=== PATIENT | female | born 1940 | race American Indian/Alaskan Native ===

== ENCOUNTER 2016-10-10 09:09 | Emergency (ER) | payer MEDICARE ==
--- NOTE | 2016-10-10 13:54 | Emergency Department Report ---
- General Chief Complaint: Upper Respiratory Infection Stated Complaint: FACIAL PAIN Time Seen by Provider: 10/10/16 13:33 Source: patient Mode of arrival: Ambulatory Limitations: Physical Limitation - History of Present Illness Initial Comments: Patient complains of facial pain and pressure, headache, runny and stuffy nose, sinus drainage, cough productive of phlegm, and bilateral ear ache 6-7 days. States called PCP and instructed to come to ED. Denies fever, chills, N/V/D, abdomen or flank pain, chest pain or discomfort, weakness, dizziness. Denies self treatment piror to ED presentation. Denies other acute complaints today. - Related Data Home Medications Medication Instructions Recorded Confirmed Last Taken Esomeprazole Magnesium [NexIUM] 40 mg PO QDAY 09/18/13 07/24/14 07/24/14 Insulin Aspart [NovoLOG 100 10 units SUBCONJ UNK 09/18/13 07/24/14 07/24/14 UNITS/ML VIAL] Rosuvastatin (Nf) [Crestor] 10 mg PO QDAY 09/18/13 07/24/14 07/24/14 metFORMIN [Glucophage] 1,000 mg PO BID 09/18/13 07/24/14 07/24/14 Previous Rx's Medication Instructions Recorded Last Taken Type Ipratropium/Albuterol Sulfate 1 ampul IH TID #90 ampul.neb 09/23/13 07/24/14 Rx [Duoneb 0.5 mg-3 mg/3 ml Soln] Fluticasone Propionate [Flonase] 200 mcg NS QDAY #1 spray 02/14/14 07/24/14 Rx Fluticasone/Salmeterol [Advair 1 puff IH BID #1 disk.w.dev 02/14/14 07/24/14 Rx Diskus 500-50 mcg] Lactobacillus Acidophil [Lactinex] 1 each PO TID #30 tablet 02/14/14 07/24/14 Rx Montelukast [Singulair] 10 mg PO QHS #30 tablet 02/14/14 07/24/14 Rx Pregabalin [Lyrica] 150 mg PO BID 30 Days 02/14/14 07/24/14 Rx Sodium Chloride 0.65% Nasal [Deep 2 spray NS TID #1 bottle 02/14/14 07/24/14 Rx Sea NASAL SPRAY] buPROPion SR [Wellbutrin SR] 150 mg PO QDAY #30 tablet 02/14/14 07/24/14 Rx Cefuroxime Axetil [Ceftin] 500 mg PO Q12H #10 tablet 07/27/14 Unknown Rx Insulin Glargine,Hum.rec.anlog 24 units SUBCONJ QHS #1000 ml 07/27/14 07/24/14 Rx [Lantus Solostar] Prednisone [predniSONE 10 mg 10 mg PO .TAPER #1 tab.ds.pk 07/27/14 Unknown Rx (6-Day Pack, 21 Tabs)] guaiFENesin ER [Mucinex ER] 600 mg PO Q12H PRN #30 tablet.er 07/27/14 Unknown Rx Amoxicillin/K Clav Tab [Augmentin 1 tab PO Q12HR #20 tab 10/10/16 Unknown Rx 875 mg] Fluticasone [Flonase] 1 spray NS QDAY #1 bottle 10/10/16 Unknown Rx Loratadine/Pseudoephedrine 1 tab PO DAILY #30 tablet 10/10/16 Unknown Rx [Claritin-D 24Hr] Allergies Allergy/AdvReac Type Severity Reaction Status Date / Time No Known Allergies Allergy Verified 10/10/16 09:46 ED Review of Systems ROS: Stated complaint: FACIAL PAIN Other details as noted in HPI Comment: All other systems reviewed and negative ED Past Medical Hx - Past Medical History Hx Hypertension: Yes () Hx Heart Attack/AMI: No Hx Congestive Heart Failure: No Hx Diabetes: Yes Hx Deep Vein Thrombosis: No Hx Pulmonary Embolism: No Hx GERD: Yes Hx Liver Disease: No Hx Sickle Cell Disease: No Hx Arthritis: Yes (HANDS AND LEFT SHOULDER) Hx Asthma: Yes Hx COPD: Yes Hx Tuberculosis: No Hx HIV: No - Surgical History Hx Coronary Stent: No Hx Open Heart Surgery: No Hx Pacemaker: No Hx Internal Defibrillator: No Hx Cholecystectomy: No Hx Appendectomy: No Hx Breast Surgery: No - Social History Smoking Status: Never Smoker Substance Use Type: None - Medications Home Medications: Home Medications Medication Instructions Recorded Confirmed Last Taken Type Esomeprazole Magnesium [NexIUM] 40 mg PO QDAY 09/18/13 07/24/14 07/24/14 History Insulin Aspart [NovoLOG 100 10 units SUBCONJ UNK 09/18/13 07/24/14 07/24/14 History UNITS/ML VIAL] Rosuvastatin (Nf) [Crestor] 10 mg PO QDAY 09/18/13 07/24/14 07/24/14 History metFORMIN [Glucophage] 1,000 mg PO BID 09/18/13 07/24/14 07/24/14 History Ipratropium/Albuterol Sulfate 1 ampul IH TID #90 ampul.neb 09/23/13 07/24/1412/02 Rx [Duoneb 0.5 mg-3 mg/3 ml Soln] Fluticasone Propionate [Flonase] 200 mcg NS QDAY #1 spray 02/14/14 07/24/1412/02 Rx Fluticasone/Salmeterol [Advair 1 puff IH BID #1 disk.w.dev 02/14/14 07/24/1412/02 Rx Diskus 500-50 mcg] Lactobacillus Acidophil [Lactinex] 1 each PO TID #30 tablet 02/14/14 07/24/14 Rx Montelukast [Singulair] 10 mg PO QHS #30 tablet 02/14/14 07/24/14 07/24/14 Rx Pregabalin [Lyrica] 150 mg PO BID 30 Days 02/14/14 07/24/14 07/24/14 Rx Sodium Chloride 0.65% Nasal [Deep 2 spray NS TID #1 bottle 02/14/14 07/24/1412/02 Rx Sea NASAL SPRAY] buPROPion SR [Wellbutrin SR] 150 mg PO QDAY #30 tablet 02/14/14 07/24/14 Rx Cefuroxime Axetil [Ceftin] 500 mg PO Q12H #10 tablet 07/27/14 Unknown Rx Insulin Glargine,Hum.rec.anlog 24 units SUBCONJ QHS #1000 ml 07/27/14 07/24/14 07/24/14 Rx [Lantus Solostar] Prednisone [predniSONE 10 mg 10 mg PO .TAPER #1 tab.ds.pk 07/27/14 Unknown Rx (6-Day Pack, 21 Tabs)] guaiFENesin ER [Mucinex ER] 600 mg PO Q12H PRN #30 tablet.er 07/27/14 Unknown Rx Amoxicillin/K Clav Tab [Augmentin 1 tab PO Q12HR #20 tab 10/10/16 Unknown Rx 875 mg] Fluticasone [Flonase] 1 spray NS QDAY #1 bottle 10/10/16 Unknown Rx Loratadine/Pseudoephedrine 1 tab PO DAILY #30 tablet 10/10/16 Unknown Rx [Claritin-D 24Hr] ED Physical Exam - General Limitations: Physical Limitation General appearance: alert, in no apparent distress - Head Head exam: Present: atraumatic, normocephalic - Eye Eye exam: Present: normal appearance, PERRL, EOMI. Absent: scleral icterus, conjunctival injection, periorbital swelling, periorbital tenderness - ENT ENT exam: Present: mucous membranes moist, TM's normal bilaterally, normal external ear exam. Absent: normal orophraynx (PND) - Neck Neck exam: Present: normal inspection, full ROM. Absent: tenderness, meningismus, lymphadenopathy - Respiratory Respiratory exam: Present: normal lung sounds bilaterally. Absent: respiratory distress, wheezes, rales, rhonchi, stridor, chest wall tenderness, accessory muscle use, decreased breath sounds, prolonged expiratory - Cardiovascular Cardiovascular Exam: Present: regular rate, normal rhythm - GI/Abdominal GI/Abdominal exam: Present: soft, normal bowel sounds. Absent: tenderness - Extremities Exam Extremities exam: Present: normal inspection, full ROM, normal capillary refill. Absent: pedal edema - Neurological Exam Neurological exam: Present: alert, oriented X3, abnormal gait (uses cane to ambulate.), reflexes normal. Absent: motor sensory deficit - Psychiatric Psychiatric exam: Present: normal affect, normal mood - Skin Skin exam: Present: warm, dry, intact, normal color. Absent: rash, cyanosis, diaphoretic, pallor ED Course Vital Signs 10/10/16 09:42 Temperature 98.5 F Pulse Rate 96 H Respiratory 20 Rate Blood Pressure 127/69 O2 Sat by Pulse 100 Oximetry Critical care attestation.: If time is entered above; I have spent that time in minutes in the direct care of this critically ill patient, excluding procedure time. ED Disposition Clinical Impression: Sinusitis Qualifiers: Sinusitis location: frontal Chronicity: acute Recurrence: not specified as recurrent Qualified Code(s): J01.10 - Acute frontal sinusitis, unspecified Disposition: DISCHARGED TO HOME OR SELFCARE Is pt being admited?: No Does the pt Need Aspirin: No Condition: Stable Instructions: Sinusitis (ED) Prescriptions: Amoxicillin/K Clav Tab [Augmentin 875 mg] 1 tab PO Q12HR #20 tab Loratadine/Pseudoephedrine [Claritin-D 24Hr] 1 tab PO DAILY #30 tablet Fluticasone [Flonase] 1 spray NS QDAY #1 bottle Referrals: HO TIRADO MD [Primary Care Provider] - 2-3 Days
[2016-10-10 14:27] VITALS: BP 153/72
== END 2016-10-10 14:15 | disposition home or self-care (01) ==
LOC: ED 09:09
DX: J01.10 Acute frontal sinusitis, unspecified (principal); I10 Essential (primary) hypertension; E11.9 Type 2 diabetes mellitus without complications; K21.9 Gastro-esophageal reflux disease without esophagitis; M19.90 Unspecified osteoarthritis, unspecified site; J45.909 Unspecified asthma, uncomplicated; Z79.4 Long term (current) use of insulin
CPT/HCPCS: 99282

== ENCOUNTER 2016-12-24 15:59 | Emergency (ER) | payer MEDICARE ==
[2016-12-24 17:16] LABS: Calcium 8.4 mg/dL (8.4-10.2); Hematocrit 36.3 % (30.3-42.9); Mean Corpuscular HGB Conc 33 % (30-34); Mean Corpuscular Hemoglobin 28 pg (28-32); Mean Corpuscular Volume 85 fl (79-97); Platelet Count 258 K/mm3 (140-440); Potassium 4.8 mmol/L (3.6-5.0); Red Blood Count 4.26 M/mm3 (3.65-5.03); Red Cell Distribution Width 14.8 % (13.2-15.2); White Blood Count 5.2 K/mm3 (4.5-11.0)
[2016-12-24 17:55] LABS: Blastocytes % (Manual) 0 %
[2016-12-24 17:56] LABS: Diff Status Complete; Platelet Estimate Consistent w Auto; RBC Morphology Normal
--- NOTE | 2016-12-24 21:13 | Emergency Department Report ---
HPI - General Chief Complaint: Extremity Problem,Nontraumatic Time Seen by Provider: 12/24/16 20:27 - HPI HPI: This is a 76-year-old Afro[place] female who presents to the emergency department from her home with her daughter at bedside, whom she lives with. The patient has been here for 2 main reasons. First, the patient has been having insomnia for the past few nights. For the past few weeks if not months, the patient has been having some type of hallucination which she feels that there is something in her bed that is moving around in the mattress as well as in a recliner that she uses. This hallucination or sensation keeps her from sleeping. He got to the point where the patient even can't open her previous mattress to try and find out what is inside. She now has a new mattress but still has the same hallucinations. She understands that there was nothing found in the previous mattress but still cannot convince herself that there is nothing in her current mattress. The patient's other complaint is that she has been having a few days of bilateral lower extremity swelling and some pain in the knees. There is been no trauma. She denies any skin color change. The patient does have a history of depression for which she takes Wellbutrin but denies any suicidal or homicidal ideations, auditory hallucinations. The patient also has a history of arthritis, asthma, COPD not on home O2, insulin- dependent diabetes, GERD, hypertension. Her primary care doctor is Dr. Keshawn Melgar. No recent travel or sick contacts at home. ED Past Medical Hx - Past Medical History Previous Medical History?: Yes Hx Hypertension: Yes (1980s) Hx Heart Attack/AMI: No Hx Congestive Heart Failure: No Hx Diabetes: Yes Hx Deep Vein Thrombosis: No Hx Pulmonary Embolism: No Hx GERD: Yes Hx Liver Disease: No Hx Sickle Cell Disease: No Hx Arthritis: Yes (HANDS AND LEFT SHOULDER) Hx Asthma: Yes Hx COPD: Yes Hx Tuberculosis: No Hx HIV: No - Surgical History Hx Coronary Stent: No Hx Open Heart Surgery: No Hx Pacemaker: No Hx Internal Defibrillator: No Hx Cholecystectomy: No Hx Appendectomy: No Hx Breast Surgery: No - Social History Smoking Status: Never Smoker Substance Use Type: None - Medications Home Medications: Home Medications Medication Instructions Recorded Confirmed Last Taken Type Esomeprazole Magnesium [NexIUM] 40 mg PO QDAY 09/18/13 07/24/14 07/24/14 History Insulin Aspart [NovoLOG 100 10 units SUBCONJ UNK 09/18/13 07/24/14 07/24/14 History UNITS/ML VIAL] Rosuvastatin (Nf) [Crestor] 10 mg PO QDAY 09/18/13 07/24/14 07/24/14 History metFORMIN [Glucophage] 1,000 mg PO BID 09/18/13 07/24/14 07/24/14 History Ipratropium/Albuterol Sulfate 1 ampul IH TID #90 ampul.neb 09/23/13 07/24/1412/02 Rx [Duoneb 0.5 mg-3 mg/3 ml Soln] Fluticasone Propionate [Flonase] 200 mcg NS QDAY #1 spray 02/14/14 07/24/1412/02 Rx Fluticasone/Salmeterol [Advair 1 puff IH BID #1 disk.w.dev 02/14/14 07/24/1412/02 Rx Diskus 500-50 mcg] Lactobacillus Acidophil [Lactinex] 1 each PO TID #30 tablet 02/14/14 07/24/14 Rx Montelukast [Singulair] 10 mg PO QHS #30 tablet 02/14/14 07/24/14 07/24/14 Rx Pregabalin [Lyrica] 150 mg PO BID 30 Days 02/14/14 07/24/14 07/24/14 Rx Sodium Chloride 0.65% Nasal [Deep 2 spray NS TID #1 bottle 02/14/14 07/24/1412/02 Rx Sea NASAL SPRAY] buPROPion SR [Wellbutrin SR] 150 mg PO QDAY #30 tablet 02/14/14 07/24/14 Rx Cefuroxime Axetil [Ceftin] 500 mg PO Q12H #10 tablet 07/27/14 Unknown Rx Insulin Glargine,Hum.rec.anlog 24 units SUBCONJ QHS #1000 ml 07/27/14 07/24/14 07/24/14 Rx [Lantus Solostar] Prednisone [predniSONE 10 mg 10 mg PO .TAPER #1 tab.ds.pk 07/27/14 Unknown Rx (6-Day Pack, 21 Tabs)] guaiFENesin ER [Mucinex ER] 600 mg PO Q12H PRN #30 tablet.er 07/27/14 Unknown Rx Amoxicillin/K Clav Tab [Augmentin 1 tab PO Q12HR #20 tab 10/10/16 Unknown Rx 875 mg] Fluticasone [Flonase] 1 spray NS QDAY #1 bottle 10/10/16 Unknown Rx Loratadine/Pseudoephedrine 1 tab PO DAILY #30 tablet 10/10/16 Unknown Rx [Claritin-D 24Hr] ALPRAZolam [Xanax TAB] 0.25 mg PO QHS PRN #8 tablet 12/24/16 Unknown Rx ED Review of Systems ROS: Stated complaint: SWOLLEN LEGS/PAIN /ANXIETY/HALLUCINATIONS Other details as noted in HPI Comment: All other systems reviewed and negative Constitutional: denies: chills, fever Eyes: denies: eye pain, eye discharge, vision change ENT: denies: ear pain, throat pain Respiratory: denies: cough, shortness of breath, wheezing Cardiovascular: edema. denies: chest pain Gastrointestinal: denies: abdominal pain, nausea, diarrhea Genitourinary: denies: urgency, dysuria, discharge Musculoskeletal: denies: back pain, joint swelling, arthralgia Skin: denies: rash, lesions Neurological: denies: headache, weakness, paresthesias Psychiatric: anxiety, other (generalized hallucinations, insomnia). denies: auditory hallucinations, visual hallucinations, homicidal thoughts, suicidal thoughts Physical Exam - Physical Exam Vital Signs: Vital Signs 12/24/16 12/24/16 16:05 20:58 Temperature 97.5 F L Pulse Rate 82 Respiratory 18 18 Rate Blood Pressure 122/71 O2 Sat by Pulse 100 100 Oximetry Physical Exam: GENERAL: The patient is well-developed well-nourished. HEENT: Normocephalic. Atraumatic. Extraocular motions are intact. Patient has moist mucous membranes. Pupils equal reactive to light bilaterally. NECK: Supple. Trachea is midline. CHEST/LUNGS: Clear to auscultation. There is no respiratory distress noted. HEART/CARDIOVASCULAR: Regular. There is no tachycardia. There is no gallop rub or murmur. ABDOMEN: Abdomen is soft, nontender. Patient has normal bowel sounds. There is no abdominal distention. SKIN: One plus pitting edema of the bilateral lower extremity. No erythema, warmth, rash. No weeping. Skin is warm and dry. NEURO: The patient is awake, alert, and oriented. The patient is cooperative. The patient has no focal neurologic deficits. The patient has normal speech. Cranial nerves II through XII grossly intact. MUSCULOSKELETAL: There is some mild tenderness to palpation to the bilateral knees. Negative anterior posterior drawer test. Pedal pulses are intact. There is no evidence of acute injury. ED Course Vital Signs 12/24/16 12/24/16 16:05 20:58 Temperature 97.5 F L Pulse Rate 82 Respiratory 18 18 Rate Blood Pressure 122/71 O2 Sat by Pulse 100 100 Oximetry ED Medical Decision Making - Lab Data Result diagrams: 12/24/16 16:46 12/24/16 16:46 - Medical Decision Making 76 year old female presents with a few days of some knee pain and some lower extremity swelling. She also complains of a few days of insomnia and some more chronic but specific hallucination. Regarding the patient's knee pain and lower extremity swelling, there is no obvious deformities. There are no skin color changes. There has been no trauma. For this reason I did not feel that imaging of the knees by x-ray was necessary. However with the lower extremity swelling, a BNP was obtained came back at 40 and therefore is very low suspicion for CHF. It is still low suspicion for a DVT as well as it is bilateral and the patient is not completely immobile and has not had any recent surgery. However this will be ruled out with a venous Doppler tomorrow. Patient was given a order to go to outpatient radiology to have venous Doppler done. Positive for DVTs, she will be referred back to the emergency department. If negative, she will continue to follow-up with her primary care doctor. The other issue for this patient is some recent insomnia and a hallucination that there is something within her mattress and/or recliner. While patient understands that her previous mattress did not have anything in it, because she had opened it up, she is unable to convince herself at night while sleeping that there is nothing in the mattress. However it seems to keep her from sleeping and appears to be a chronic issue. However the patient does not have any auditory hallucinations, specific visual hallucinations, or any suicidal or homicidal ideations. She does not appear to be a candidate to be made a 1013 for inpatient psychiatric treatment. Since patient has good follow-up with primary care, lives and is monitored by her daughter, I have given the patient a small prescription of low-dose Xanax to help her get some rest and hopefully will help with her hallucinations as well. However they understand to return if there is any change in her mental status or psychiatric status, otherwise they will follow up with primary care doctor. They are aware of the side effects and risks of the Xanax including respiratory depression. - Differential Diagnosis schizophrenia, CHF, venous stasis, DVT, dementia Critical Care Time: No Critical care attestation.: If time is entered above; I have spent that time in minutes in the direct care of this critically ill patient, excluding procedure time. ED Disposition Clinical Impression: Hallucinations, Renal insufficiency Insomnia Qualifiers: Insomnia type: unspecified Qualified Code(s): G47.00 - Insomnia, unspecified Lower extremity edema Qualifiers: Laterality: bilateral Qualified Code(s): R60.0 - Localized edema Disposition: DISCHARGED TO HOME OR SELFCARE Is pt being admited?: No Condition: Stable Instructions: Leg Edema (ED), Insomnia (ED), Anxiety (ED) Additional Instructions: Please follow-up tomorrow in the outpatient imaging department for lower extremity ultrasounds to rule out a DVT. Call the number provided to schedule an appointment. If the ultrasound is positive, he will be redirected back to the emergency department. If negative, follow up outpatient. Please follow-up with your primary care doctor in the next few days regarding your insomnia, nighttime hallucinations, lower extremity swelling and impaired kidney function. Return to the emergency department with any worsening of your symptoms or any acute distress. Prescriptions: ALPRAZolam [Xanax TAB] 0.25 mg PO QHS PRN #8 tablet PRN Reason: Insomnia Referrals: PRIMARY CAREMD [Primary Care Provider] - 3-5 Days Time of Disposition: 23:06
[2016-12-24 21:28] LABS: Bilirubin,Urine NEG (Negative)
[2016-12-24 21:29] LABS: Blood,Urine NEG (Negative); Ketones,Urine NEG (Negative); Leukocyte Esterase,Urine NEG (Negative); Mucus,Urine FEW /HPF; Nitrite,Urine NEG (Negative); Protein,Urine <15 mg/dL mg/dL (Negative); Urobilinogen,Urine < 2.0 mg/dL (<2.0)
[2016-12-24 22:42] VITALS: BP 138/70
[2016-12-24] MEDS ORDERED: XANAX PO ONE (23:04)
== END 2016-12-24 23:21 | disposition home or self-care (01) ==
LOC: ED 15:59
DX: N28.9 Disorder of kidney and ureter, unspecified (principal); R44.3 Hallucinations, unspecified; G47.00 Insomnia, unspecified; R60.0 Localized edema; I10 Essential (primary) hypertension; E11.9 Type 2 diabetes mellitus without complications; K21.9 Gastro-esophageal reflux disease without esophagitis; M19.90 Unspecified osteoarthritis, unspecified site; J45.909 Unspecified asthma, uncomplicated; F32.9 Major depressive disorder, single episode, unspecified; J44.9 Chronic obstructive pulmonary disease, unspecified; Z79.4 Long term (current) use of insulin
CPT/HCPCS: 36415; 80048; 81001; 83880; 84443; 85007; 85025; 99283

== ENCOUNTER 2017-03-28 09:16 | Emergency (ER) | payer MEDICARE ==
[2017-03-28 10:10] LABS: Hematocrit 39.9 % (30.3-42.9); Mean Corpuscular HGB Conc 33 % (30-34); Mean Corpuscular Hemoglobin 28 pg (28-32); Mean Corpuscular Volume 86 fl (79-97); Platelet Count 303 K/mm3 (140-440); Red Blood Count 4.66 M/mm3 (3.65-5.03); Red Cell Distribution Width 14.4 % (13.2-15.2); White Blood Count 4.4 K/mm3 (4.5-11.0)
[2017-03-28 10:23] LABS: BUN/Creatinine Ratio 14.16; Calcium 9.2 mg/dL (8.4-10.2); Chloride 91.2 mmol/L (98-107); Potassium 4.6 mmol/L (3.6-5.0)
[2017-03-28 10:45] LABS: Bacteria,Urine 1+ /HPF (Negative); Bilirubin,Urine NEG (Negative); Blood,Urine NEG (Negative); Ketones,Urine NEG (Negative); Leukocyte Esterase,Urine NEG (Negative); Mucus,Urine FEW /HPF; Nitrite,Urine NEG (Negative); Protein,Urine <15 mg/dL mg/dL (Negative); Urobilinogen,Urine < 2.0 mg/dL (<2.0)
[2017-03-28 11:01] LABS: Basophils % (Manual) 0 % (0.0-1.8); Blastocytes % (Manual) 0 %
[2017-03-28 11:02] LABS: Diff Status Complete; RBC Morphology Normal
[2017-03-28] MEDS ORDERED: NACL 0.9% 500 ML 500 ML IV ONE ×2 (13:23→14:10)
[2017-03-28] MEDS ORDERED: NACL ONE (13:35)
--- NOTE | 2017-03-28 14:03 | Cat Scan Report ---
CT FACIAL BONES WITH CONTRAST: 03/28/17 09:16:00 CLINICAL: Facial swelling. TECHNIQUE: Volumetric acquisition and 1.25 mm scan reconstructions after the uneventful intravenous injection of 100 cc Omnipaque-300. Consent was obtained prior to the administration of contrast. Sagittal and coronal reformats were performed. FINDINGS: Pansinusitis with complete opacification of bilateral frontal, ethmoid and sphenoid sinuses. Near-complete opacification of bilateral maxillary sinuses. The facial bones are intact with no fracture and no bone lesion. Only a few teeth are identified. However, the mandible and maxilla are intact. No signs of abscess or osteomyelitis. The mucosal structures of the nasopharynx, oropharynx and hypopharynx are normal. Imaged portions of the larynx are normal. The imaged portions of the thyroid are normal. A 1 cm cyst of the left submandibular gland. The salivary glands are otherwise normal. No mass or lymphadenopathy. There are shotty lymph nodes throughout the neck. The superficial and deep veins of the neck are relatively large. No evidence of venous or arterial thrombosis. A soft tissue mass of the right supraorbital region measures approximately 3.5 x 1.5 cm. There is heterogeneous enhancement and areas of hypodensity centrally within the mass. No air is identified. The soft tissues are otherwise normal. No other inflammatory changes. IMPRESSION: 1. Pansinusitis. 2. A 3.5 x 1.5 cm right super orbital soft tissue mass with heterogeneous enhancement. Inflammatory mass and tumor are considerations. No air is identified to definitively diagnose abscess. 3. Venous congestion of the head and neck without an identified etiology. 4. A benign 1 cm left submandibular gland cyst.
--- NOTE | 2017-03-28 14:54 | Emergency Department Report ---
HPI - General Chief Complaint: Skin/Abscess/Foreign Body Time Seen by Provider: 03/28/17 13:11 - HPI HPI: This is a 76-year-old Afro-[place] female presents emergency department from home with complaint of some redness and swelling just above the right eyebrow that has been there and getting progressively worse since the end of February. It is tender to palpation. There has been no bleeding, weeping or drainage from it. She has not taken anything for her symptoms prior to presentation. The area is also very itchy since last weekend. She has a past medical history of arthritis, asthma, COPD, diabetes and hypertension. She is insulin-dependent diabetic and says she is compliant with her medications. No recent travel or sick contacts at home. ED Past Medical Hx - Past Medical History Hx Hypertension: Yes (1980s) Hx Heart Attack/AMI: No Hx Congestive Heart Failure: No Hx Diabetes: Yes Hx Deep Vein Thrombosis: No Hx Pulmonary Embolism: No Hx GERD: Yes Hx Liver Disease: No Hx Sickle Cell Disease: No Hx Arthritis: Yes (HANDS AND LEFT SHOULDER) Hx Asthma: Yes Hx COPD: Yes Hx Tuberculosis: No Hx HIV: No Additional medical history: HIGH CHOLESTEROL - Surgical History Hx Coronary Stent: No Hx Open Heart Surgery: No Hx Pacemaker: No Hx Internal Defibrillator: No Hx Cholecystectomy: No Hx Appendectomy: No Hx Breast Surgery: No Additional Surgical History: SINUS SURGERY - Social History Smoking Status: Never Smoker Substance Use Type: None - Medications Home Medications: Home Medications Medication Instructions Recorded Confirmed Last Taken Type Esomeprazole Magnesium [NexIUM] 40 mg PO QDAY 09/18/13 07/24/14 07/24/14 History Insulin Aspart [NovoLOG 100 10 units SUBCONJ UNK 09/18/13 07/24/14 07/24/14 History UNITS/ML VIAL] Rosuvastatin (Nf) [Crestor] 10 mg PO QDAY 09/18/13 07/24/14 07/24/14 History metFORMIN [Glucophage] 1,000 mg PO BID 09/18/13 07/24/14 07/24/14 History Ipratropium/Albuterol Sulfate 1 ampul IH TID #90 ampul.neb 09/23/13 07/24/1412/02 Rx [Duoneb 0.5 mg-3 mg/3 ml Soln] Fluticasone Propionate [Flonase] 200 mcg NS QDAY #1 spray 02/14/14 07/24/1412/02 Rx Fluticasone/Salmeterol [Advair 1 puff IH BID #1 disk.w.dev 02/14/14 07/24/1412/02 Rx Diskus 500-50 mcg] Lactobacillus Acidophil [Lactinex] 1 each PO TID #30 tablet 02/14/14 07/24/14 Rx Montelukast [Singulair] 10 mg PO QHS #30 tablet 02/14/14 07/24/14 07/24/14 Rx Pregabalin [Lyrica] 150 mg PO BID 30 Days 02/14/14 07/24/14 07/24/14 Rx Sodium Chloride 0.65% Nasal [Deep 2 spray NS TID #1 bottle 02/14/14 07/24/1412/02 Rx Sea NASAL SPRAY] buPROPion SR [Wellbutrin SR] 150 mg PO QDAY #30 tablet 02/14/14 07/24/14 Rx Cefuroxime Axetil [Ceftin] 500 mg PO Q12H #10 tablet 07/27/14 Unknown Rx Insulin Glargine,Hum.rec.anlog 24 units SUBCONJ QHS #1000 ml 07/27/14 07/24/14 07/24/14 Rx [Lantus Solostar] Prednisone [predniSONE 10 mg 10 mg PO .TAPER #1 tab.ds.pk 07/27/14 Unknown Rx (6-Day Pack, 21 Tabs)] guaiFENesin ER [Mucinex ER] 600 mg PO Q12H PRN #30 tablet.er 07/27/14 Unknown Rx Amoxicillin/K Clav Tab [Augmentin 1 tab PO Q12HR #20 tab 10/10/16 Unknown Rx 875 mg] Fluticasone [Flonase] 1 spray NS QDAY #1 bottle 10/10/16 Unknown Rx Loratadine/Pseudoephedrine 1 tab PO DAILY #30 tablet 10/10/16 Unknown Rx [Claritin-D 24Hr] ALPRAZolam [Xanax TAB] 0.25 mg PO QHS PRN #8 tablet 12/24/16 Unknown Rx Sulfamethoxazole/Trimethoprim 1 each PO BID #14 tablet 03/28/17 Unknown Rx [Bactrim DS TAB] ED Review of Systems ROS: Stated complaint: EYE SWOLLEN Other details as noted in HPI Comment: All other systems reviewed and negative Constitutional: denies: chills, fever Eyes: denies: eye discharge, vision change ENT: denies: ear pain, throat pain Respiratory: denies: cough, shortness of breath, wheezing Cardiovascular: denies: chest pain, palpitations Gastrointestinal: denies: abdominal pain, nausea, diarrhea Genitourinary: denies: urgency, dysuria, discharge Musculoskeletal: denies: back pain, joint swelling, arthralgia Skin: lesions, pruritus Neurological: denies: headache, weakness, paresthesias Physical Exam - Physical Exam Vital Signs: Vital Signs 03/28/17 03/28/17 03/28/17 09:40 13:06 13:07 Temperature 98.2 F Pulse Rate 99 H Respiratory 17 Rate Blood Pressure 163/86 136/85 136/85 O2 Sat by Pulse 100 100 Oximetry 03/28/17 03/28/17 03/28/17 13:09 13:11 13:13 Temperature Pulse Rate Respiratory Rate Blood Pressure 136/85 136/85 136/85 O2 Sat by Pulse 100 99 100 Oximetry 03/28/17 03/28/17 03/28/17 13:15 13:17 13:19 Temperature Pulse Rate Respiratory Rate Blood Pressure 136/85 136/85 136/85 O2 Sat by Pulse 99 99 100 Oximetry 03/28/17 03/28/17 03/28/17 13:21 13:23 13:25 Temperature Pulse Rate Respiratory Rate Blood Pressure 136/85 136/85 136/85 O2 Sat by Pulse 100 99 100 Oximetry 03/28/17 03/28/17 03/28/17 13:27 13:29 13:30 Temperature Pulse Rate Respiratory Rate Blood Pressure 136/85 136/85 151/75 O2 Sat by Pulse 100 100 100 Oximetry 03/28/17 03/28/17 03/28/17 13:31 13:38 14:01 Temperature Pulse Rate Respiratory 17 Rate Blood Pressure 151/75 136/85 O2 Sat by Pulse 99 100 100 Oximetry 03/28/17 03/28/17 03/28/17 14:03 14:05 14:07 Temperature Pulse Rate Respiratory Rate Blood Pressure 136/85 136/85 136/85 O2 Sat by Pulse 100 100 99 Oximetry 03/28/17 03/28/17 03/28/17 14:09 14:11 14:13 Temperature Pulse Rate Respiratory Rate Blood Pressure 136/85 136/85 136/85 O2 Sat by Pulse 100 100 100 Oximetry 03/28/17 03/28/17 03/28/17 14:15 14:17 14:19 Temperature Pulse Rate Respiratory Rate Blood Pressure 136/85 136/85 136/85 O2 Sat by Pulse 100 100 100 Oximetry 03/28/17 03/28/17 03/28/17 14:21 14:23 14:25 Temperature Pulse Rate Respiratory Rate Blood Pressure 136/85 136/85 136/85 O2 Sat by Pulse 100 100 100 Oximetry 03/28/17 03/28/17 14:27 14:29 Temperature Pulse Rate Respiratory Rate Blood Pressure 136/85 136/85 O2 Sat by Pulse 100 100 Oximetry Physical Exam: GENERAL: The patient is well-developed well-nourished. HEENT: Pupils equal reactive to light bilaterally. Extraocular motions are intact. Patient has moist mucous membranes. NECK: Supple. No meningitic signs are noted. There is no adenopathy noted. CHEST/LUNGS: Clear to auscultation. There is no respiratory distress noted. HEART/CARDIOVASCULAR: Regular. There is no tachycardia. There is no gallop rub or murmur. ABDOMEN: Abdomen is soft, nontender. Patient has normal bowel sounds. There is no abdominal distention. SKIN: There is a area of swelling just above the right eyebrow that is about 4 cm in length and 2 cm in width that is raised up from the skin. This area is erythematous, tender to palpation, indurated but there is no warmth or fluctuance. There is no bleeding, weeping or drainage. NEURO: The patient is awake, alert, and oriented. The patient is cooperative. The patient has no focal neurologic deficits. The patient has normal speech. MUSCULOSKELETAL: There is no tenderness or deformity. There is no limitation range of motion. There is no evidence of acute injury. ED Course Vital Signs 03/28/17 03/28/17 03/28/17 09:40 13:06 13:07 Temperature 98.2 F Pulse Rate 99 H Respiratory 17 Rate Blood Pressure 163/86 136/85 136/85 O2 Sat by Pulse 100 100 Oximetry 03/28/17 03/28/17 03/28/17 13:09 13:11 13:13 Temperature Pulse Rate Respiratory Rate Blood Pressure 136/85 136/85 136/85 O2 Sat by Pulse 100 99 100 Oximetry 03/28/17 03/28/17 03/28/17 13:15 13:17 13:19 Temperature Pulse Rate Respiratory Rate Blood Pressure 136/85 136/85 136/85 O2 Sat by Pulse 99 99 100 Oximetry 03/28/17 03/28/17 03/28/17 13:21 13:23 13:25 Temperature Pulse Rate Respiratory Rate Blood Pressure 136/85 136/85 136/85 O2 Sat by Pulse 100 99 100 Oximetry 03/28/17 03/28/17 03/28/17 13:27 13:29 13:30 Temperature Pulse Rate Respiratory Rate Blood Pressure 136/85 136/85 151/75 O2 Sat by Pulse 100 100 100 Oximetry 03/28/17 03/28/17 03/28/17 13:31 13:38 14:01 Temperature Pulse Rate Respiratory 17 Rate Blood Pressure 151/75 136/85 O2 Sat by Pulse 99 100 100 Oximetry 03/28/17 03/28/17 03/28/17 14:03 14:05 14:07 Temperature Pulse Rate Respiratory Rate Blood Pressure 136/85 136/85 136/85 O2 Sat by Pulse 100 100 99 Oximetry 03/28/17 03/28/17 03/28/17 14:09 14:11 14:13 Temperature Pulse Rate Respiratory Rate Blood Pressure 136/85 136/85 136/85 O2 Sat by Pulse 100 100 100 Oximetry 03/28/17 03/28/17 03/28/17 14:15 14:17 14:19 Temperature Pulse Rate Respiratory Rate Blood Pressure 136/85 136/85 136/85 O2 Sat by Pulse 100 100 100 Oximetry 03/28/17 03/28/17 03/28/17 14:21 14:23 14:25 Temperature Pulse Rate Respiratory Rate Blood Pressure 136/85 136/85 136/85 O2 Sat by Pulse 100 100 100 Oximetry 03/28/17 03/28/17 14:27 14:29 Temperature Pulse Rate Respiratory Rate Blood Pressure 136/85 136/85 O2 Sat by Pulse 100 100 Oximetry ED Medical Decision Making - Lab Data Result diagrams: 03/28/17 09:48 03/28/17 09:48 - Radiology Data Radiology results: report reviewed CT FACIAL BONES WITH CONTRAST: 03/28/17 09:16:00 CLINICAL: Facial swelling. TECHNIQUE: Volumetric acquisition and 1.25 mm scan reconstructions after the uneventful intravenous injection of 100 cc Omnipaque-300. Consent was obtained prior to the administration of contrast. Sagittal and coronal reformats were performed. FINDINGS: Pansinusitis with complete opacification of bilateral frontal, ethmoid and sphenoid sinuses. Near-complete opacification of bilateral maxillary sinuses. The facial bones are intact with no fracture and no bone lesion. Only a few teeth are identified. However, the mandible and maxilla are intact. No signs of abscess or osteomyelitis. The mucosal structures of the nasopharynx, oropharynx and hypopharynx are normal. Imaged portions of the larynx are normal. The imaged portions of the thyroid are normal. A 1 cm cyst of the left submandibular gland. The salivary glands are otherwise normal. No mass or lymphadenopathy. There are shotty lymph nodes throughout the neck. The superficial and deep veins of the neck are relatively large. No evidence of venous or arterial thrombosis. A soft tissue mass of the right supraorbital region measures approximately 3.5 x 1.5 cm. There is heterogeneous enhancement and areas of hypodensity centrally within the mass. No air is identified. The soft tissues are otherwise normal. No other inflammatory changes. IMPRESSION: 1. Pansinusitis. 2. A 3.5 x 1.5 cm right super orbital soft tissue mass with heterogeneous enhancement. Inflammatory mass and tumor are considerations. No air is identified to definitively diagnose abscess. 3. Venous congestion of the head and neck without an identified etiology. 4. A benign 1 cm left submandibular gland cyst. - Medical Decision Making 76-year-old female presents emergency Department with a 2 week history of swelling right above the right eyebrow. On physical examination it does not appear consistent with an abscess and is more of some type of induration or inflammatory mass. I took the ultrasound and there was no fluid collection seen. Patient was still sent for a CT of the face without contrast that confirms inflammatory mass versus tumor. Therefore no I&D to be done. Patient' s labs show hyperglycemia with a blood sugar close to 500. There is no significant elevation in the anion gap. She has low suspicion for diabetic ketoacidosis or HHNK. She was given 1 L of IV fluid and 8 units of insulin and her blood sugar came down to about 215. Vital signs stable throughout ED course. Otherwise patient appears stable and safe for discharge home at this time. She will follow-up with Dr. Melgar for further evaluation of this swelling for inflammation versus tumor. She was placed on antibiotics empirically. - Differential Diagnosis abscess, inflammatory mass, malignancy, cyst Critical Care Time: No Critical care attestation.: If time is entered above; I have spent that time in minutes in the direct care of this critically ill patient, excluding procedure time. ED Disposition Clinical Impression: Facial sweating, Hyperglycemia Uncontrolled diabetes mellitus Qualifiers: Diabetes mellitus type: type 1 Diabetes mellitus complication status: with hyperglycemia Qualified Code(s): E10.65 - Type 1 diabetes mellitus with hyperglycemia HTN (hypertension) Qualifiers: Hypertension type: essential hypertension Qualified Code(s): I10 - Essential ( primary) hypertension Disposition: TO HOME OR SELFCARE Is pt being admited?: No Condition: Stable Instructions: Diabetes Mellitus Type 2 in Adults (ED), Hypertension (ED) Additional Instructions: Please follow-up with your primary care doctor in the next few days. Return to the emergency department with any worsening of your symptoms or any acute distress. Try to stay away from foods that are high in sugar, carbohydrates and starches to help with your diabetes. Prescriptions: Sulfamethoxazole/Trimethoprim [Bactrim DS TAB] 1 each PO BID #14 tablet Referrals: PRIMARY CAREMD [Primary Care Provider] - [facility] Time of Disposition: 14:58
[2017-03-28 15:42] VITALS: BP 145/75
== END 2017-03-28 15:42 | disposition home or self-care (01) ==
LOC: ED 09:16
DX: E10.65 Type 1 diabetes mellitus with hyperglycemia (principal); I10 Essential (primary) hypertension; R61 Generalized hyperhidrosis; K21.9 Gastro-esophageal reflux disease without esophagitis; J45.909 Unspecified asthma, uncomplicated; J44.9 Chronic obstructive pulmonary disease, unspecified; E78.00 Pure hypercholesterolemia, unspecified
CPT/HCPCS: 36415; 70487; 80048; 81001; 82805; 82962; 85007; 85025; 96361; 96374; 99284; J7040; Q9967; J1815

== ENCOUNTER 2017-09-09 17:02 | Emergency (ER) | payer MEDICARE ==
[2017-09-09 17:11] VITALS: BP 180/79
[2017-09-09 17:53] LABS: Basophils % (Auto) 0.3 % (0.0-1.8); Eosinophils % (Auto) 0.8 % (0.0-4.3); Hematocrit 39.8 % (30.3-42.9); Mean Corpuscular HGB Conc 33 % (30-34); Mean Corpuscular Hemoglobin 30 pg (28-32); Mean Corpuscular Volume 91 fl (79-97); Platelet Count 294 K/mm3 (140-440); Red Blood Count 4.38 M/mm3 (3.65-5.03); White Blood Count 6.9 K/mm3 (4.5-11.0)
[2017-09-09 18:07] LABS: BUN/Creatinine Ratio 24; Blood Urea Nitrogen 19 mg/dL (7-17); Calcium 8.8 mg/dL (8.4-10.2); Carbon Dioxide 22 mmol/L (22-30); Chloride 95.9 mmol/L (98-107); Glucose 203 mg/dL (65-100); Sodium 131 mmol/L (137-145)
[2017-09-09 18:40] LABS: Anion Gap 18 mmol/L
== END 2017-09-09 18:50 | disposition left against medical advice (07) ==
LOC: ED 17:02
DX: E16.2 Hypoglycemia, unspecified (principal); Z53.21 Procedure and treatment not carried out due to patient leaving prior to being seen by health care provider
CPT/HCPCS: 36415; 80048; 82962; 85025

== ENCOUNTER 2018-05-10 12:08 | Emergency (ER) | payer MEDICARE ==
--- NOTE | 2018-05-10 12:50 | Emergency Department Report ---
HPI - General Chief Complaint: Hypoglycemia Time Seen by Provider: 05/10/18 12:44 - HPI HPI: The patient is a 77-year-old female with a history of diabetes, presents for evaluation of altered mental status and hypoglycemia. Per the patient's family , the patient was found with change in baseline mentation and low blood sugar. Per EMS the patient was found to have severely low blood sugar on scene. The patient was administered an amp of D50 and started on a dextrose drip for treatment of her hyperglycemia. The patient denies fever, headache, neck pain, paresthesias, focal motor weakness, blurry vision, ear pain, chest pain, hemoptysis, dyspnea, abdominal pain, nausea, vomiting, diarrhea, or dysuria. ED Past Medical Hx - Past Medical History Previous Medical History?: Yes Hx Hypertension: Yes (1980s) Hx Heart Attack/AMI: No Hx Congestive Heart Failure: No Hx Diabetes: Yes Hx Deep Vein Thrombosis: No Hx Pulmonary Embolism: No Hx GERD: Yes Hx Liver Disease: No Hx Sickle Cell Disease: No Hx Arthritis: Yes (HANDS AND LEFT SHOULDER) Hx Asthma: Yes Hx COPD: Yes Hx Tuberculosis: No Hx HIV: No Additional medical history: HIGH CHOLESTEROL - Surgical History Past Surgical History?: Yes Hx Coronary Stent: No Hx Open Heart Surgery: No Hx Pacemaker: No Hx Internal Defibrillator: No Hx Cholecystectomy: No Hx Appendectomy: No Hx Breast Surgery: No Additional Surgical History: SINUS SURGERY - Social History Smoking Status: Unknown if ever smoked Substance Use Type: None - Medications Home Medications: Home Medications Medication Instructions Recorded Confirmed Last Taken Type Cetirizine HCl [Zyrtec] 10 mg PO DAILY 11/01/17 11/01/17 Unknown History Esomeprazole Magnesium [NexIUM] 40 mg PO QDAY #30 capsule. 11/13/17 Unknown Rx Fluticasone/Salmeterol [Advair 1 puff IH BID #1 disk.w.dev 11/13/17 Unknown Rx Diskus 500-50 mcg] Insulin Aspart [NovoLOG 100 1 units SUBCONJ UNK #100 units 11/13/17 Unknown Rx UNITS/ML VIAL] Insulin Glargine,Hum.rec.anlog 45 units SUBCONJ QHS 30 Days #100 11/13/17 Unknown Rx [Lantus Solostar] insuln.pen Ipratropium/Albuterol Sulfate 1 ampul IH TID #90 ampul.neb 11/13/17 Unknown Rx [DUONEB *Not for PRN Use*] Montelukast [Singulair] 10 mg PO QHS #30 tablet 11/13/17 Unknown Rx Pregabalin [Lyrica] 150 mg PO BID 30 Days #60 capsule 11/13/17 Unknown Rx Rosuvastatin (Nf) [Crestor] 10 mg PO QDAY #30 tablet 11/13/17 Unknown Rx amLODIPine [Norvasc] 10 mg PO DAILY #30 tablet 11/13/17 Unknown Rx buPROPion SR [Wellbutrin SR] 150 mg PO QDAY #30 tablet 11/13/17 Unknown Rx ED Review of Systems ROS: Stated complaint: HYPOGLYCEMIA Other details as noted in HPI Constitutional: denies: fever ENT: denies: throat or neck pain Respiratory: denies: cough, shortness of breath Cardiovascular: denies: chest pain Endocrine: denies unexplained weight loss or gain Gastrointestinal: denies: abdominal pain, nausea Genitourinary: denies: dysuria Musculoskeletal: denies: leg swelling Skin: denies: rash Neurological: reports AMS (per family) denies: headache Hematological/Lymphatic: denies: easy bleeding or easy bruising Psych: denies sadness or hopelessness Physical Exam - Physical Exam Vital Signs: Vital Signs 05/10/18 12:26 Temperature 98.3 F Pulse Rate 88 Blood Pressure 150/70 O2 Sat by Pulse 98 Oximetry Physical Exam: General: well-nourished, well-developed, no acute distress Head: Normocephalic, atraumatic Eyes: normal sclera ENT: Mucous membranes are pale and dry Neck: No neck stiffness, no cervical adenopathy Respiratory: Breath sounds equal bilaterally, no wheezing, rales, or rhonchi Cardio: S1 and S2 present, no murmurs, rubs, gallops, capillary refill is delayed Abdomen: Normoactive bowel sounds, soft abdomen, no rigidity, no guarding or rebound tenderness Chest WALL/Back: No tenderness to palpation of the chest wall, no CVA tenderness with percussion Musc: No pitting edema Skin: No rash Neuro: no facial drooping, normal speech Psych: Normal affect ED Course Vital Signs 05/10/18 12:26 Temperature 98.3 F Pulse Rate 88 Blood Pressure 150/70 O2 Sat by Pulse 98 Oximetry ED Medical Decision Making - Lab Data Result diagrams: 05/10/18 12:50 05/10/18 12:50 - Medical Decision Making The patient was seen and examined by myself. The patient is placed on a hospital monitor and continuous pulse ox. On initial evaluation, the patient was found to be in no distress. Evaluation orders were placed. On initial evaluation patient's found to have normal blood sugar. The patient's D50 drip was continued. The patient wants emergency department for greater than 2 hours. The patient is given mealtimes which she tolerates. Repeat Accu-Chek is performed and blood sugar is found to remain within normal limits. Critical care attestation.: If time is entered above; I have spent that time in minutes in the direct care of this critically ill patient, excluding procedure time. ED Disposition Clinical Impression: Hypoglycemia due to insulin Disposition: DC-01 TO HOME OR SELFCARE Is pt being admited?: No Does the pt Need Aspirin: No Condition: Stable Instructions: Diabetic Hypoglycemia (ED) Referrals: PRIMARY CARE [Primary Care Provider] - 3-5 Days Time of Disposition: 12:50
[2018-05-10 13:08] LABS: Basophils # (Auto) 0.1 K/mm3 (0.0-0.1); Basophils % (Auto) 0.9 % (0.0-1.8); Eosinophils # (Auto) 0.6 K/mm3 (0.0-0.4); Eosinophils % (Auto) 9.2 % (0.0-4.3); Hematocrit 30.7 % (30.3-42.9); Lymphocytes # (Auto) 1.1 K/mm3 (1.2-5.4); Mean Corpuscular HGB Conc 32 % (30-34); Mean Corpuscular Hemoglobin 29 pg (28-32); Mean Corpuscular Volume 90 fl (79-97); Monocytes # (Auto) 0.6 K/mm3 (0.0-0.8); Platelet Count 289 K/mm3 (140-440); Red Blood Count 3.41 M/mm3 (3.65-5.03); Red Cell Distribution Width 15.4 % (13.2-15.2)
[2018-05-10 13:23] LABS: BUN/Creatinine Ratio 14; Blood Urea Nitrogen 14 mg/dL (7-17); Calcium 8.1 mg/dL (8.4-10.2); Hemolysis Index 10
[2018-05-10 14:53] LABS: Color,Urine Straw (Yellow)
[2018-05-10 14:54] LABS: Bilirubin,Urine Negative (Negative); Blood,Urine Negative (Negative); Protein,Urine <15 mg/dL mg/dL (Negative)
[2018-05-10 15:34] VITALS: BP 130/60
== END 2018-05-10 15:34 | disposition home or self-care (01) ==
LOC: ED 12:08
DX: E11.649 Type 2 diabetes mellitus with hypoglycemia without coma (principal); I10 Essential (primary) hypertension; K21.9 Gastro-esophageal reflux disease without esophagitis; M19.90 Unspecified osteoarthritis, unspecified site; J44.9 Chronic obstructive pulmonary disease, unspecified; E78.00 Pure hypercholesterolemia, unspecified; Z79.4 Long term (current) use of insulin
CPT/HCPCS: 36415; 80048; 81001; 82962; 85025

== ENCOUNTER 2018-05-16 14:19 | Emergency (ER) | payer MEDICARE ==
--- NOTE | 2018-05-16 15:00 | Emergency Department Report ---
ED General Adult HPI - General Stated complaint: LOW BLOOD SUGAR Time Seen by Provider: 05/16/18 14:59 - History of Present Illness Initial comments: Patient is Trevor 7-year-old female past history of diabetes who presents with hypoglycemia. Patient's initial blood sugar was 30 and EMS gave her an amp of D50 which brought up to 80. Patient was groggy at scene but is now alert and oriented. Patient says that she's been taking her insulin regularly but she has not eating at all today. Patient denies having nausea or vomiting or any chest pain or dizziness. Patient does not smoke or drink and patient is retired. - Related Data Home Medications Medication Instructions Recorded Confirmed Last Taken Cetirizine HCl [Zyrtec] 10 mg PO DAILY 11/01/17 05/10/18 Unknown Insulin Glargine,Hum.rec.anlog 33 units SUB-Q QAM 05/10/18 05/10/18 05/10/18 [Toujeo Solostar] Lispro Insulin [Humalog] 0 units SUB-Q TID 05/10/18 05/10/18 Unknown Pregabalin [Lyrica] 150 mg PO QAM 05/10/18 05/10/18 Unknown buPROPion SR [Wellbutrin SR] 150 mg PO BID 05/10/18 05/10/18 05/10/18 Previous Rx's Medication Instructions Recorded Last Taken Type Esomeprazole Magnesium [NexIUM] 40 mg PO QDAY #30 capsule. 11/13/17 05/10/18 Rx Fluticasone/Salmeterol [Advair 1 puff IH BID #1 disk.w.dev 11/13/17 Unknown Rx Diskus 500-50 mcg] Ipratropium/Albuterol Sulfate 1 ampul IH TID #90 ampul.neb 11/13/17 Unknown Rx [DUONEB *Not for PRN Use*] Montelukast [Singulair] 10 mg PO QHS #30 tablet 11/13/17 Unknown Rx amLODIPine [Norvasc] 10 mg PO DAILY #30 tablet 11/13/17 05/10/18 Rx Allergies Allergy/AdvReac Type Severity Reaction Status Date / Time No Known Allergies Allergy Verified 05/16/18 15:25 ED Review of Systems ROS: Stated complaint: LOW BLOOD SUGAR Other details as noted in HPI Constitutional: denies: chills, fever Eyes: denies: eye pain, eye discharge, vision change ENT: denies: ear pain, throat pain Respiratory: denies: cough, shortness of breath, wheezing Cardiovascular: denies: chest pain, palpitations Endocrine: no symptoms reported Gastrointestinal: denies: abdominal pain, nausea, diarrhea Genitourinary: denies: urgency, dysuria, discharge Musculoskeletal: denies: back pain, joint swelling, arthralgia Skin: denies: rash, lesions Neurological: denies: headache, weakness, paresthesias Psychiatric: denies: anxiety, depression Hematological/Lymphatic: denies: easy bleeding, easy bruising ED Past Medical Hx - Past Medical History Hx Hypertension: Yes (1980s) Hx Heart Attack/AMI: No Hx Congestive Heart Failure: No Hx Diabetes: Yes Hx Deep Vein Thrombosis: No Hx Pulmonary Embolism: No Hx GERD: Yes Hx Liver Disease: No Hx Sickle Cell Disease: No Hx Arthritis: Yes (HANDS AND LEFT SHOULDER) Hx Asthma: Yes Hx COPD: Yes Hx Tuberculosis: No Hx HIV: No Additional medical history: HIGH CHOLESTEROL - Surgical History Hx Coronary Stent: No Hx Open Heart Surgery: No Hx Pacemaker: No Hx Internal Defibrillator: No Hx Cholecystectomy: No Hx Appendectomy: No Hx Breast Surgery: No Additional Surgical History: SINUS SURGERY - Social History Smoking Status: Unknown if ever smoked Substance Use Type: None - Medications Home Medications: Home Medications Medication Instructions Recorded Confirmed Last Taken Type Cetirizine HCl [Zyrtec] 10 mg PO DAILY 11/01/17 05/10/18 Unknown History Esomeprazole Magnesium [NexIUM] 40 mg PO QDAY #30 capsule. 11/13/17 05/10/18 05/10/18 Rx Fluticasone/Salmeterol [Advair 1 puff IH BID #1 disk.w.dev 11/13/17 05/10/18 Unknown Rx Diskus 500-50 mcg] Ipratropium/Albuterol Sulfate 1 ampul IH TID #90 ampul.neb 11/13/17 05/10/18 Unknown Rx [DUONEB *Not for PRN Use*] Montelukast [Singulair] 10 mg PO QHS #30 tablet 11/13/17 05/10/18 Unknown Rx amLODIPine [Norvasc] 10 mg PO DAILY #30 tablet 11/13/17 05/10/18 05/10/18 Rx Insulin Glargine,Hum.rec.anlog 33 units SUB-Q QAM 05/10/18 05/10/18 05/10/18 History [Tylermanny Osborn] Lispro Insulin [Humalog] 0 units SUB-Q TID 05/10/18 05/10/18 Unknown History Pregabalin [Lyrica] 150 mg PO QAM 05/10/18 05/10/18 Unknown History buPROPion SR [Wellbutrin SR] 150 mg PO BID 05/10/18 05/10/18 05/10/18 History ED Physical Exam - General General appearance: alert, in no apparent distress - Head Head exam: Present: atraumatic, normocephalic - Eye Eye exam: Present: normal appearance - ENT ENT exam: Present: mucous membranes moist - Neck Neck exam: Present: normal inspection - Respiratory Respiratory exam: Present: normal lung sounds bilaterally. Absent: respiratory distress - Cardiovascular Cardiovascular Exam: Present: regular rate, normal rhythm. Absent: systolic murmur, diastolic murmur, rubs, gallop - GI/Abdominal GI/Abdominal exam: Present: soft, normal bowel sounds - Extremities Exam Extremities exam: Present: normal inspection - Back Exam Back exam: Present: normal inspection - Neurological Exam Neurological exam: Present: alert, oriented X3 - Psychiatric Psychiatric exam: Present: normal affect, normal mood - Skin Skin exam: Present: warm, dry, intact, normal color. Absent: rash ED Course Vital Signs 05/16/18 05/16/18 05/16/18 15:00 15:22 15:30 Temperature 97.6 F Pulse Rate 79 87 81 Respiratory 13 16 13 Rate Blood Pressure 139/59 118/72 139/59 O2 Sat by Pulse 99 99 98 Oximetry 05/16/18 05/16/18 05/16/18 16:00 16:34 17:00 Temperature Pulse Rate 81 90 Respiratory 14 18 Rate Blood Pressure 167/68 167/68 147/69 O2 Sat by Pulse 99 99 96 Oximetry 05/16/18 17:30 Temperature Pulse Rate 84 Respiratory 13 Rate Blood Pressure 159/76 O2 Sat by Pulse 97 Oximetry ED Medical Decision Making - Lab Data Result diagrams: 05/16/18 15:43 05/16/18 15:43 Lab Results 08/26/18 08/26/18 Range/Units 15:43 15:43 WBC 6.6 (4.5-11.0) K/mm3 RBC 4.27 (3.65-5.03) M/mm3 Hgb 12.6 (10.1-14.3) gm/dl Hct 38.7 (30.3-42.9) % MCV 91 (79-97) fl MCH 30 (28-32) pg MCHC 33 (30-34) % RDW 15.2 (13.2-15.2) % Plt Count 328 (140-440) K/mm3 Lymph % (Auto) 7.8 L (13.4-35.0) % Summers % (Auto) 4.7 (0.0-7.3) % Eos % (Auto) 1.9 (0.0-4.3) % Baso % (Auto) 0.5 (0.0-1.8) % Lymph # 0.5 L (1.2-5.4) K/mm3 Summers # 0.3 (0.0-0.8) K/mm3 Eos # 0.1 (0.0-0.4) K/mm3 Baso # 0.0 (0.0-0.1) K/mm3 Seg Neutrophils % 85.1 H (40.0-70.0) % Seg Neutrophils # 5.6 (1.8-7.7) K/mm3 Sodium 135 L (137-145) mmol/L Potassium 4.9 (3.6-5.0) mmol/L Chloride 97.5 L (98-107) mmol/L Carbon Dioxide 24 (22-30) mmol/L Anion Gap 18 mmol/L BUN 27 H (7-17) mg/dL Creatinine 1.1 (0.7-1.2) mg/dL Estimated GFR 58 ml/min BUN/Creatinine Ratio 25 % Glucose 290 H (65-100) mg/dL Calcium 9.0 (8.4-10.2) mg/dL Total Bilirubin 0.40 (0.1-1.2) mg/dL AST 18 (5-40) units/L ALT 13 (7-56) units/L Alkaline Phosphatase 158 H (35-129) units/L Troponin T 0.030 H (0.00-0.029) ng/mL Total Protein 7.2 (6.3-8.2) g/dL Albumin 3.8 L (3.9-5) g/dL Albumin/Globulin Ratio 1.1 % Triglycerides 93 (2-149) mg/dL Cholesterol 162 (50-199) mg/dL LDL Cholesterol Direct 87 (50-130) mg/dL HDL Cholesterol 70 H (40-59) mg/dL Cholesterol/HDL Ratio 2.31 % - EKG Data 05/16/18 18:34 EKG shows normal sinus rhythm no ST segment elevation or T-wave inversion - Medical Decision Making Cdx: Hypoglycemia 2/2 to insulin use Ddx: Electrolyte abnormality, I will give patient food, cbc, cmp, IV fluids Patient has a mildly elevated troponin. .001 this is not Clinically significant and patient can be discharged home. Patient is feeling better additional verbal discharge instructions were given. Critical care attestation.: If time is entered above; I have spent that time in minutes in the direct care of this critically ill patient, excluding procedure time. ED Disposition Clinical Impression: Hypoglycemia Disposition: DC-01 TO HOME OR SELFCARE Is pt being admited?: No Does the pt Need Aspirin: No Condition: Stable Instructions: Diabetic Hypoglycemia (ED) Referrals: PRIMARY CAREMD [Primary Care Provider] - 3-5 Days DASHAWN LUX MD [Staff Physician] - 3-5 Days
[2018-05-16 15:56] LABS: Basophils % (Auto) 0.5 % (0.0-1.8); Eosinophils # (Auto) 0.1 K/mm3 (0.0-0.4); Eosinophils % (Auto) 1.9 % (0.0-4.3); Hematocrit 38.7 % (30.3-42.9); Hemoglobin 12.6 gm/dl (10.1-14.3); Lymphocytes # (Auto) 0.5 K/mm3 (1.2-5.4); Lymphocytes % (Auto) 7.8 % (13.4-35.0); Mean Corpuscular HGB Conc 33 % (30-34); Mean Corpuscular Hemoglobin 30 pg (28-32); Mean Corpuscular Volume 91 fl (79-97); Monocytes # (Auto) 0.3 K/mm3 (0.0-0.8); Monocytes % (Auto) 4.7 % (0.0-7.3); Platelet Count 328 K/mm3 (140-440); Red Blood Count 4.27 M/mm3 (3.65-5.03); Red Cell Distribution Width 15.2 % (13.2-15.2)
[2018-05-16 16:12] LABS: Albumin 3.8 g/dL (3.9-5)
[2018-05-16 16:27] LABS: Chol/HDL Ratio 2.31 %
[2018-05-16 17:35] VITALS: BP 159/76
== END 2018-05-16 18:36 | disposition home or self-care (01) ==
LOC: ED 14:19
DX: E11.649 Type 2 diabetes mellitus with hypoglycemia without coma (principal); I10 Essential (primary) hypertension; K21.9 Gastro-esophageal reflux disease without esophagitis; M19.90 Unspecified osteoarthritis, unspecified site; J45.909 Unspecified asthma, uncomplicated; J44.9 Chronic obstructive pulmonary disease, unspecified; E78.00 Pure hypercholesterolemia, unspecified; Z79.4 Long term (current) use of insulin
CPT/HCPCS: 36415; 80053; 80061; 82962; 84484; 85025; 99284

== ENCOUNTER 2019-02-27 08:39 | Inpatient (IN) | payer MEDICARE ==
[2019-02-27] MEDS ORDERED: ATROVENT IH ONE ×2 (08:55)
[2019-02-27] MEDS ORDERED: PROVENTIL IH ONE ×2 (08:55)
[2019-02-27 09:21] LABS: Hematocrit 36.2 % (30.3-42.9); Hemoglobin 12.2 gm/dl (10.1-14.3); Mean Corpuscular HGB Conc 34 % (30-34); Mean Corpuscular Volume 87 fl (79-97); Platelet Count 315 K/mm3 (140-440); Red Blood Count 4.17 M/mm3 (3.65-5.03); Red Cell Distribution Width 14.2 % (13.2-15.2)
[2019-02-27 09:35] LABS: Calcium 9.9 mg/dL (8.4-10.2)
--- NOTE | 2019-02-27 09:52 | XRay Report ---
PROCEDURE: XR CHEST 1V AP TECHNIQUE: Chest radiograph single view. HISTORY: Chest Pain COMPARISONS: Chest x-ray November 12, 2017 . FINDINGS: Heart: Heart size normal. Mediastinum/Vessels: Trachea midline. Atherosclerotic calcification in aorta. Lungs/Pleural space: Normal. Bony thorax: No acute osseous abnormality. Life support devices: None. IMPRESSION: No acute cardiopulmonary abnormality. This document is electronically signed by Graham Cormier MD., February 27 2019 09:50:55 AM ET
[2019-02-27 10:10] LABS: Basophils % (Manual) 0 % (0.0-1.8); Total Cells Counted 100
[2019-02-27 10:12] LABS: Anisocytosis 1+; Platelet Estimate Consistent w Auto
[2019-02-27] MEDS ORDERED: XOPENEX IH ONE (10:14)
[2019-02-27] MEDS ORDERED: LEVAQUIN 500MG/100ML 500 MG/100 ML BAG IV ONE (10:14)
[2019-02-27] MEDS ORDERED: SOLU-Medrol IV ONE (10:14)
--- NOTE | 2019-02-27 10:21 | Emergency Department Report ---
ED Shortness of Breath HPI - General Chief Complaint: Dyspnea/Respdistress Stated Complaint: SHWETA Time Seen by Provider: 02/27/19 10:08 Source: patient, family Mode of arrival: Ambulatory Limitations: Physical Limitation - History of Present Illness Initial Comments: Ms. Morales is a 70-year-old years old female with history of COPD, hypertension and diabetes. Patient presented to the ER complaining of a two-week history of shortness of breath cough productive with greenish sputum. Patient stated that she talk to her child care director Dr. Dixon and he advised her to use albuterol and prescribe her doxycycline but her symptoms are not improved. In the emergency room patient found to have an oxygen saturation of 89% on room air improved to 96% on 2 L. Patient immediately received albuterol and Atrovent. Patient also received a Solu-Medrol and Levaquin. MD Complaint: shortness of breath, cough -: week(s) Known History Of: COPD Context: recent URI - Related Data Home Medications Medication Instructions Recorded Confirmed Last Taken Cetirizine HCl [Zyrtec] 10 mg PO DAILY 11/01/17 05/10/18 Unknown Insulin Glargine,Hum.rec.anlog 33 units SUB-Q QAM 05/10/18 05/10/18 05/10/18 [Toujeo Solostar] Lispro Insulin [Humalog] 0 units SUB-Q TID 05/10/18 05/10/18 Unknown Pregabalin [Lyrica] 150 mg PO QAM 05/10/18 05/10/18 Unknown buPROPion SR [Wellbutrin SR] 150 mg PO BID 05/10/18 05/10/18 05/10/18 Previous Rx's Medication Instructions Recorded Last Taken Type Esomeprazole Magnesium [NexIUM] 40 mg PO QDAY #30 capsule. 11/13/17 05/10/18 Rx Fluticasone/Salmeterol [Advair 1 puff IH BID #1 disk.w.dev 11/13/17 Unknown Rx Diskus 500-50 mcg] Ipratropium/Albuterol Sulfate 1 ampul IH TID #90 ampul.neb 11/13/17 Unknown Rx [DUONEB *Not for PRN Use*] Montelukast [Singulair] 10 mg PO QHS #30 tablet 11/13/17 Unknown Rx amLODIPine [Norvasc] 10 mg PO DAILY #30 tablet 11/13/17 05/10/18 Rx Allergies Allergy/AdvReac Type Severity Reaction Status Date / Time No Known Allergies Allergy Verified 05/16/18 15:25 ED Review of Systems ROS: Stated complaint: SHWETA Other details as noted in HPI Comment: All other systems reviewed and negative Constitutional: denies: chills, fever Respiratory: cough, shortness of breath, SOB with exertion, SOB at rest, wheezing. denies: orthopnea Cardiovascular: denies: chest pain, palpitations, dyspnea on exertion Gastrointestinal: denies: abdominal pain, nausea, vomiting Musculoskeletal: denies: back pain Neurological: denies: headache, weakness ED Past Medical Hx - Past Medical History Previous Medical History?: Yes Hx Hypertension: Yes (1980s) Hx Heart Attack/AMI: No Hx Congestive Heart Failure: No Hx Diabetes: Yes Hx Deep Vein Thrombosis: No Hx Pulmonary Embolism: No Hx GERD: Yes Hx Liver Disease: No Hx Sickle Cell Disease: No Hx Arthritis: Yes (HANDS AND LEFT SHOULDER) Hx Asthma: Yes Hx COPD: Yes Hx Tuberculosis: No Hx HIV: No Additional medical history: HIGH CHOLESTEROL - Surgical History Past Surgical History?: Yes Hx Coronary Stent: No Hx Open Heart Surgery: No Hx Pacemaker: No Hx Internal Defibrillator: No Hx Cholecystectomy: No Hx Appendectomy: No Hx Breast Surgery: No Additional Surgical History: SINUS SURGERY - Social History Smoking Status: Current Some Day Smoker Substance Use Type: Prescribed - Medications Home Medications: Home Medications Medication Instructions Recorded Confirmed Last Taken Type Cetirizine HCl [Zyrtec] 10 mg PO DAILY 11/01/17 05/10/18 Unknown History Esomeprazole Magnesium [NexIUM] 40 mg PO QDAY #30 capsule. 11/13/17 05/10/18 05/10/18 Rx Fluticasone/Salmeterol [Advair 1 puff IH BID #1 disk.w.dev 11/13/17 05/10/18 Unknown Rx Diskus 500-50 mcg] Ipratropium/Albuterol Sulfate 1 ampul IH TID #90 ampul.neb 11/13/17 05/10/18 Unknown Rx [DUONEB *Not for PRN Use*] Montelukast [Singulair] 10 mg PO QHS #30 tablet 11/13/17 05/10/18 Unknown Rx amLODIPine [Norvasc] 10 mg PO DAILY #30 tablet 11/13/17 05/10/18 05/10/18 Rx Insulin Glargine,Hum.rec.anlog 33 units SUB-Q QAM 05/10/18 05/10/18 05/10/18 History [Toubrian Jimenesostmelina] Lispro Insulin [Humalog] 0 units SUB-Q TID 05/10/18 05/10/18 Unknown History Pregabalin [Lyrica] 150 mg PO QAM 05/10/18 05/10/18 Unknown History buPROPion SR [Wellbutrin SR] 150 mg PO BID 05/10/18 05/10/18 05/10/18 History ED Physical Exam - General Limitations: Physical Limitation General appearance: alert, in distress (moderate respiratory distress) - Head Head exam: Present: atraumatic, normocephalic, normal inspection - Eye Eye exam: Present: normal appearance, PERRL - ENT ENT exam: Present: normal exam, normal orophraynx, mucous membranes moist - Neck Neck exam: Present: normal inspection, full ROM. Absent: tenderness, meningismus, lymphadenopathy, thyromegaly - Respiratory Respiratory exam: Present: respiratory distress, wheezes, rales, rhonchi, pro longed expiratory. Absent: stridor, accessory muscle use, decreased breath sounds - Cardiovascular Cardiovascular Exam: Present: tachycardia, normal heart sounds - GI/Abdominal GI/Abdominal exam: Present: soft, normal bowel sounds. Absent: distended, tenderness, guarding, rebound, rigid, organomegaly, mass, bruit, pulsatile mass, hernia - Extremities Exam Extremities exam: Present: normal inspection, full ROM, normal capillary refill. Absent: calf tenderness - Back Exam Back exam: Present: normal inspection, full ROM. Absent: CVA tenderness (R), CVA tenderness (L), muscle spasm, paraspinal tenderness, vertebral tenderness - Neurological Exam Neurological exam: Present: alert, oriented X3, CN II-XII intact, normal gait - Skin Skin exam: Present: warm, intact, normal color ED Course Vital Signs 02/27/19 02/27/19 02/27/19 08:40 08:50 09:00 Temperature 97.9 F Pulse Rate 102 H 95 H Respiratory 20 28 H 26 H Rate Blood Pressure 192/92 Blood Pressure 177/70 [Right] O2 Sat by Pulse 98 98 99 Oximetry 02/27/19 02/27/19 09:30 10:00 Temperature Pulse Rate 93 H 91 H Respiratory 24 20 Rate Blood Pressure Blood Pressure 179/95 158/69 [Right] O2 Sat by Pulse 100 100 Oximetry ED Medical Decision Making - Lab Data Result diagrams: 02/27/19 09:04 02/27/19 09:04 - EKG Data -: EKG Interpreted by [place] EKG shows normal: sinus rhythm Rate: normal - EKG Data Interpretation: no acute changes - Radiology Data Radiology results: report reviewed Chest x-ray is unremarkable. - Medical Decision Making Ms. Morales is a 70-year-old years old female with history of COPD, hypertension and diabetes. Patient presented to the ER complaining of a two-week history of shortness of breath cough productive with greenish sputum. Patient stated that she talk to her child care director Dr. Dixon and he advised her to use albuterol and prescribe her doxycycline but her symptoms are not improved. In the emergency room patient found to have an oxygen saturation of 89% on room air improved to 96% on 2 L. Patient immediately received albuterol and Atrovent. Patient also received a Solu-Medrol and Levaquin. Labs reviewed that is unremarkable. Chest x-ray is negative for acute finding. I discussed the patient is Dr. Medina, she advised to admit the patient to Dr. Ware. Critical Care Time: Yes Critical care attestation.: If time is entered above; I have spent that time in minutes in the direct care of this critically ill patient, excluding procedure time. ED Disposition Clinical Impression: COPD exacerbation, Acute respiratory failure, Hypoxemia Disposition: OP ADMIT IP TO THIS HOSP Is pt being admited?: Yes Condition: Stable Instructions: Chronic Bronchitis (ED) Referrals: ROSY MARIN MD [Primary Care Provider] - 3-5 Days
--- NOTE | 2019-02-27 12:31 | History and Physical Report ---
History of Present Illness Date of examination: 02/27/19 Date of admission: 02/27/19 10:22 Chief complaint: Shortness of breath, wheezing History of present illness: Patient is 78 yo with COPD, diabetes, hypertension. She presentes with SOB , wheezing and coughing for few days. Shortness of breath occurs at rest, worse on exertion. Also has been having cough with yellow-green sputum for few days. she denies chest pain. She was seen and evaluated in Emergency Department. her Oxygen sat was 89% on room air. She is diagnosed with acute respiratory failure due to COPD exacerbation. She was given solumedrol, supplemental Oxygen. Will admit to Telemetry. PCP: Dr. Keshawn Melgar Past History Past Medical History: COPD, diabetes, hypertension, hyperlipidemia Past Surgical History: Other (sinus surgery) Social history: lives with family, full code, other (Tobacco use). denies: smoking, alcohol abuse Family history: diabetes Medications and Allergies Allergies Allergy/AdvReac Type Severity Reaction Status Date / Time No Known Allergies Allergy Verified 05/16/18 15:25 Home Medications Medication Instructions Recorded Confirmed Last Taken Type Cetirizine HCl [Zyrtec] 10 mg PO DAILY 11/01/17 02/27/19 02/25/19 History Esomeprazole Magnesium [NexIUM] 40 mg PO QDAY #30 capsule. 11/13/17 02/27/19 02/25/19 Rx Montelukast [Singulair] 10 mg PO QHS #30 tablet 11/13/17 02/27/19 02/25/19 Rx amLODIPine [Norvasc] 10 mg PO DAILY #30 tablet 11/13/17 02/27/19 05/10/18 Rx Lispro Insulin [Humalog] See Protocol SUB-Q TID 05/10/18 02/27/19 Unknown History Pregabalin [Lyrica] 75 mg PO TID 05/10/18 02/27/19 02/25/19 History buPROPion SR [Wellbutrin SR] 150 mg PO BID 05/10/18 02/27/19 02/25/19 History Fluticasone/Salmeterol [Advair 50 mcg IH QDAY 02/27/19 02/27/19 02/25/19 History Diskus 500-50 mcg] Furosemide [Lasix] 20 mg PO QDAY 02/27/19 02/27/19 02/25/19 History Glimepiride [Amaryl] 1 mg PO BID 02/27/19 02/27/19 02/25/19 History Ipratropium/Albuterol Sulfate 500 mcg IH QID 02/27/19 02/27/19 Unknown History [DUONEB *Not for PRN Use*] Sodium Bicarbonate 650 mg PO BID 02/27/19 02/27/19 02/25/19 History Review of Systems All systems: negative (No fever, no headache, no abd pain. All other systems reviewed and are negative.) Exam - Physical Exam Narrative exam: Gen: Not in acute distress, lying in bed, HEENT: Normocephalic, atraumatic Neck: supple, no JVD Heart: S1 and S2 reg, no murmurs, rubs or gallop Lungs: Bilateral rhonchi, no crackles, no wheeze Abd: soft, non tender, non distended, normal BS Ext: No edema, no clubbing, no cyanosis, Neuro: Awake,alert, oriented x 3, moves all ext, non focal Psych:Normal mood - Constitutional Vitals: Temp Pulse Resp BP Pulse Ox 97.9 F 91 H 18 163/75 99 02/27/19 08:40 02/27/19 10:30 02/27/19 10:30 02/27/19 10:30 02/27/19 10:30 Results - Labs CBC & Chem 7: 02/28/19 05:53 03/01/19 04:42 Labs: Abnormal lab results 02/27/19 02/27/19 Range/Units 09:04 09:04 Monocytes % (Manual) 13.0 H (0.0-7.3) % Eosinophils % (Manual) 14.0 H (0.0-4.3) % Eosinophils # (Manual) 0.7 H (0.0-0.4) K/mm3 Sodium 126 L (137-145) mmol/L Chloride 87.4 L (98-107) mmol/L BUN 27 H (7-17) mg/dL Glucose 139 H (65-100) mg/dL Assessment and Plan Acute resp failure due to COPD exacerbation Admit to Telemetry supplemental Oxygen COPD exacerbation Duoneb q 6h scheduled solumedrol iv Diabetes mellitus type 2 Fingerstick qac and hs Start Novolin 70/30 Check A1C Hypertension Monitor BP Hyperlipidemia Hyponatremia Na 126 Recheck May consult Nephrology if no improvement Full code status
[2019-02-27] MEDS ORDERED: ZOFRAN IV PRN (12:59)
[2019-02-27] MEDS ORDERED: SODIUM CHLORIDE FLUSH SYRINGE 10 ML IV PRN (12:59)
[2019-02-27] MEDS ORDERED: PROVENTIL IH PRN (12:59)
[2019-02-27] MEDS ORDERED: MORPHINE IV PRN (12:59)
[2019-02-27] MEDS: DUONEB *Not for PRN Use IH SCH ×2 (14:30→21:35)
[2019-02-27] MEDS: ZITHROMAX 500 MG in NACL 0.9% 250ML 250 ML IV SCH (16:35)
[2019-02-27] MEDS ORDERED: D50W (25GM) Syringe IV PRN (17:49)
[2019-02-27] MEDS ORDERED: NON-FORMULARY (Cetirizine Hcl [Zyrtec 10mg Tab] 10 MG) PO SCH (18:00)
[2019-02-27] MEDS ORDERED: NON-FORMULARY (Esomeprazole Magnesium [Nexium] 40 MG) PO SCH (18:00)
[2019-02-27] MEDS: TYLENOL PO PRN (18:57)
[2019-02-27] MEDS: SOLU-Medrol IV SCH (18:58)
[2019-02-27] MEDS: LYRICA PO SCH (19:01)
[2019-02-27] MEDS: BROVANA NEBU IH SCH (21:35)
[2019-02-27] MEDS: PULMICORT IH SCH (21:35)
[2019-02-27] MEDS: HumaLOG SUB-Q SCH (22:55)
[2019-02-27] MEDS: SINGULAIR PO SCH (22:55)
[2019-02-27] MEDS: WELLBUTRIN SR PO SCH (22:55)
[2019-02-27] MEDS: SODIUM CHLORIDE FLUSH SYRINGE 10 ML IV SCH (22:55)
[2019-02-27] MEDS: NORVASC PO SCH (22:55)
[2019-02-28] MEDS: SOLU-Medrol IV SCH ×3 (01:44→19:19)
[2019-02-28] MEDS: DUONEB *Not for PRN Use IH SCH ×4 (02:40→19:39)
[2019-02-28 06:21] LABS: Basophils % (Auto) 0.1 % (0.0-1.8); Hematocrit 33.7 % (30.3-42.9); Hemoglobin 11.3 gm/dl (10.1-14.3); Lymphocytes # (Auto) 0.5 K/mm3 (1.2-5.4); Lymphocytes % (Auto) 9.3 % (13.4-35.0); Mean Corpuscular HGB Conc 34 % (30-34); Mean Corpuscular Volume 87 fl (79-97); Monocytes # (Auto) 0.2 K/mm3 (0.0-0.8); Platelet Count 312 K/mm3 (140-440); Red Blood Count 3.86 M/mm3 (3.65-5.03); Red Cell Distribution Width 14.2 % (13.2-15.2)
[2019-02-28 06:38] LABS: Calcium 9.3 mg/dL (8.4-10.2)
[2019-02-28] MEDS: HumaLOG SUB-Q SCH ×4 (08:21→21:29)
[2019-02-28] MEDS: BROVANA NEBU IH SCH ×2 (08:26→19:39)
[2019-02-28] MEDS: PULMICORT IH SCH ×2 (08:26→19:39)
[2019-02-28] MEDS ORDERED: FLUTICASONE IH SCH (10:00)
[2019-02-28] MEDS ORDERED: SALMETEROL IH SCH (10:00)
[2019-02-28] MEDS: TYLENOL PO PRN (11:08)
[2019-02-28] MEDS: WELLBUTRIN SR PO SCH ×2 (11:10→21:30)
[2019-02-28] MEDS: LOVENOX SUB-Q SCH (11:10)
[2019-02-28] MEDS: NORVASC PO SCH (11:10)
[2019-02-28] MEDS: PROTONIX PO SCH (11:10)
[2019-02-28] MEDS: CLARITIN PO SCH (11:11)
[2019-02-28] MEDS: SODIUM CHLORIDE FLUSH SYRINGE 10 ML IV SCH ×2 (11:11→21:30)
[2019-02-28] MEDS: LYRICA PO SCH ×3 (11:32→21:30)
--- NOTE | 2019-02-28 14:22 | Consultation ---
History of Present Illness Reason for consult: dyspnea, cough, COPD History of present illness: Called to evaluate case of a 70-year-old female, reportedly admitted with shortness of breath, cough associated with history of COPD. Per notes, " presented to the ER complaining of a two-week history of shortness of breath cough productive with greenish sputum. Patient stated that she talk to her files supervisor Dr. Dixon and he advised her to use albuterol and prescribe her doxycycline but her symptoms are not improved. In the emergency room patient found to have an oxygen saturation of 89% on room air improved to 96% on 2 L. Patient immediately received albuterol and Atrovent. Patient also received a Solu-Medrol and Levaquin". At the present time, the patient reports improvement. She still has some wheezi ng and clear expectoration. She denies any fever prior to admission Past History Past Medical History: COPD, diabetes, hypertension, hyperlipidemia Past Surgical History: Other (sinus surgery) Social history: lives with family, full code, other (Tobacco use). denies: smoking, alcohol abuse Family history: diabetes Medications and Allergies Allergies Allergy/AdvReac Type Severity Reaction Status Date / Time No Known Allergies Allergy Verified 05/16/18 15:25 Home Medications Medication Instructions Recorded Confirmed Last Taken Type Cetirizine HCl [Zyrtec] 10 mg PO DAILY 11/01/17 02/27/19 02/25/19 History Esomeprazole Magnesium [NexIUM] 40 mg PO QDAY #30 capsule. 11/13/17 02/27/19 02/25/19 Rx Montelukast [Singulair] 10 mg PO QHS #30 tablet 11/13/17 02/27/19 02/25/19 Rx amLODIPine [Norvasc] 10 mg PO DAILY #30 tablet 11/13/17 02/27/19 05/10/18 Rx Lispro Insulin [Humalog] See Protocol SUB-Q TID 05/10/18 02/27/19 Unknown History Pregabalin [Lyrica] 75 mg PO TID 05/10/18 02/27/19 02/25/19 History buPROPion SR [Wellbutrin SR] 150 mg PO BID 05/10/18 02/27/19 02/25/19 History Fluticasone/Salmeterol [Advair 50 mcg IH QDAY 02/27/19 02/27/19 02/25/19 History Diskus 500-50 mcg] Furosemide [Lasix] 20 mg PO QDAY 02/27/19 02/27/19 02/25/19 History Glimepiride [Amaryl] 1 mg PO BID 02/27/19 02/27/19 02/25/19 History Ipratropium/Albuterol Sulfate 500 mcg IH QID 02/27/19 02/27/19 Unknown History [DUONEB *Not for PRN Use*] Sodium Bicarbonate 650 mg PO BID 02/27/19 02/27/19 02/25/19 History Active Meds: Active Medications Acetaminophen (Tylenol) 650 mg PO Q4H PRN PRN Reason: Pain MILD(1-3)/Fever >100.5/HILARIO Last Admin: 02/28/19 11:08 Dose: 650 mg Documented by: Albuterol (Proventil) 2.5 mg IH Q4H PRN PRN Reason: Shortness Of Breath Albuterol/Ipratropium (Duoneb *Not For Prn Use*) 1 ampul IH Q6HRT [facility] Last Admin: 02/28/19 13:29 Dose: 1 ampul Documented by: Amlodipine Besylate (Norvasc) 10 mg PO DAILY [facility] Last Admin: 02/28/19 11:10 Dose: 10 mg Documented by: Arformoterol Tartrate (Brovana Nebu) 15 mcg IH Q12HRT [facility] Last Admin: 02/28/19 08:26 Dose: 15 mcg Documented by: Budesonide (Pulmicort) 0.5 mg IH Q12HRT [facility] Last Admin: 02/28/19 08:26 Dose: 0.5 mg Documented by: Bupropion HCl (Wellbutrin Sr) 150 mg PO BID [facility] Last Admin: 02/28/19 11:10 Dose: 150 mg Documented by: Dextrose (D50w (25gm) Syringe) 50 ml IV PRN PRN PRN Reason: Hypoglycemia Enoxaparin Sodium (Lovenox) 40 mg SUB-Q DAILY [facility] Last Admin: 02/28/19 11:10 Dose: 40 mg Documented by: Azithromycin 500 mg/ Sodium (Chloride) 250 mls @ 250 mls/hr IV Q24H [facility] Last Admin: 02/27/19 16:35 Dose: 250 mls/hr Documented by: Insulin Human Isoph/Insulin Regular (Humulin 70/30) 10 unit SUB-Q BIDDIAB [facility] Last Admin: 02/28/19 11:12 Dose: 10 unit Documented by: Insulin Human Lispro (Humalog) 0 unit SUB-Q AC [facility]; Protocol Insulin Human Lispro (Humalog) 0 unit SUB-Q QHS [facility]; Protocol Last Admin: 02/27/19 22:55 Dose: 10 unit Documented by: Loratadine (Claritin) 10 mg PO DAILY [facility] Last Admin: 02/28/19 11:11 Dose: 10 mg Documented by: Methylprednisolone Sodium Succinate (Solu-Medrol) 40 mg IV Q8H [facility] Last Admin: 02/28/19 11:32 Dose: 40 mg Documented by: Montelukast Sodium (Singulair) 10 mg PO QHS [facility] Last Admin: 02/27/19 22:55 Dose: 10 mg Documented by: Morphine Sulfate (Morphine) 2 mg IV Q4H PRN PRN Reason: Pain, Moderate (4-6) Ondansetron HCl (Zofran) 4 mg IV Q8H PRN PRN Reason: Nausea And Vomiting Pantoprazole Sodium (Protonix) 40 mg PO DAILY [facility] Last Admin: 02/28/19 11:10 Dose: 40 mg Documented by: Pregabalin (Lyrica) 75 mg PO TID [facility] Last Admin: 02/28/19 11:32 Dose: 75 mg Documented by: Sodium Chloride (Sodium Chloride Flush Syringe 10 Ml) 10 ml IV BID [facility] Last Admin: 02/28/19 11:11 Dose: 10 ml Documented by: Sodium Chloride (Sodium Chloride Flush Syringe 10 Ml) 10 ml IV PRN PRN PRN Reason: LINE FLUSH Review of Systems All systems: negative (some runny nose in the last 2 weeks) Physical Examination Vital signs: Vital Signs Temp Pulse Resp BP Pulse Ox 97.9 F 102 H 20 192/92 98 02/27/19 08:40 02/27/19 08:40 02/27/19 08:40 02/27/19 08:40 02/27/19 08:40 General appearance: no acute distress Eyes: non-icteric ENT: oropharynx moist Neck: supple Ascultation: Bilateral: wheezes Percussion: Bilateral: not dull Cardiovascular: regular rate and rhythm Gastrointestinal: normoactive bowel sounds, non-distended Integumentary: normal Extremities: no cyanosis Musculoskeletal: no deformities normal mental status, non-focal exam mood appropriate, affect normal Results - Laboratory Findings CBC and BMP: 02/28/19 05:53 02/28/19 05:53 Abnormal lab findings: Abnormal Labs 02/27/19 02/27/19 02/27/19 09:04 09:04 17:01 Lymph % (Auto) Lymph # Seg Neutrophils % Monocytes % (Manual) 13.0 H Eosinophils % (Manual) 14.0 H Eosinophils # (Manual) 0.7 H Sodium 126 L Chloride 87.4 L Carbon Dioxide BUN 27 H Creatinine Glucose 139 H POC Glucose 437 H Hemoglobin A1c 02/27/19 02/28/19 02/28/19 20:47 05:53 05:53 Lymph % (Auto) 9.3 L Lymph # 0.5 L Seg Neutrophils % 87.6 H Monocytes % (Manual) Eosinophils % (Manual) Eosinophils # (Manual) Sodium 124 L Chloride 88.9 L Carbon Dioxide 19 L BUN 32 H Creatinine 1.3 H Glucose 315 H POC Glucose 461 H Hemoglobin A1c 02/28/19 02/28/19 05:53 07:32 Lymph % (Auto) Lymph # Seg Neutrophils % Monocytes % (Manual) Eosinophils % (Manual) Eosinophils # (Manual) Sodium Chloride Carbon Dioxide BUN Creatinine Glucose POC Glucose 334 H Hemoglobin A1c 9.4 H - Diagnostic Findings Chest x-ray: report reviewed, image reviewed Assessment and Plan COPD versus asthma exacerbation. Reportedly never smoked diagnosis of wheezing problems asthma at age 50. Being followed by outpatient files supervisor, Dr. Dixon Acute exacerbation of chronic bronchitis Diabetes mellitus Recommendations Albuterol 2.5 milligram nebulizations every 4-6 hours with or without ipra tropium Solu-Medrol 40-60 mg IV every 6-8 hours Monitor blood sugar Complete 5 days empirical antibiotics and discontinue if no fever Monitor QTC if azithromycin and Zofran used together Oxygen support via nasal cannula or mask to maintain oximetry over 92% Continue antibiotics DVT prophylaxis Discussed with patient in detail. All questions answered. Thanks
[2019-02-28] MEDS: ZITHROMAX 500 MG in NACL 0.9% 250ML 250 ML IV SCH (16:20)
[2019-02-28] MEDS: SINGULAIR PO SCH (21:30)
[2019-02-28] MEDS: NACL 0.9% 1000 ML 1,000 ML IV SCH (21:31)
[2019-03-01] MEDS ORDERED: HumuLIN R SUB-Q ONE (00:21)
--- NOTE | 2019-03-01 00:39 | Progress Note ---
Assessment and Plan Assessment and plan: Acute resp failure due to COPD exacerbation Admited to Telemetry Continue supplemental Oxygen Pulm following COPD exacerbation Continue Duoneb q 6h scheduled solumedrol iv Diabetes mellitus type 2,uncontrolled Fingerstick qac and hs Will increase dose of Novolin 70/30 A1C 9.4 Hypertension Monitor BP Hyperlipidemia Hyponatremia Worse. Will consult Nephrology Full code status History Interval history: Feels better Less SOB Hospitalist Physical - Physical exam Narrative exam: Gen: Not in acute distress, lying in bed, HEENT: Normocephalic, atraumatic Neck: supple, no JVD Heart: S1 and S2 reg, no murmurs, rubs or gallop Lungs: Bilateral rhonchi, no crackles, wheeze Abd: soft, non tender, non distended, normal BS Ext: No edema, no clubbing, no cyanosis, Neuro: Awake,alert, oriented x 3, moves all ext, non focal Psych:Normal mood - Constitutional Vitals: Temp Pulse Resp BP Pulse Ox 98.7 F 118 H 18 131/72 98 02/28/19 23:09 03/01/19 00:00 02/28/19 23:09 02/28/19 23:09 02/28/19 23:09 Results - Labs CBC & Chem 7: 02/28/19 05:53 03/01/19 04:42 Labs: Laboratory Last Values WBC 5.3 K/mm3 (4.5-11.0) 02/28/19 05:53 RBC 3.86 M/mm3 (3.65-5.03) 02/28/19 05:53 Hgb 11.3 gm/dl (10.1-14.3) 02/28/19 05:53 Hct 33.7 % (30.3-42.9) 02/28/19 05:53 MCV 87 fl (79-97) 02/28/19 05:53 MCH 29 pg (28-32) 02/28/19 05:53 MCHC 34 % (30-34) 02/28/19 05:53 RDW 14.2 % (13.2-15.2) 02/28/19 05:53 Plt Count 312 K/mm3 (140-440) 02/28/19 05:53 Lymph % (Auto) 9.3 % (13.4-35.0) L 02/28/19 05:53 [place] % (Auto) 3.0 % (0.0-7.3) 02/28/19 05:53 Eos % (Auto) 0.0 % (0.0-4.3) 02/28/19 05:53 Baso % (Auto) 0.1 % (0.0-1.8) 02/28/19 05:53 Lymph # 0.5 K/mm3 (1.2-5.4) L 02/28/19 05:53 [place] # 0.2 K/mm3 (0.0-0.8) 02/28/19 05:53 Eos # 0.0 K/mm3 (0.0-0.4) 02/28/19 05:53 Baso # 0.0 K/mm3 (0.0-0.1) 02/28/19 05:53 Add Manual Diff Complete 02/27/19 09:04 Total Counted 100 02/27/19 09:04 Seg Neutrophils % 87.6 % (40.0-70.0) H 02/28/19 05:53 Seg Neuts % (Manual) 46.0 % (40.0-70.0) 02/27/19 09:04 0 % 02/27/19 09:04 26.0 % (13.4-35.0) 02/27/19 09:04 Reactive Lymphs % (Man) 1.0 % 02/27/19 09:04 13.0 % (0.0-7.3) H 02/27/19 09:04 14.0 % (0.0-4.3) H 02/27/19 09:04 0 % (0.0-1.8) 02/27/19 09:04 0 % 02/27/19 09:04 0 % 02/27/19 09:04 0 % 02/27/19 09:04 0 % 02/27/19 09:04 Nucleated RBC % Not Reportable 02/27/19 09:04 Seg Neutrophils # 4.6 K/mm3 (1.8-7.7) 02/28/19 05:53 Seg Neutrophils # Man 2.3 K/mm3 (1.8-7.7) 02/27/19 09:04 Band Neutrophils # 0.0 K/mm3 02/27/19 09:04 1.3 K/mm3 (1.2-5.4) 02/27/19 09:04 Abs React Lymphs (Man) 0.1 K/mm3 02/27/19 09:04 0.7 K/mm3 (0.0-0.8) 02/27/19 09:04 0.7 K/mm3 (0.0-0.4) H 02/27/19 09:04 0.0 K/mm3 (0.0-0.1) 02/27/19 09:04 0.0 K/mm3 02/27/19 09:04 0.0 K/mm3 02/27/19 09:04 0.0 K/mm3 02/27/19 09:04 Blast Cells # 0.0 K/mm3 02/27/19 09:04 WBC Morphology Not Reportable 02/27/19 09:04 Hypersegmented Neuts Not Reportable 02/27/19 09:04 Hyposegmented Neuts Not Reportable 02/27/19 09:04 Hypogranular Neuts Not Reportable 02/27/19 09:04 Not Reportable 02/27/19 09:04 Not Reportable 02/27/19 09:04 Not Reportable 02/27/19 09:04 Not Reportable 02/27/19 09:04 Not Reportable 02/27/19 09:04 Not Reportable 02/27/19 09:04 Consistent w auto 02/27/19 09:04 Not Reportable 02/27/19 09:04 Plt Clumps, EDTA Not Reportable 02/27/19 09:04 Not Reportable 02/27/19 09:04 Not Reportable 02/27/19 09:04 Not Reportable 02/27/19 09:04 Plt Morphology Comment Not Reportable 02/27/19 09:04 RBC Morphology Not Reportable 02/27/19 09:04 Dimorphic RBCs Not Reportable 02/27/19 09:04 Not Reportable 02/27/19 09:04 Not Reportable 02/27/19 09:04 Not Reportable 02/27/19 09:04 1+ 02/27/19 09:04 Not Reportable 02/27/19 09:04 Not Reportable 02/27/19 09:04 Not Reportable 02/27/19 09:04 Not Reportable 02/27/19 09:04 Not Reportable 02/27/19 09:04 Not Reportable 02/27/19 09:04 Not Reportable 02/27/19 09:04 Not Reportable 02/27/19 09:04 Not Reportable 02/27/19 09:04 Not Reportable 02/27/19 09:04 Not Reportable 02/27/19 09:04 Not Reportable 02/27/19 09:04 Not Reportable 02/27/19 09:04 Not Reportable 02/27/19 09:04 Not Reportable 02/27/19 09:04 Acanthocytes (Spur) Not Reportable 02/27/19 09:04 Rouleaux Not Reportable 02/27/19 09:04 Not Reportable 02/27/19 09:04 Not Reportable 02/27/19 09:04 Not Reportable 02/27/19 09:04 Not Reportable 02/27/19 09:04 Hem Pathologist Commnt No 02/27/19 09:04 Sodium 124 mmol/L (137-145) L 02/28/19 05:53 Potassium 4.6 mmol/L (3.6-5.0) 02/28/19 05:53 Chloride 88.9 mmol/L (98-107) L 02/28/19 05:53 Carbon Dioxide 19 mmol/L (22-30) L 02/28/19 05:53 21 mmol/L 02/28/19 05:53 BUN 32 mg/dL (7-17) H 02/28/19 05:53 1.3 mg/dL (0.7-1.2) H 02/28/19 05:53 Estimated GFR 48 ml/min 02/28/19 05:53 25 % 02/28/19 05:53 Glucose 386 mg/dL (65-100) H 02/28/19 22:44 POC Glucose > 500 (70-105) H 02/28/19 21:19 9.4 % (4-6) H 02/28/19 05:53 Calcium 9.3 mg/dL (8.4-10.2) 02/28/19 05:53 0.011 ng/mL (0.00-0.029) 02/27/19 09:04 Active Medications - Current Medications Current Medications: Generic Name Dose Route Start Last Admin Trade Name Freq PRN Reason Stop Dose Admin Acetaminophen 650 mg 02/27/19 12:59 02/28/19 11:08 Tylenol PO 650 mg Q4H PRN Administration Pain MILD(1-3)/Fever >100.5/HILARIO Albuterol 2.5 mg 02/27/19 12:59 Proventil IH Q4H PRN Shortness Of Breath Albuterol/Ipratropium 1 ampul 02/27/19 14:00 02/28/19 19:39 Duoneb *Not For Prn Use* IH 1 ampul Q6HRT [facility] Administration Amlodipine Besylate 10 mg 02/27/19 20:00 02/28/19 11:10 Norvasc PO 10 mg DAILY [facility] Administration Arformoterol Tartrate 15 mcg 02/27/19 20:00 02/28/19 19:39 Brovana Nebu IH Not Given Q12HRT [facility]PA[facility] Budesonide 0.5 mg 02/27/19 20:00 02/28/19 19:39 Pulmicort IH 0.5 mg Q12HRT [facility] Administration Bupropion HCl 150 mg 02/27/19 22:00 02/28/19 21:30 Wellbutrin Sr PO 150 mg BID [facility] Administration Dextrose 50 ml 02/27/19 17:49 D50w (25gm) Syringe IV PRN PRN Hypoglycemia Enoxaparin Sodium 40 mg 02/28/19 10:00 02/28/19 11:10 Lovenox SUB-Q 40 mg DAILY [facility] Administration Azithromycin 500 mg/ Sodium 250 mls @ 250 mls/hr 02/27/19 15:00 02/28/19 16:20 Chloride IV 250 mls/hr Q24H [facility] Administration Sodium Chloride 1,000 mls @ 75 mls/hr 02/28/19 21:00 02/28/19 21:31 Nacl 0.9% 1000 Ml IV 75 mls/hr DIRECT [facility] Administration Insulin Human Isoph/Insulin Regular 10 unit 02/27/19 19:00 02/28/19 19:00 Humulin 70/30 SUB-Q 10 unit BIDDIAB [facility] Administration Insulin Human Lispro 0 unit 02/28/19 07:30 02/28/19 19:00 Humalog SUB-Q 10 unit AC [facility] Administration Protocol Insulin Human Lispro 0 unit 02/27/19 22:00 02/28/19 21:29 Humalog SUB-Q 10 unit QHS [facility] Administration Protocol Loratadine 10 mg 02/28/19 10:00 02/28/19 11:11 Claritin PO 10 mg DAILY [facility] Administration Methylprednisolone Sodium Succinate 40 mg 02/27/19 18:00 02/28/19 19:19 Solu-Medrol IV 40 mg Q8H [facility] Administration Montelukast Sodium 10 mg 02/27/19 22:00 02/28/19 21:30 Singulair PO 10 mg QHS [facility] Administration Morphine Sulfate 2 mg 02/27/19 12:59 Morphine IV Q4H PRN Pain, Moderate (4-6) Ondansetron HCl 4 mg 02/27/19 12:59 Zofran IV Q8H PRN Nausea And Vomiting Pantoprazole Sodium 40 mg 02/28/19 10:00 02/28/19 11:10 Protonix PO 40 mg DAILY [facility] Administration Pregabalin 75 mg 02/27/19 20:00 02/28/19 21:30 Lyrica PO 75 mg TID [facility] Administration Sodium Chloride 10 ml 02/27/19 22:00 02/28/19 21:30 Sodium Chloride Flush Syringe 10 Ml IV 10 ml BID [facility] Administration Sodium Chloride 10 ml 02/27/19 12:59 Sodium Chloride Flush Syringe 10 Ml IV PRN PRN LINE FLUSH
[2019-03-01] MEDS: SOLU-Medrol IV SCH ×3 (01:20→17:21)
[2019-03-01] MEDS: DUONEB *Not for PRN Use IH SCH ×4 (02:02→19:39)
[2019-03-01 06:41] LABS: Hematocrit 33.2 % (30.3-42.9); Mean Corpuscular HGB Conc 33 % (30-34); Mean Corpuscular Volume 87 fl (79-97); Platelet Count 305 K/mm3 (140-440); Red Cell Distribution Width 14.2 % (13.2-15.2)
[2019-03-01 06:55] LABS: Calcium 8.7 mg/dL (8.4-10.2)
[2019-03-01] MEDS: BROVANA NEBU IH SCH ×2 (08:11→19:39)
[2019-03-01] MEDS: PULMICORT IH SCH ×2 (08:11→19:39)
[2019-03-01] MEDS: HumaLOG SUB-Q SCH ×3 (09:09→18:11)
[2019-03-01] MEDS: CLARITIN PO SCH (09:37)
[2019-03-01] MEDS: LOVENOX SUB-Q SCH (09:37)
[2019-03-01] MEDS: LYRICA PO SCH ×2 (09:37→14:47)
[2019-03-01] MEDS: PROTONIX PO SCH (09:37)
[2019-03-01] MEDS: AMARYL PO SCH ×2 (09:37→16:56)
[2019-03-01] MEDS: NORVASC PO SCH (09:37)
[2019-03-01] MEDS: WELLBUTRIN SR PO SCH (09:38)
[2019-03-01] MEDS: SODIUM CHLORIDE FLUSH SYRINGE 10 ML IV SCH (09:38)
--- NOTE | 2019-03-01 09:41 | Consultation ---
History of Present Illness - History of Present Illness Thank you for the consultation ! Patient was evaluated today My assessment and plan are as follows Renal failure in a patient who is 78-year-old current creatinine holding between 1.31.4 Patient needs further workup for renal failure she does have multiple risk factors for underlying chronic kidney disease At this point will order for urinalysis urine sodium creatinine and uric acid checked for proteinuria urinalysis as well as a renal ultrasonogram dedicated Hyponatremia appears to be multifactorial and complex in etiology in a patient who is being admitted here with COPD was also on diuretic has respiratory failure Diabetes mellitus type 2 very poorly controlled which makes her very high risk for progression of renal failure patient was adequately counseled and educated Diet plan lifestyle changes are also discussed with patient She may benefit from an endocrinology evaluation given the severity of her diabetes as well as uncontrolled hemoglobin A1c Will need follow-up sodium level currently slowly improving Had a detailed discussion with patient about the plan of care from renal standpoint. Patient was [facility] All questions were answered labs and pertinent imaging findings were explained to the patient and simple [place]. Prognosis: Guarded We'll continue to follow and make recommendation from renal standpoint Thank you for the consultation. History of presenting illness; Patient is 78-year-old female who has been admitted here with worsening shortness of breath wheezing, she was also noted to be hypoxic and oxygen saturation was around 89% on room air. He says been going on for possible days possibly 5-7 he has also been having yellowish-green sputum without any evidence of hemoptysis. Patient has been diagnosed with COPD exacerbation and is currently being treated for that in the outpatient setting she is currently being followed by Dr. Keshawn Melgar She does have multiple risk factors for underlying chronic kidney disease including history of diabetes, hypertension, poor diet and lifestyle Patient was also taking furosemide prior to arrival she currently does not use any form of NSAIDs During this admission her sodium upon arrival was 124 with a creatinine of 1.3 her current creatinine is 1.4 with a sodium that has improved to 128 Blood sugar during this admission has been noted between 3-600 with a hemoglobin A1c of 9.4 Patient denies having any history of paraproteinemia, lupus, hepatitis, Currently been diagnosed and treated for respiratory failure COPD exacerbation Past medical history significant for COPD Diabetes Hypertension Hyperlipidemia Current allergies: None Home medication present medication: Reviewed Social history: Patient lives with her family no history of any alcohol drug tobacco abuse Family history positive for diabetes Review of system worsening shortness of breath for last 4-7 days with cough productive of yellowish-green sputum, no history of any dysuria burning frequency or urgency of urination All other review of system negative Physical examination Vitals: Reviewed from this admission Gen.: No acute distress HEENT: Normocephalic/atraumatic skull oral mucosa moist minimal pallor no icterus or uremic order Neck: Supple without any thyromegaly nodular mass or JVD Chest: Bilateral few basilar crackles, prolonged expiratory phase with some wheezing Heart: Regular rate and rhythm S1 and S2 heard no S3-S4 no pericardial rub Abdomen: Soft nontender no guarding rigidity rebound organomegaly no suprapubic masses, no CVA tenderness no renal bruit Back: No CVA tenderness Derm: No petechial rashes dry skin Extremity: Pulses palpable no peripheral cyanosis, 1+ edema dry skin Neurological: Alert awake follows commands Psychiatric: No agitation and aggression Labs and x-rays: Were reviewed from this admission Past History Past Medical History: COPD, diabetes, hypertension, hyperlipidemia Past Surgical History: Other (sinus surgery) Social history: lives with family, full code, other (Tobacco use). denies: smoking, alcohol abuse Family history: diabetes Medications and Allergies Allergies Allergy/AdvReac Type Severity Reaction Status Date / Time No Known Allergies Allergy Verified 05/16/18 15:25 Home Medications Medication Instructions Recorded Confirmed Last Taken Type Cetirizine HCl [Zyrtec] 10 mg PO DAILY 11/01/17 02/27/19 02/25/19 History Esomeprazole Magnesium [NexIUM] 40 mg PO QDAY #30 capsule. 11/13/17 02/27/19 02/25/19 Rx Montelukast [Singulair] 10 mg PO QHS #30 tablet 11/13/17 02/27/19 02/25/19 Rx amLODIPine [Norvasc] 10 mg PO DAILY #30 tablet 11/13/17 02/27/19 05/10/18 Rx Lispro Insulin [Humalog] See Protocol SUB-Q TID 05/10/18 02/27/19 Unknown History Pregabalin [Lyrica] 75 mg PO TID 05/10/18 02/27/19 02/25/19 History buPROPion SR [Wellbutrin SR] 150 mg PO BID 05/10/18 02/27/19 02/25/19 History Fluticasone/Salmeterol [Advair 50 mcg IH QDAY 02/27/19 02/27/19 02/25/19 History Diskus 500-50 mcg] Furosemide [Lasix] 20 mg PO QDAY 02/27/19 02/27/19 02/25/19 History Glimepiride [Amaryl] 1 mg PO BID 02/27/19 02/27/19 02/25/19 History Ipratropium/Albuterol Sulfate 500 mcg IH QID 02/27/19 02/27/19 Unknown History [DUONEB *Not for PRN Use*] Sodium Bicarbonate 650 mg PO BID 02/27/19 02/27/19 02/25/19 History Active Meds: Active Medications Acetaminophen (Tylenol) 650 mg PO Q4H PRN PRN Reason: Pain MILD(1-3)/Fever >100.5/HILARIO Last Admin: 02/28/19 11:08 Dose: 650 mg Documented by: Albuterol (Proventil) 2.5 mg IH Q4H PRN PRN Reason: Shortness Of Breath Albuterol/Ipratropium (Duoneb *Not For Prn Use*) 1 ampul IH Q6HRT [facility] Last Admin: 03/01/19 08:11 Dose: 1 ampul Documented by: Amlodipine Besylate (Norvasc) 10 mg PO DAILY [facility] Last Admin: 03/01/19 09:37 Dose: 10 mg Documented by: Arformoterol Tartrate (Brovana Nebu) 15 mcg IH Q12HRT [facility] Last Admin: 03/01/19 08:11 Dose: 15 mcg Documented by: Budesonide (Pulmicort) 0.5 mg IH Q12HRT [facility] Last Admin: 03/01/19 08:11 Dose: 0.5 mg Documented by: Bupropion HCl (Wellbutrin Sr) 150 mg PO BID [facility] Last Admin: 03/01/19 09:38 Dose: 150 mg Documented by: Dextrose (D50w (25gm) Syringe) 50 ml IV PRN PRN PRN Reason: Hypoglycemia Last Admin: 03/01/19 02:50 Dose: 50 ml Documented by: Enoxaparin Sodium (Lovenox) 40 mg SUB-Q DAILY [facility] Last Admin: 03/01/19 09:37 Dose: 40 mg Documented by: Glimepiride (Amaryl) 1 mg PO BIDDIAB [facility] Last Admin: 03/01/19 09:37 Dose: 1 mg Documented by: Azithromycin 500 mg/ Sodium (Chloride) 250 mls @ 250 mls/hr IV Q24H [facility] Last Admin: 02/28/19 16:20 Dose: 250 mls/hr Documented by: Sodium Chloride (Nacl 0.9% 1000 Ml) 1,000 mls @ 75 mls/hr IV DIRECT [facility] Last Admin: 02/28/19 21:31 Dose: 75 mls/hr Documented by: Insulin Human Isoph/Insulin Regular (Humulin 70/30) 20 unit SUB-Q BIDDIAB [facility] Last Admin: 03/01/19 09:09 Dose: 20 unit Documented by: Insulin Human Lispro (Humalog) 0 unit SUB-Q [facility]; Protocol Last Admin: 03/01/19 09:09 Dose: 6 unit Documented by: [facility]ulin [facility]) [facility] Last Admin: 02/28/19 21:29 Dose: 10 unit Documented by: Loratadine (Claritin) 10 mg PO DAILY [facility] Last Admin: 03/01/19 09:37 Dose: 10 mg Documented by: Methylprednisolone Sodium Succinate (Solu-Medrol) 40 mg IV Q8H [facility] Last Admin: 03/01/19 01:20 Dose: 40 mg Documented by: Montelukast Sodium (Singulair) 10 mg PO QHS [facility] Last Admin: 02/28/19 21:30 Dose: 10 mg Documented by: Morphine Sulfate (Morphine) 2 mg IV Q4H PRN PRN Reason: Pain, Moderate (4-6) Ondansetron HCl (Zofran) 4 mg IV Q8H PRN PRN Reason: Nausea And Vomiting Pantoprazole Sodium (Protonix) 40 mg PO DAILY [facility] Last Admin: 03/01/19 09:37 Dose: 40 mg Documented by: Pregabalin (Lyrica) 75 mg PO TID [facility] Last Admin: 03/01/19 09:37 Dose: 75 mg Documented by: Sodium Chloride (Sodium Chloride Flush Syringe 10 Ml) 10 ml IV BID [facility] Last Admin: 03/01/19 09:38 Dose: 10 ml Documented by: Sodium Chloride (Sodium Chloride Flush Syringe 10 Ml) 10 ml IV PRN PRN PRN Reason: LINE FLUSH Exam - Vital Signs Vital signs: Vital Signs Temp Pulse Resp BP Pulse Ox 97.9 F 102 H 20 192/92 98 02/27/19 08:40 02/27/19 08:40 02/27/19 08:40 02/27/19 08:40 02/27/19 08:40 Results - Lab Results 03/01/19 05:37 03/01/19 05:37 Most recent lab results Calcium 8.7 mg/dL (8.4-10.2) 03/01/19 05:37
[2019-03-01] MEDS ORDERED: NON-FORMULARY (Glimepiride [Amaryl] 1 MG) PO SCH (10:00)
[2019-03-01 10:51] LABS: Bilirubin,Urine NEG (Negative); Blood,Urine NEG (Negative); Color,Urine Straw (Yellow); Protein,Urine <15 mg/dL mg/dL (Negative); Urobilinogen,Urine < 2.0 mg/dL (<2.0)
[2019-03-01 10:55] LABS: Creatinine,Urine 58.4 mg/dL (0.1-20.0)
--- NOTE | 2019-03-01 11:49 | Ultrasound Report ---
ULTRASOUND RENAL BILATERAL HISTORY: Renal failure. TECHNIQUE: transabdominal ultrasound with color Doppler interrogation. COMPARISON: 11/05/17. FINDINGS: The right kidney measures 6.9 x 3.2 x 3.8cm. Right renal cortex: 0.9cm. The left kidney measures 9.5 x 5.3 x 5.9cm. Left renal cortex: 1.6cm. The right kidney is atrophic and echogenic consistent with chronic renal parenchymal disease. Focal 6 mm calcification in the mid right kidney is again noted. No cystic disease, mass or hydronephrosis. The left kidney is normal size, contour and position. There is mildly increased cortical echotexture consistent with nonspecific renal parenchymal disease. No focal left renal lesion or hydronephrosis. IMPRESSION: No change since 11/05/17. Atrophic right kidney. The left kidney is normal size but slightly echogenic consistent with nonspecific renal parenchymal disease.
--- NOTE | 2019-03-01 11:56 | Progress Note ---
Assessment and Plan COPD versus asthma exacerbation. No wheezing now. Appears improved Acute exacerbation of chronic bronchitis Diabetes mellitus Hyponatremia. Being followed by nephrology also Recommendations Continue Albuterol 2.5 milligram nebulizations every 4-6 hours with or without ipratropium Current transition to oral prednisone 30 mg with 5 days taper, if blood sugar is appropriate Monitor blood sugar Out of bed as tolerated Complete 5 days empirical antibiotics and discontinue if no fever Monitor QTC if azithromycin and Zofran used together Oxygen support via nasal cannula or mask to maintain oximetry over 92% DVT prophylaxis Discussed with patient in detail. All questions answered. Subjective Date of service: 03/01/19 Principal diagnosis: COPD Exacerbation Interval history: No events overnight. Just arrived from sonography. Mild shortness of breath this morning feeling fine now Objective Vital Signs - 12hr 03/01/19 03/01/19 03/01/19 00:00 02:02 02:12 Temperature Pulse Rate 118 H Pulse Rate [ 91 H 94 H Bilateral Throughout] Pulse Rate [ Throughout] Respiratory Rate Respiratory 16 17 Rate [Bilateral Throughout] Respiratory Rate [ Throughout] Blood Pressure Blood Pressure [Right] O2 Sat by Pulse Oximetry 03/01/19 03/01/19 03/01/19 04:00 07:18 08:13 Temperature 97.8 F 98.4 F Pulse Rate 88 Pulse Rate [ Bilateral Throughout] Pulse Rate [ Throughout] Respiratory 18 18 Rate Respiratory Rate [Bilateral Throughout] Respiratory Rate [ Throughout] Blood Pressure 139/66 Blood Pressure 112/49 [Right] O2 Sat by Pulse 100 100 Oximetry 03/01/19 03/01/19 08:14 11:00 Temperature Pulse Rate Pulse Rate [ 87 Bilateral Throughout] Pulse Rate [ 85 Throughout] Respiratory 20 Rate Respiratory 20 Rate [Bilateral Throughout] Respiratory 18 Rate [ Throughout] Blood Pressure Blood Pressure [Right] O2 Sat by Pulse 98 Oximetry Constitutional: no acute distress, alert Eyes: non-icteric ENT: oropharynx moist Neck: supple Ascultation: Bilateral: clear, diminished breath sounds Percussion: Bilateral: not dull Cardiovascular: regular rate and rhythm Gastrointestinal: normoactive bowel sounds, non-distended Integumentary: normal Extremities: no cyanosis, no edema Neurologic: normal mental status, non-focal exam Psychiatric: mood appropriate, affect normal CBC and BMP: 03/01/19 05:37 03/01/19 05:37 Abnormal lab findings: Abnormal Labs 02/27/19 02/27/19 02/27/19 09:04 09:04 17:01 Lymph % (Auto) Lymph # Seg Neutrophils % Monocytes % (Manual) 13.0 H Eosinophils % (Manual) 14.0 H Eosinophils # (Manual) 0.7 H Sodium 126 L Chloride 87.4 L Carbon Dioxide BUN 27 H Creatinine Glucose 139 H POC Glucose 437 H Hemoglobin A1c Urine Creatinine Urine Total Protein 02/27/19 02/28/19 02/28/19 20:47 05:53 05:53 Lymph % (Auto) 9.3 L Lymph # 0.5 L Seg Neutrophils % 87.6 H Monocytes % (Manual) Eosinophils % (Manual) Eosinophils # (Manual) Sodium 124 L Chloride 88.9 L Carbon Dioxide 19 L BUN 32 H Creatinine 1.3 H Glucose 315 H POC Glucose 461 H Hemoglobin A1c Urine Creatinine Urine Total Protein 02/28/19 02/28/19 02/28/19 05:53 07:32 17:00 Lymph % (Auto) Lymph # Seg Neutrophils % Monocytes % (Manual) Eosinophils % (Manual) Eosinophils # (Manual) Sodium Chloride Carbon Dioxide BUN Creatinine Glucose POC Glucose 334 H > 500 H Hemoglobin A1c 9.4 H Urine Creatinine Urine Total Protein 02/28/19 02/28/19 02/28/19 19:08 21:19 22:44 Lymph % (Auto) Lymph # Seg Neutrophils % Monocytes % (Manual) Eosinophils % (Manual) Eosinophils # (Manual) Sodium Chloride Carbon Dioxide BUN Creatinine Glucose 663 H* 386 H POC Glucose > 500 H Hemoglobin A1c Urine Creatinine Urine Total Protein 02/28/19 03/01/19 03/01/19 23:21 02:41 03:55 Lymph % (Auto) Lymph # Seg Neutrophils % Monocytes % (Manual) Eosinophils % (Manual) Eosinophils # (Manual) Sodium Chloride Carbon Dioxide BUN Creatinine Glucose POC Glucose 269 H < 40 L 158 H Hemoglobin A1c Urine Creatinine Urine Total Protein 03/01/19 03/01/19 03/01/19 04:42 05:37 07:22 Lymph % (Auto) Lymph # Seg Neutrophils % Monocytes % (Manual) Eosinophils % (Manual) Eosinophils # (Manual) Sodium 128 L Chloride 95.2 L Carbon Dioxide 21 L BUN 36 H Creatinine 1.4 H Glucose 219 H 219 H POC Glucose 271 H Hemoglobin A1c Urine Creatinine Urine Total Protein 03/01/19 Unknown Lymph % (Auto) Lymph # Seg Neutrophils % Monocytes % (Manual) Eosinophils % (Manual) Eosinophils # (Manual) Sodium Chloride Carbon Dioxide BUN Creatinine Glucose POC Glucose Hemoglobin A1c Urine Creatinine 58.4 H Urine Total Protein 16 H
[2019-03-01] MEDS: NACL 0.9% 1000 ML 1,000 ML IV SCH (12:43)
--- NOTE | 2019-03-01 12:52 | Progress Note ---
Assessment and Plan Assessment and plan: Acute resp failure due to COPD exacerbation Continue Pulmicort and Brovana Continue supplemental Oxygen Pulm following COPD exacerbation Continue Duoneb q 6h scheduled solumedrol iv Diabetes mellitus type 2,uncontrolled Fingerstick qac and hs Continue 70/30 insulin twice a day A1C 9.4 Hypertension Monitor BP Hyperlipidemia Hyponatremia Improved. Nephrology following History Interval history: No new issues overnight. Hospitalist Physical - Constitutional Vitals: Temp Pulse Resp BP Pulse Ox 97.6 F 87 20 151/69 98 03/01/19 11:36 03/01/19 08:14 03/01/19 11:36 03/01/19 11:36 03/01/19 11:00 General appearance: Present: no acute distress, well-nourished - EENT Eyes: Present: PERRL, EOM intact ENT: hearing intact, clear oral mucosa, dentition normal - Neck Neck: Present: supple, normal ROM - Respiratory Respiratory effort: normal Respiratory: bilateral: CTA - Cardiovascular Rhythm: regular Heart Sounds: Present: S1 & S2. Absent: gallop, rub - Extremities Extremities: no ischemia, No edema, Full ROM - Abdominal General gastrointestinal: soft, non-tender, non-distended, normal bowel sounds - Integumentary Integumentary: Present: clear, warm, dry - Neurologic Neurologic: CNII-XII intact, moves all extremities Results - Labs CBC & Chem 7: 03/01/19 05:37 03/01/19 05:37 Labs: Laboratory Last Values WBC 8.4 K/mm3 (4.5-11.0) 03/01/19 05:37 RBC 3.80 M/mm3 (3.65-5.03) 03/01/19 05:37 Hgb 11.0 gm/dl (10.1-14.3) 03/01/19 05:37 Hct 33.2 % (30.3-42.9) 03/01/19 05:37 MCV 87 fl (79-97) 03/01/19 05:37 MCH 29 pg (28-32) 03/01/19 05:37 MCHC 33 % (30-34) 03/01/19 05:37 RDW 14.2 % (13.2-15.2) 03/01/19 05:37 Plt Count 305 K/mm3 (140-440) 03/01/19 05:37 Lymph % (Auto) 9.3 % (13.4-35.0) L 02/28/19 05:53 [place] % (Auto) 3.0 % (0.0-7.3) 02/28/19 05:53 Eos % (Auto) 0.0 % (0.0-4.3) 02/28/19 05:53 Baso % (Auto) 0.1 % (0.0-1.8) 02/28/19 05:53 Lymph # 0.5 K/mm3 (1.2-5.4) L 02/28/19 05:53 [place] # 0.2 K/mm3 (0.0-0.8) 02/28/19 05:53 Eos # 0.0 K/mm3 (0.0-0.4) 02/28/19 05:53 Baso # 0.0 K/mm3 (0.0-0.1) 02/28/19 05:53 Add Manual Diff Complete 02/27/19 09:04 Total Counted 100 02/27/19 09:04 Seg Neutrophils % 87.6 % (40.0-70.0) H 02/28/19 05:53 Seg Neuts % (Manual) 46.0 % (40.0-70.0) 02/27/19 09:04 0 % 02/27/19 09:04 26.0 % (13.4-35.0) 02/27/19 09:04 Reactive Lymphs % (Man) 1.0 % 02/27/19 09:04 13.0 % (0.0-7.3) H 02/27/19 09:04 14.0 % (0.0-4.3) H 02/27/19 09:04 0 % (0.0-1.8) 02/27/19 09:04 0 % 02/27/19 09:04 0 % 02/27/19 09:04 0 % 02/27/19 09:04 0 % 02/27/19 09:04 Nucleated RBC % Not Reportable 02/27/19 09:04 Seg Neutrophils # 4.6 K/mm3 (1.8-7.7) 02/28/19 05:53 Seg Neutrophils # Man 2.3 K/mm3 (1.8-7.7) 02/27/19 09:04 Band Neutrophils # 0.0 K/mm3 02/27/19 09:04 1.3 K/mm3 (1.2-5.4) 02/27/19 09:04 Abs React Lymphs (Man) 0.1 K/mm3 02/27/19 09:04 0.7 K/mm3 (0.0-0.8) 02/27/19 09:04 0.7 K/mm3 (0.0-0.4) H 02/27/19 09:04 0.0 K/mm3 (0.0-0.1) 02/27/19 09:04 0.0 K/mm3 02/27/19 09:04 0.0 K/mm3 02/27/19 09:04 0.0 K/mm3 02/27/19 09:04 Blast Cells # 0.0 K/mm3 02/27/19 09:04 WBC Morphology Not Reportable 02/27/19 09:04 Hypersegmented Neuts Not Reportable 02/27/19 09:04 Hyposegmented Neuts Not Reportable 02/27/19 09:04 Hypogranular Neuts Not Reportable 02/27/19 09:04 Not Reportable 02/27/19 09:04 Not Reportable 02/27/19 09:04 Not Reportable 02/27/19 09:04 Not Reportable 02/27/19 09:04 Not Reportable 02/27/19 09:04 Not Reportable 02/27/19 09:04 Consistent w auto 02/27/19 09:04 Not Reportable 02/27/19 09:04 Plt Clumps, EDTA Not Reportable 02/27/19 09:04 Not Reportable 02/27/19 09:04 Not Reportable 02/27/19 09:04 Not Reportable 02/27/19 09:04 Plt Morphology Comment Not Reportable 02/27/19 09:04 RBC Morphology Not Reportable 02/27/19 09:04 Dimorphic RBCs Not Reportable 02/27/19 09:04 Not Reportable 02/27/19 09:04 Not Reportable 02/27/19 09:04 Not Reportable 02/27/19 09:04 1+ 02/27/19 09:04 Not Reportable 02/27/19 09:04 Not Reportable 02/27/19 09:04 Not Reportable 02/27/19 09:04 Not Reportable 02/27/19 09:04 Not Reportable 02/27/19 09:04 Not Reportable 02/27/19 09:04 Not Reportable 02/27/19 09:04 Not Reportable 02/27/19 09:04 Not Reportable 02/27/19 09:04 Not Reportable 02/27/19 09:04 Not Reportable 02/27/19 09:04 Not Reportable 02/27/19 09:04 Not Reportable 02/27/19 09:04 Not Reportable 02/27/19 09:04 Not Reportable 02/27/19 09:04 Acanthocytes (Spur) Not Reportable 02/27/19 09:04 Rouleaux Not Reportable 02/27/19 09:04 Not Reportable 02/27/19 09:04 Not Reportable 02/27/19 09:04 Not Reportable 02/27/19 09:04 Not Reportable 02/27/19 09:04 Hem Pathologist Commnt No 02/27/19 09:04 Sodium 128 mmol/L (137-145) L 03/01/19 05:37 Potassium 4.9 mmol/L (3.6-5.0) 03/01/19 05:37 Chloride 95.2 mmol/L (98-107) L 03/01/19 05:37 Carbon Dioxide 21 mmol/L (22-30) L 03/01/19 05:37 17 mmol/L 03/01/19 05:37 BUN 36 mg/dL (7-17) H 03/01/19 05:37 1.4 mg/dL (0.7-1.2) H 03/01/19 05:37 Estimated GFR 44 ml/min 03/01/19 05:37 26 % 03/01/19 05:37 Glucose 219 mg/dL (65-100) H 03/01/19 05:37 POC Glucose 398 (70-105) H 03/01/19 11:40 9.4 % (4-6) H 02/28/19 05:53 286 Mosm/kg 03/01/19 06:12 Calcium 8.7 mg/dL (8.4-10.2) 03/01/19 05:37 0.011 ng/mL (0.00-0.029) 02/27/19 09:04 Straw (Yellow) 03/01/19 10:15 Turbid (Clear) 03/01/19 10:15 6.0 (5.0-7.0) 03/01/19 10:15 Ur Specific [place] 1.012 (1.003-1.030) 03/01/19 10:15 <15 mg/dl mg/dL (Negative) 03/01/19 10:15 >=500 mg/dL (Negative) 03/01/19 10:15 Neg mg/dL (Negative) 03/01/19 10:15 Neg (Negative) 03/01/19 10:15 Neg (Negative) 03/01/19 10:15 Neg (Negative) 03/01/19 10:15 < 2.0 mg/dL (<2.0) 03/01/19 10:15 Ur Leukocyte Esterase Neg (Negative) 03/01/19 10:15 1.0 /HPF (0.0-6.0) 03/01/19 10:15 2.0 /HPF (0.0-6.0) 03/01/19 10:15 U Epithel Cells (Auto) 1.0 /HPF (0-13.0) 03/01/19 10:15 58.4 mg/dL (0.1-20.0) H 03/01/19 Unknown 16 mg/dL (5-11.8) H 03/01/19 Unknown Active Medications - Current Medications Current Medications: Generic Name Dose Route Start Last Admin Trade Name Freq PRN Reason Stop Dose Admin Acetaminophen 650 mg 02/27/19 12:59 02/28/19 11:08 Tylenol PO 650 mg Q4H PRN Administration Pain MILD(1-3)/Fever >100.5/HILARIO Albuterol 2.5 mg 02/27/19 12:59 Proventil IH Q4H PRN Shortness Of Breath Albuterol/Ipratropium 1 ampul 02/27/19 14:00 03/01/19 08:11 Duoneb *Not For Prn Use* IH 1 ampul Q6HRT JEAN-PAUL Administration Amlodipine Besylate 10 mg 02/27/19 20:00 03/01/19 09:37 Norvasc PO 10 mg DAILY JEAN-PAUL Administration Arformoterol Tartrate 15 mcg 02/27/19 20:00 03/01/19 08:11 Brovana Nebu IH 15 mcg Q12HRT JEAN-PAUL Administration Budesonide 0.5 mg 02/27/19 20:00 03/01/19 08:11 Pulmicort IH 0.5 mg Q12HRT JEAN-PAUL Administration Bupropion HCl 150 mg 02/27/19 22:00 03/01/19 09:38 Wellbutrin Sr PO 150 mg BID JEAN-PAUL Administration Dextrose 50 ml 02/27/19 17:49 03/01/19 02:50 D50w (25gm) Syringe IV 50 ml PRN PRN Administration Hypoglycemia Enoxaparin Sodium 40 mg 02/28/19 10:00 03/01/19 09:37 Lovenox SUB-Q 40 mg DAILY JEAN-PAUL Administration Glimepiride 1 mg 03/01/19 08:00 03/01/19 09:37 Amaryl PO 1 mg BIDDIAB JEAN-PAUL Administration Azithromycin 500 mg/ Sodium 250 mls @ 250 mls/hr 02/27/19 15:00 02/28/19 16:20 Chloride IV 250 mls/hr Q24H JEAN-PAUL Administration Sodium Chloride 1,000 mls @ 75 mls/hr 02/28/19 21:00 03/01/19 12:43 Nacl 0.9% 1000 Ml IV 75 mls/hr DIRECT JEAN-PAUL Administration Insulin Human Isoph/Insulin Regular 20 unit 03/01/19 08:00 03/01/19 09:09 Humulin 70/30 SUB-Q 20 unit BIDDIAB JEAN-PAUL Administration Insulin Human Lispro 0 unit 02/28/19 07:30 03/01/19 09:09 Humalog SUB-Q 6 unit AC JEAN-PAUL Administration Protocol Insulin Human Lispro 0 unit 02/27/19 22:00 02/28/19 21:29 Humalog SUB-Q 10 unit QHS JEAN-PAUL Administration Protocol Loratadine 10 mg 02/28/19 10:00 03/01/19 09:37 Claritin PO 10 mg DAILY JEAN-PAUL Administration Methylprednisolone Sodium Succinate 40 mg 02/27/19 18:00 03/01/19 10:06 Solu-Medrol IV 40 mg Q8H JEAN-PAUL Administration Montelukast Sodium 10 mg 02/27/19 22:00 02/28/19 21:30 Singulair PO 10 mg QHS JEAN-PAUL Administration Morphine Sulfate 2 mg 02/27/19 12:59 Morphine IV Q4H PRN Pain, Moderate (4-6) Ondansetron HCl 4 mg 02/27/19 12:59 Zofran IV Q8H PRN Nausea And Vomiting Pantoprazole Sodium 40 mg 02/28/19 10:00 03/01/19 09:37 Protonix PO 40 mg DAILY JEAN-PAUL Administration Pregabalin 75 mg 02/27/19 20:00 03/01/19 09:37 Lyrica PO 75 mg TID JEAN-PAUL Administration Sodium Chloride 10 ml 02/27/19 22:00 03/01/19 09:38 Sodium Chloride Flush Syringe 10 Ml IV 10 ml BID JEAN-PAUL Administration Sodium Chloride 10 ml 02/27/19 12:59 Sodium Chloride Flush Syringe 10 Ml IV PRN PRN LINE FLUSH
[2019-03-01] MEDS: ZITHROMAX 500 MG in NACL 0.9% 250ML 250 ML IV SCH (16:55)
[2019-03-02] MEDS: HumaLOG SUB-Q SCH ×5 (01:00→21:41)
[2019-03-02] MEDS: WELLBUTRIN SR PO SCH ×3 (01:00→21:40)
[2019-03-02] MEDS: SINGULAIR PO SCH ×2 (01:00→21:40)
[2019-03-02] MEDS: SODIUM CHLORIDE FLUSH SYRINGE 10 ML IV SCH ×3 (01:00→21:40)
[2019-03-02] MEDS: LYRICA PO SCH ×4 (01:00→21:40)
[2019-03-02] MEDS: DUONEB *Not for PRN Use IH SCH ×4 (01:35→20:53)
[2019-03-02] MEDS: SOLU-Medrol IV SCH ×3 (03:00→17:31)
[2019-03-02] MEDS: PULMICORT IH SCH ×2 (08:39→20:53)
[2019-03-02] MEDS: BROVANA NEBU IH SCH ×2 (08:39→20:53)
--- NOTE | 2019-03-02 09:06 | Progress Note ---
Assessment and Plan Assessment and plan: Acute resp failure due to COPD exacerbation Continue Pulmicort and Brovana Continue supplemental Oxygen Pulm following COPD exacerbation Continue Duoneb q 6h scheduled solumedrol iv Diabetes mellitus type 2,uncontrolled Fingerstick qac and hs Continue 70/30 insulin twice a day A1C 9.4 Hypertension Monitor BP Hyperlipidemia Hyponatremia Improved. Nephrology following History Interval history: No new issues overnight. Hospitalist Physical - Constitutional Vitals: Temp Pulse Resp BP Pulse Ox 97.5 F L 98 H 18 123/67 98 03/02/19 08:03 03/02/19 08:35 03/02/19 08:35 03/02/19 08:03 03/02/19 08:35 General appearance: Present: no acute distress, well-nourished - EENT Eyes: Present: PERRL, EOM intact ENT: hearing intact, clear oral mucosa, dentition normal - Neck Neck: Present: supple, normal ROM - Respiratory Respiratory effort: normal Respiratory: bilateral: CTA - Cardiovascular Rhythm: regular Heart Sounds: Present: S1 & S2. Absent: gallop, rub - Extremities Extremities: no ischemia, No edema, Full ROM - Abdominal General gastrointestinal: soft, non-tender, non-distended, normal bowel sounds - Integumentary Integumentary: Present: clear, warm, dry - Neurologic Neurologic: CNII-XII intact, moves all extremities Results - Labs CBC & Chem 7: 03/01/19 05:37 03/01/19 05:37 Labs: Laboratory Last Values WBC 8.4 K/mm3 (4.5-11.0) 03/01/19 05:37 RBC 3.80 M/mm3 (3.65-5.03) 03/01/19 05:37 Hgb 11.0 gm/dl (10.1-14.3) 03/01/19 05:37 Hct 33.2 % (30.3-42.9) 03/01/19 05:37 MCV 87 fl (79-97) 03/01/19 05:37 MCH 29 pg (28-32) 03/01/19 05:37 MCHC 33 % (30-34) 03/01/19 05:37 RDW 14.2 % (13.2-15.2) 03/01/19 05:37 Plt Count 305 K/mm3 (140-440) 03/01/19 05:37 Lymph % (Auto) 9.3 % (13.4-35.0) L 02/28/19 05:53 [place] % (Auto) 3.0 % (0.0-7.3) 02/28/19 05:53 Eos % (Auto) 0.0 % (0.0-4.3) 02/28/19 05:53 Baso % (Auto) 0.1 % (0.0-1.8) 02/28/19 05:53 Lymph # 0.5 K/mm3 (1.2-5.4) L 02/28/19 05:53 [place] # 0.2 K/mm3 (0.0-0.8) 02/28/19 05:53 Eos # 0.0 K/mm3 (0.0-0.4) 02/28/19 05:53 Baso # 0.0 K/mm3 (0.0-0.1) 02/28/19 05:53 Add Manual Diff Complete 02/27/19 09:04 Total Counted 100 02/27/19 09:04 Seg Neutrophils % 87.6 % (40.0-70.0) H 02/28/19 05:53 Seg Neuts % (Manual) 46.0 % (40.0-70.0) 02/27/19 09:04 0 % 02/27/19 09:04 26.0 % (13.4-35.0) 02/27/19 09:04 Reactive Lymphs % (Man) 1.0 % 02/27/19 09:04 13.0 % (0.0-7.3) H 02/27/19 09:04 14.0 % (0.0-4.3) H 02/27/19 09:04 0 % (0.0-1.8) 02/27/19 09:04 0 % 02/27/19 09:04 0 % 02/27/19 09:04 0 % 02/27/19 09:04 0 % 02/27/19 09:04 Nucleated RBC % Not Reportable 02/27/19 09:04 Seg Neutrophils # 4.6 K/mm3 (1.8-7.7) 02/28/19 05:53 Seg Neutrophils # Man 2.3 K/mm3 (1.8-7.7) 02/27/19 09:04 Band Neutrophils # 0.0 K/mm3 02/27/19 09:04 1.3 K/mm3 (1.2-5.4) 02/27/19 09:04 Abs React Lymphs (Man) 0.1 K/mm3 02/27/19 09:04 0.7 K/mm3 (0.0-0.8) 02/27/19 09:04 0.7 K/mm3 (0.0-0.4) H 02/27/19 09:04 0.0 K/mm3 (0.0-0.1) 02/27/19 09:04 0.0 K/mm3 02/27/19 09:04 0.0 K/mm3 02/27/19 09:04 0.0 K/mm3 02/27/19 09:04 Blast Cells # 0.0 K/mm3 02/27/19 09:04 WBC Morphology Not Reportable 02/27/19 09:04 Hypersegmented Neuts Not Reportable 02/27/19 09:04 Hyposegmented Neuts Not Reportable 02/27/19 09:04 Hypogranular Neuts Not Reportable 02/27/19 09:04 Not Reportable 02/27/19 09:04 Not Reportable 02/27/19 09:04 Not Reportable 02/27/19 09:04 Not Reportable 02/27/19 09:04 Not Reportable 02/27/19 09:04 Not Reportable 02/27/19 09:04 Consistent w auto 02/27/19 09:04 Not Reportable 02/27/19 09:04 Plt Clumps, EDTA Not Reportable 02/27/19 09:04 Not Reportable 02/27/19 09:04 Not Reportable 02/27/19 09:04 Not Reportable 02/27/19 09:04 Plt Morphology Comment Not Reportable 02/27/19 09:04 RBC Morphology Not Reportable 02/27/19 09:04 Dimorphic RBCs Not Reportable 02/27/19 09:04 Not Reportable 02/27/19 09:04 Not Reportable 02/27/19 09:04 Not Reportable 02/27/19 09:04 1+ 02/27/19 09:04 Not Reportable 02/27/19 09:04 Not Reportable 02/27/19 09:04 Not Reportable 02/27/19 09:04 Not Reportable 02/27/19 09:04 Not Reportable 02/27/19 09:04 Not Reportable 02/27/19 09:04 Not Reportable 02/27/19 09:04 Not Reportable 02/27/19 09:04 Not Reportable 02/27/19 09:04 Not Reportable 02/27/19 09:04 Not Reportable 02/27/19 09:04 Not Reportable 02/27/19 09:04 Not Reportable 02/27/19 09:04 Not Reportable 02/27/19 09:04 Not Reportable 02/27/19 09:04 Acanthocytes (Spur) Not Reportable 02/27/19 09:04 Rouleaux Not Reportable 02/27/19 09:04 Not Reportable 02/27/19 09:04 Not Reportable 02/27/19 09:04 Not Reportable 02/27/19 09:04 Not Reportable 02/27/19 09:04 Hem Pathologist Commnt No 02/27/19 09:04 Sodium 128 mmol/L (137-145) L 03/01/19 05:37 Potassium 4.9 mmol/L (3.6-5.0) 03/01/19 05:37 Chloride 95.2 mmol/L (98-107) L 03/01/19 05:37 Carbon Dioxide 21 mmol/L (22-30) L 03/01/19 05:37 17 mmol/L 03/01/19 05:37 BUN 36 mg/dL (7-17) H 03/01/19 05:37 1.4 mg/dL (0.7-1.2) H 03/01/19 05:37 Estimated GFR 44 ml/min 03/01/19 05:37 26 % 03/01/19 05:37 Glucose 219 mg/dL (65-100) H 03/01/19 05:37 POC Glucose 68 (70-105) L 03/02/19 07:30 9.4 % (4-6) H 02/28/19 05:53 286 Mosm/kg 03/01/19 06:12 5.5 mg/dL (3.5-7.6) 03/01/19 Unknown Calcium 8.7 mg/dL (8.4-10.2) 03/01/19 05:37 0.011 ng/mL (0.00-0.029) 02/27/19 09:04 TSH 0.266 mlU/mL (0.270-4.200) L 03/01/19 Unknown Free T4 1.23 ng/dL (0.76-1.46) 03/01/19 Unknown Straw (Yellow) 03/01/19 10:15 Turbid (Clear) 03/01/19 10:15 6.0 (5.0-7.0) 03/01/19 10:15 Ur Specific [place] 1.012 (1.003-1.030) 03/01/19 10:15 <15 mg/dl mg/dL (Negative) 03/01/19 10:15 >=500 mg/dL (Negative) 03/01/19 10:15 Neg mg/dL (Negative) 03/01/19 10:15 Neg (Negative) 03/01/19 10:15 Neg (Negative) 03/01/19 10:15 Neg (Negative) 03/01/19 10:15 < 2.0 mg/dL (<2.0) 03/01/19 10:15 Ur Leukocyte Esterase Neg (Negative) 03/01/19 10:15 1.0 /HPF (0.0-6.0) 03/01/19 10:15 2.0 /HPF (0.0-6.0) 03/01/19 10:15 U Epithel Cells (Auto) 1.0 /HPF (0-13.0) 03/01/19 10:15 416 Mosm/kg 03/01/19 Unknown 58.4 mg/dL (0.1-20.0) H 03/01/19 Unknown 23 mmol/L 03/01/19 Unknown 26.31 mmol/L 03/01/19 Unknown 16.0 mmolL (110-250) L 03/01/19 Unknown 16 mg/dL (5-11.8) H 03/01/19 Unknown Active Medications - Current Medications Current Medications: Generic Name Dose Route Start Last Admin Trade Name Freq PRN Reason Stop Dose Admin Acetaminophen 650 mg 02/27/19 12:59 02/28/19 11:08 Tylenol PO 650 mg Q4H PRN Administration Pain MILD(1-3)/Fever >100.5/HILARIO Albuterol 2.5 mg 02/27/19 12:59 Proventil IH Q4H PRN Shortness Of Breath Albuterol/Ipratropium 1 ampul 02/27/19 14:00 03/02/19 08:39 Duoneb *Not For Prn Use* IH Not Given Q6HRT JEAN-PAUL Amlodipine Besylate 10 mg 02/27/19 20:00 03/01/19 09:37 Norvasc PO 10 mg DAILY JEAN-PAUL Administration Arformoterol Tartrate 15 mcg 02/27/19 20:00 03/02/19 08:39 Brovana Nebu IH 15 mcg Q12HRT JEAN-PAUL Administration Budesonide 0.5 mg 02/27/19 20:00 03/02/19 08:39 Pulmicort IH 0.5 mg Q12HRT JEAN-PAUL Administration Bupropion HCl 150 mg 02/27/19 22:00 03/02/19 01:00 Wellbutrin Sr PO Not Given BID JEAN-PAUL Dextrose 50 ml 02/27/19 17:49 03/01/19 02:50 D50w (25gm) Syringe IV 50 ml PRN PRN Administration Hypoglycemia Enoxaparin Sodium 40 mg 02/28/19 10:00 03/01/19 09:37 Lovenox SUB-Q 40 mg DAILY JEAN-PAUL Administration Glimepiride 1 mg 03/01/19 08:00 03/01/19 16:56 Amaryl PO 1 mg BIDDIAB JEAN-PAUL Administration Azithromycin 500 mg/ Sodium 250 mls @ 250 mls/hr 02/27/19 15:00 03/01/19 16:55 Chloride IV 250 mls/hr Q24H JEAN-PAUL Administration Sodium Chloride 1,000 mls @ 75 mls/hr 02/28/19 21:00 03/01/19 12:43 Nacl 0.9% 1000 Ml IV 75 mls/hr DIRECT JEAN-PAUL Administration Insulin Human Isoph/Insulin Regular 20 unit 03/01/19 08:00 03/01/19 18:10 Humulin 70/30 SUB-Q 20 unit BIDDIAB JEAN-PAUL Administration Insulin Human Lispro 0 unit 02/28/19 07:30 03/01/19 18:11 Humalog SUB-Q 4 unit AC JEAN-PAUL Administration Protocol Insulin Human Lispro 0 unit 02/27/19 22:00 03/02/19 01:00 Humalog SUB-Q Not Given QHS COUNT INCLUDES [facility] Protocol Loratadine 10 mg 02/28/19 10:00 03/01/19 09:37 Claritin PO 10 mg DAILY COUNT INCLUDES THE [facility] Administration Methylprednisolone Sodium Succinate 40 mg 02/27/19 18:00 03/02/19 03:00 Solu-Medrol IV 40 mg Q8H JEAN-PAUL Administration Montelukast Sodium 10 mg 02/27/19 22:00 03/02/19 01:00 Singulair PO Not Given QHS COUNT INCLUDES [facility] Morphine Sulfate 2 mg 02/27/19 12:59 Morphine IV Q4H PRN Pain, Moderate (4-6) Ondansetron HCl 4 mg 02/27/19 12:59 Zofran IV Q8H PRN Nausea And Vomiting Pantoprazole Sodium 40 mg 02/28/19 10:00 03/01/19 09:37 Protonix PO 40 mg DAILY COUNT INCLUDES [facility] Administration Pregabalin 75 mg 02/27/19 20:00 03/02/19 01:00 Lyrica PO Not Given TID COUNT INCLUDES [facility] Sodium Chloride 10 ml 02/27/19 22:00 03/02/19 01:00 Sodium Chloride Flush Syringe 10 Ml IV Not Given BID JEAN-PAUL Sodium Chloride 10 ml 02/27/19 12:59 Sodium Chloride Flush Syringe 10 Ml IV PRN PRN LINE FLUSH
[2019-03-02] MEDS: LOVENOX SUB-Q SCH (09:56)
[2019-03-02] MEDS: PROTONIX PO SCH (09:56)
[2019-03-02] MEDS: CLARITIN PO SCH (09:56)
[2019-03-02] MEDS: NORVASC PO SCH (09:56)
[2019-03-02] MEDS: AMARYL PO SCH ×2 (09:56→17:31)
[2019-03-02 10:50] LABS: Calcium 8.4 mg/dL (8.4-10.2)
--- NOTE | 2019-03-02 11:04 | Progress Note ---
Assessment and Plan COPD versus asthma exacerbation. Improving, minimal wheezing still noted Acute exacerbation of chronic bronchitis Diabetes mellitus Hyponatremia. Being followed by nephrology also Recommendations Continue nebulizations, consider switching to DuoNeb for persistent wheezing Oral prednisone 30 mg with 5 days taper, adjust to blood sugar level Monitor blood sugar Out of bed as tolerated Complete 5 days empirical antibiotics Out of bed as tolerated Oxygen support via nasal cannula or mask to maintain oximetry over 92% DVT prophylaxis Discussed with patient in detail. All questions answered. Subjective Date of service: 03/02/19 Principal diagnosis: COPD Exacerbation Interval history: No events overnight. Feel better overall. Mild wheezing still noted this morning. Objective Vital Signs - 12hr 03/01/19 03/02/19 03/02/19 23:18 00:00 04:01 Temperature 97.6 F 98.2 F Pulse Rate 97 H 97 H 92 H Pulse Rate [ Apical] Pulse Rate [ Left Radial] Pulse Rate [ Throughout] Respiratory 18 19 Rate Respiratory Rate [ Throughout] Blood Pressure 124/65 135/65 O2 Sat by Pulse 100 97 Oximetry 03/02/19 03/02/19 03/02/19 08:03 08:35 08:39 Temperature 97.5 F L Pulse Rate 91 H Pulse Rate [ 98 H Apical] Pulse Rate [ 99 H Left Radial] Pulse Rate [ 91 H Throughout] Respiratory 16 18 Rate Respiratory 18 Rate [ Throughout] Blood Pressure 123/67 O2 Sat by Pulse 99 98 Oximetry 03/02/19 03/02/19 08:54 09:58 Temperature Pulse Rate Pulse Rate [ Apical] Pulse Rate [ Left Radial] Pulse Rate [ 93 H Throughout] Respiratory Rate Respiratory 18 Rate [ Throughout] Blood Pressure O2 Sat by Pulse 99 Oximetry Constitutional: no acute distress, alert Eyes: non-icteric ENT: oropharynx moist Neck: supple, no lymphadenopathy, no JVD Ascultation: Bilateral: clear, wheezes ( mild) Percussion: Bilateral: not dull Cardiovascular: regular rate and rhythm Gastrointestinal: normoactive bowel sounds, non-distended Integumentary: normal Extremities: no cyanosis, no edema Neurologic: normal mental status, non-focal exam Psychiatric: mood appropriate, affect normal CBC and BMP: 03/01/19 05:37 03/02/19 09:42 Abnormal lab findings: Abnormal Labs 02/27/19 02/27/19 02/27/19 09:04 09:04 17:01 Lymph % (Auto) Lymph # Seg Neutrophils % Monocytes % (Manual) 13.0 H Eosinophils % (Manual) 14.0 H Eosinophils # (Manual) 0.7 H Sodium 126 L Chloride 87.4 L Carbon Dioxide BUN 27 H Creatinine Glucose 139 H POC Glucose 437 H Hemoglobin A1c TSH Urine Creatinine Urine Chloride Urine Total Protein 02/27/19 02/28/19 02/28/19 20:47 05:53 05:53 Lymph % (Auto) 9.3 L Lymph # 0.5 L Seg Neutrophils % 87.6 H Monocytes % (Manual) Eosinophils % (Manual) Eosinophils # (Manual) Sodium 124 L Chloride 88.9 L Carbon Dioxide 19 L BUN 32 H Creatinine 1.3 H Glucose 315 H POC Glucose 461 H Hemoglobin A1c TSH Urine Creatinine Urine Chloride Urine Total Protein 02/28/19 02/28/19 02/28/19 05:53 07:32 17:00 Lymph % (Auto) Lymph # Seg Neutrophils % Monocytes % (Manual) Eosinophils % (Manual) Eosinophils # (Manual) Sodium Chloride Carbon Dioxide BUN Creatinine Glucose POC Glucose 334 H > 500 H Hemoglobin A1c 9.4 H TSH Urine Creatinine Urine Chloride Urine Total Protein 02/28/19 02/28/19 02/28/19 19:08 21:19 22:44 Lymph % (Auto) Lymph # Seg Neutrophils % Monocytes % (Manual) Eosinophils % (Manual) Eosinophils # (Manual) Sodium Chloride Carbon Dioxide BUN Creatinine Glucose 663 H* 386 H POC Glucose > 500 H Hemoglobin A1c TSH Urine Creatinine Urine Chloride Urine Total Protein 02/28/19 03/01/19 03/01/19 23:21 02:41 03:55 Lymph % (Auto) Lymph # Seg Neutrophils % Monocytes % (Manual) Eosinophils % (Manual) Eosinophils # (Manual) Sodium Chloride Carbon Dioxide BUN Creatinine Glucose POC Glucose 269 H < 40 L 158 H Hemoglobin A1c TSH Urine Creatinine Urine Chloride Urine Total Protein 03/01/19 03/01/19 03/01/19 04:42 05:37 07:22 Lymph % (Auto) Lymph # Seg Neutrophils % Monocytes % (Manual) Eosinophils % (Manual) Eosinophils # (Manual) Sodium 128 L Chloride 95.2 L Carbon Dioxide 21 L BUN 36 H Creatinine 1.4 H Glucose 219 H 219 H POC Glucose 271 H Hemoglobin A1c TSH Urine Creatinine Urine Chloride Urine Total Protein 03/01/19 03/01/19 03/01/19 11:40 16:17 21:11 Lymph % (Auto) Lymph # Seg Neutrophils % Monocytes % (Manual) Eosinophils % (Manual) Eosinophils # (Manual) Sodium Chloride Carbon Dioxide BUN Creatinine Glucose POC Glucose 398 H 249 H 265 H Hemoglobin A1c TSH Urine Creatinine Urine Chloride Urine Total Protein 03/01/19 03/01/19 03/01/19 Unknown Unknown Unknown Lymph % (Auto) Lymph # Seg Neutrophils % Monocytes % (Manual) Eosinophils % (Manual) Eosinophils # (Manual) Sodium Chloride Carbon Dioxide BUN Creatinine Glucose POC Glucose Hemoglobin A1c TSH 0.266 L Urine Creatinine 58.4 H Urine Chloride 16.0 L Urine Total Protein 16 H 03/02/19 03/02/19 03/02/19 07:30 09:42 10:13 Lymph % (Auto) Lymph # Seg Neutrophils % Monocytes % (Manual) Eosinophils % (Manual) Eosinophils # (Manual) Sodium 130 L Chloride 96.0 L Carbon Dioxide 21 L BUN 31 H Creatinine Glucose 142 H POC Glucose 68 L 189 H Hemoglobin A1c TSH Urine Creatinine Urine Chloride Urine Total Protein
--- NOTE | 2019-03-02 12:03 | Progress Note ---
Assessment and Plan Assessment and plan: Acute resp failure due to COPD exacerbation Continue Pulmicort and Brovana Continue supplemental Oxygen Pulm following COPD exacerbation Continue Duoneb q 6h scheduled solumedrol iv Diabetes mellitus type 2,uncontrolled Fingerstick qac and hs Continue 70/30 insulin twice a day A1C 9.4 Hypertension Monitor BP Hyperlipidemia Hyponatremia Improved. Nephrology following History Interval history: No new issues overnight. Hospitalist Physical - Constitutional Vitals: Temp Pulse Resp BP Pulse Ox 98.2 F 94 H 16 126/61 100 03/02/19 11:37 03/02/19 11:37 03/02/19 11:37 03/02/19 11:37 03/02/19 11:37 General appearance: Present: no acute distress, well-nourished - EENT Eyes: Present: PERRL, EOM intact ENT: hearing intact, clear oral mucosa, dentition normal - Neck Neck: Present: supple, normal ROM - Respiratory Respiratory effort: normal Respiratory: bilateral: wheezing - Cardiovascular Rhythm: regular Heart Sounds: Present: S1 & S2. Absent: gallop, rub - Extremities Extremities: no ischemia, No edema, Full ROM - Abdominal General gastrointestinal: soft, non-tender, non-distended, normal bowel sounds - Integumentary Integumentary: Present: clear, warm, dry - Neurologic Neurologic: CNII-XII intact, moves all extremities Results - Labs CBC & Chem 7: 03/01/19 05:37 03/02/19 09:42 Labs: Laboratory Last Values WBC 8.4 K/mm3 (4.5-11.0) 03/01/19 05:37 RBC 3.80 M/mm3 (3.65-5.03) 03/01/19 05:37 Hgb 11.0 gm/dl (10.1-14.3) 03/01/19 05:37 Hct 33.2 % (30.3-42.9) 03/01/19 05:37 MCV 87 fl (79-97) 03/01/19 05:37 MCH 29 pg (28-32) 03/01/19 05:37 MCHC 33 % (30-34) 03/01/19 05:37 RDW 14.2 % (13.2-15.2) 03/01/19 05:37 Plt Count 305 K/mm3 (140-440) 03/01/19 05:37 Lymph % (Auto) 9.3 % (13.4-35.0) L 02/28/19 05:53 Ritchie % (Auto) 3.0 % (0.0-7.3) 02/28/19 05:53 Eos % (Auto) 0.0 % (0.0-4.3) 02/28/19 05:53 Baso % (Auto) 0.1 % (0.0-1.8) 02/28/19 05:53 Lymph # 0.5 K/mm3 (1.2-5.4) L 02/28/19 05:53 Ritchie # 0.2 K/mm3 (0.0-0.8) 02/28/19 05:53 Eos # 0.0 K/mm3 (0.0-0.4) 02/28/19 05:53 Baso # 0.0 K/mm3 (0.0-0.1) 02/28/19 05:53 Add Manual Diff Complete 02/27/19 09:04 Total Counted 100 02/27/19 09:04 Seg Neutrophils % 87.6 % (40.0-70.0) H 02/28/19 05:53 Seg Neuts % (Manual) 46.0 % (40.0-70.0) 02/27/19 09:04 0 % 02/27/19 09:04 26.0 % (13.4-35.0) 02/27/19 09:04 Reactive Lymphs % (Man) 1.0 % 02/27/19 09:04 13.0 % (0.0-7.3) H 02/27/19 09:04 14.0 % (0.0-4.3) H 02/27/19 09:04 0 % (0.0-1.8) 02/27/19 09:04 0 % 02/27/19 09:04 0 % 02/27/19 09:04 0 % 02/27/19 09:04 0 % 02/27/19 09:04 Nucleated RBC % Not Reportable 02/27/19 09:04 Seg Neutrophils # 4.6 K/mm3 (1.8-7.7) 02/28/19 05:53 Seg Neutrophils # Man 2.3 K/mm3 (1.8-7.7) 02/27/19 09:04 Band Neutrophils # 0.0 K/mm3 02/27/19 09:04 1.3 K/mm3 (1.2-5.4) 02/27/19 09:04 Abs React Lymphs (Man) 0.1 K/mm3 02/27/19 09:04 0.7 K/mm3 (0.0-0.8) 02/27/19 09:04 0.7 K/mm3 (0.0-0.4) H 02/27/19 09:04 0.0 K/mm3 (0.0-0.1) 02/27/19 09:04 0.0 K/mm3 02/27/19 09:04 0.0 K/mm3 02/27/19 09:04 0.0 K/mm3 02/27/19 09:04 Blast Cells # 0.0 K/mm3 02/27/19 09:04 WBC Morphology Not Reportable 02/27/19 09:04 Hypersegmented Neuts Not Reportable 02/27/19 09:04 Hyposegmented Neuts Not Reportable 02/27/19 09:04 Hypogranular Neuts Not Reportable 02/27/19 09:04 Not Reportable 02/27/19 09:04 Not Reportable 02/27/19 09:04 Not Reportable 02/27/19 09:04 Not Reportable 02/27/19 09:04 Not Reportable 02/27/19 09:04 Not Reportable 02/27/19 09:04 Consistent w auto 02/27/19 09:04 Not Reportable 02/27/19 09:04 Plt Clumps, EDTA Not Reportable 02/27/19 09:04 Not Reportable 02/27/19 09:04 Not Reportable 02/27/19 09:04 Not Reportable 02/27/19 09:04 Plt Morphology Comment Not Reportable 02/27/19 09:04 RBC Morphology Not Reportable 02/27/19 09:04 Dimorphic RBCs Not Reportable 02/27/19 09:04 Not Reportable 02/27/19 09:04 Not Reportable 02/27/19 09:04 Not Reportable 02/27/19 09:04 1+ 02/27/19 09:04 Not Reportable 02/27/19 09:04 Not Reportable 02/27/19 09:04 Not Reportable 02/27/19 09:04 Not Reportable 02/27/19 09:04 Not Reportable 02/27/19 09:04 Not Reportable 02/27/19 09:04 Not Reportable 02/27/19 09:04 Not Reportable 02/27/19 09:04 Not Reportable 02/27/19 09:04 Not Reportable 02/27/19 09:04 Not Reportable 02/27/19 09:04 Not Reportable 02/27/19 09:04 Not Reportable 02/27/19 09:04 Not Reportable 02/27/19 09:04 Not Reportable 02/27/19 09:04 Acanthocytes (Spur) Not Reportable 02/27/19 09:04 Rouleaux Not Reportable 02/27/19 09:04 Not Reportable 02/27/19 09:04 Not Reportable 02/27/19 09:04 Not Reportable 02/27/19 09:04 Not Reportable 02/27/19 09:04 Hem Pathologist Commnt No 02/27/19 09:04 Sodium 130 mmol/L (137-145) L 03/02/19 09:42 Potassium 4.3 mmol/L (3.6-5.0) 03/02/19 09:42 Chloride 96.0 mmol/L (98-107) L 03/02/19 09:42 Carbon Dioxide 21 mmol/L (22-30) L 03/02/19 09:42 17 mmol/L 03/02/19 09:42 BUN 31 mg/dL (7-17) H 03/02/19 09:42 1.2 mg/dL (0.7-1.2) 03/02/19 09:42 Estimated GFR 53 ml/min 03/02/19 09:42 26 % 03/02/19 09:42 Glucose 142 mg/dL (65-100) H 03/02/19 09:42 POC Glucose 189 (70-105) H 03/02/19 10:13 9.4 % (4-6) H 02/28/19 05:53 286 Mosm/kg 03/01/19 06:12 5.5 mg/dL (3.5-7.6) 03/01/19 Unknown Calcium 8.4 mg/dL (8.4-10.2) 03/02/19 09:42 0.011 ng/mL (0.00-0.029) 02/27/19 09:04 TSH 0.266 mlU/mL (0.270-4.200) L 03/01/19 Unknown Free T4 1.23 ng/dL (0.76-1.46) 03/01/19 Unknown Straw (Yellow) 03/01/19 10:15 Turbid (Clear) 03/01/19 10:15 6.0 (5.0-7.0) 03/01/19 10:15 Ur Specific Lebo 1.012 (1.003-1.030) 03/01/19 10:15 <15 mg/dl mg/dL (Negative) 03/01/19 10:15 >=500 mg/dL (Negative) 03/01/19 10:15 Neg mg/dL (Negative) 03/01/19 10:15 Neg (Negative) 03/01/19 10:15 Neg (Negative) 03/01/19 10:15 Neg (Negative) 03/01/19 10:15 < 2.0 mg/dL (<2.0) 03/01/19 10:15 Ur Leukocyte Esterase Neg (Negative) 03/01/19 10:15 1.0 /HPF (0.0-6.0) 03/01/19 10:15 2.0 /HPF (0.0-6.0) 03/01/19 10:15 U Epithel Cells (Auto) 1.0 /HPF (0-13.0) 03/01/19 10:15 416 Mosm/kg 03/01/19 Unknown 58.4 mg/dL (0.1-20.0) H 03/01/19 Unknown 23 mmol/L 03/01/19 Unknown 26.31 mmol/L 03/01/19 Unknown 16.0 mmolL (110-250) L 03/01/19 Unknown 16 mg/dL (5-11.8) H 03/01/19 Unknown Active Medications - Current Medications Current Medications: Generic Name Dose Route Start Last Admin Trade Name Freq PRN Reason Stop Dose Admin Acetaminophen 650 mg 02/27/19 12:59 02/28/19 11:08 Tylenol PO 650 mg Q4H PRN Administration Pain MILD(1-3)/Fever >100.5/HILARIO Albuterol 2.5 mg 02/27/19 12:59 Proventil IH Q4H PRN Shortness Of Breath Albuterol/Ipratropium 1 ampul 02/27/19 14:00 03/02/19 08:39 Duoneb *Not For Prn Use* IH Not Given Q6HRT JEAN-PAUL Amlodipine Besylate 10 mg 02/27/19 20:00 03/02/19 09:56 Norvasc PO 10 mg DAILY JEAN-PAUL Administration Arformoterol Tartrate 15 mcg 02/27/19 20:00 03/02/19 08:39 Brovana Nebu IH 15 mcg Q12HRT JEAN-PAUL Administration Budesonide 0.5 mg 02/27/19 20:00 03/02/19 08:39 Pulmicort IH 0.5 mg Q12HRT JEAN-PAUL Administration Bupropion HCl 150 mg 02/27/19 22:00 03/02/19 09:57 Wellbutrin Sr PO 150 mg BID JEAN-PAUL Administration Dextrose 50 ml 02/27/19 17:49 03/01/19 02:50 D50w (25gm) Syringe IV 50 ml PRN PRN Administration Hypoglycemia Enoxaparin Sodium 40 mg 02/28/19 10:00 03/02/19 09:56 Lovenox SUB-Q 40 mg DAILY JEAN-PAUL Administration Glimepiride 1 mg 03/01/19 08:00 03/02/19 09:56 Amaryl PO 1 mg BIDDIAB JEAN-PAUL Administration Azithromycin 500 mg/ Sodium 250 mls @ 250 mls/hr 02/27/19 15:00 03/01/19 16: 55 Chloride IV 250 mls/hr Q24H JEAN-PAUL Administration Sodium Chloride 1,000 mls @ 75 mls/hr 02/28/19 21:00 03/01/19 12:43 Nacl 0.9% 1000 Ml IV 75 mls/hr DIRECT JEAN-PAUL Administration Insulin Human Isoph/Insulin Regular 20 unit 03/01/19 08:00 03/02/19 10:08 Humulin 70/30 SUB-Q 20 unit BIDDIAB JEAN-PAUL Administration Insulin Human Lispro 0 unit 02/28/19 07:30 03/02/19 09:56 Humalog SUB-Q Not Given [facility] Protocol Insulin Human Lispro 0 unit 02/27/19 22:00 03/02/19 01:00 Humalog SUB-Q Not Given QHS [facility] Protocol Loratadine 10 mg 02/28/19 10:00 03/02/19 09:56 Claritin PO 10 mg DAILY JEAN-PAUL Administration Methylprednisolone Sodium Succinate 40 mg 02/27/19 18:00 03/02/19 09:57 Solu-Medrol IV 40 mg Q8H JEAN-PAUL Administration Montelukast Sodium 10 mg 02/27/19 22:00 03/02/19 01:00 Singulair PO Not Given QHS [facility] Morphine Sulfate 2 mg 02/27/19 12:59 Morphine IV Q4H PRN Pain, Moderate (4-6) Ondansetron HCl 4 mg 02/27/19 12:59 Zofran IV Q8H PRN Nausea And Vomiting Pantoprazole Sodium 40 mg 02/28/19 10:00 03/02/19 09:56 Protonix PO 40 mg DAILY JEAN-PAUL Administration Pregabalin 75 mg 02/27/19 20:00 03/02/19 09:56 Lyrica PO 75 mg TID JEAN-PAUL Administration Sodium Chloride 10 ml 02/27/19 22:00 03/02/19 09:57 Sodium Chloride Flush Syringe 10 Ml IV 10 ml BID JEAN-PAUL Administration Sodium Chloride 10 ml 02/27/19 12:59 Sodium Chloride Flush Syringe 10 Ml IV PRN PRN LINE FLUSH
--- NOTE | 2019-03-02 13:19 | Progress Note ---
Subjective Principal diagnosis: COPD Exacerbation Interval history: Patient was seen today for follow-up, on many renal related issues feeling better ultrasonogram currently pending Interdisciplinary notes were reviewed Vitals labs intake and output medications were reviewed from today Allergies: Reviewed Social history: Reviewed Family history: Reviewed Physical examination HEENT: Oral mucosa moist no pharyngeal erythema Neck: Supple no JVD Chest: Clear to auscultation no crackles rales or wheezes Heart: Regular rate and rhythm S1-S2 heard no S3-S4 Abdomen: Soft nontender no renal bruit no CVA tenderness no suprapubic fullness Extremity: Mild edema dry skin no peripheral cyanosis pulses palpable Neurological: Alert awake Musculoskeletal: No joint effusion noted Assessment and plan renal failure: Multifactorial pending ultrasonogram report patient does have multiple risk factors needs to make an appointment in the clinic for follow-up We'll check protein creatinine ratio Mild hyponatremia to monitor and follow urinalysis results reviewed poorly controlled diabetes: Adequately counseled and educated Follow up on the pending renal labs Has a long discussion with patient about the renal care plan adequately counseled and educated to modify the diet and lifestyle More than 35 minutes was spent in direct patient care at the bedside discussing about quality and related issues Patient agrees to make a follow-up appointment in the office upon discharge Labs were discussed with patient explained and simple [place] does have good understanding off renal related issues, Will continue to follow and make recommendation from renal standpoint Objective - Vital Signs Vital signs: Vital Signs - 12hr 03/02/19 03/02/19 03/02/19 04:01 08:03 08:35 Temperature 98.2 F 97.5 F L Pulse Rate 92 H 91 H Pulse Rate [ 98 H Apical] Pulse Rate [ 99 H Left Radial] Pulse Rate [ Throughout] Respiratory 19 16 18 Rate Respiratory Rate [ Throughout] Blood Pressure 135/65 123/67 O2 Sat by Pulse 97 99 98 Oximetry 03/02/19 03/02/19 03/02/19 08:39 08:54 09:58 Temperature Pulse Rate Pulse Rate [ Apical] Pulse Rate [ Left Radial] Pulse Rate [ 91 H 93 H Throughout] Respiratory Rate Respiratory 18 18 Rate [ Throughout] Blood Pressure O2 Sat by Pulse 99 Oximetry 03/02/19 11:37 Temperature 98.2 F Pulse Rate 94 H Pulse Rate [ Apical] Pulse Rate [ Left Radial] Pulse Rate [ Throughout] Respiratory 16 Rate Respiratory Rate [ Throughout] Blood Pressure 126/61 O2 Sat by Pulse 100 Oximetry - Lab 03/03/19 05:02 03/03/19 05:02 Most recent lab results Calcium 8.4 mg/dL (8.4-10.2) 03/02/19 09:42 58.4 mg/dL (0.1-20.0) H 03/01/19 Unknown 23 mmol/L 03/01/19 Unknown 16 mg/dL (5-11.8) H 03/01/19 Unknown Medications & Allergies - Medications Allergies/Adverse Reactions: Allergies No Known Allergies Allergy (Verified 05/16/18 15:25) Home Medications: Home Medications Medication Instructions Recorded Confirmed Last Taken Type Lispro Insulin [HumaLOG] See Protocol SUB-Q TID 05/10/18 02/27/19 Unknown History Cetirizine HCl [Zyrtec 10mg tab] 10 mg PO DAILY #30 tablet 03/03/19 Unknown Rx Esomeprazole Magnesium [NexIUM] 40 mg PO QDAY #30 capsule. 03/03/19 Unknown Rx Fluticasone/Salmeterol [Advair 50 mcg IH QDAY 30 Days blst.w.dev 03/03/19 Unknown Rx Diskus 500-50 mcg] Glimepiride [Amaryl] 1 mg PO BID #60 tablet 03/03/19 Unknown Rx Ipratropium/Albuterol Sulfate 500 mcg IH QID 30 Days ampul.neb 03/03/19 Unknown Rx [DUONEB *Not for PRN Use*] Montelukast [Singulair] 10 mg PO QHS #30 tablet 03/03/19 Unknown Rx Pregabalin [Lyrica] 75 mg PO TID #90 capsule 03/03/19 Unknown Rx Sodium Bicarbonate 650 mg PO BID #60 tablet 03/03/19 Unknown Rx amLODIPine [Norvasc] 10 mg PO DAILY #30 tablet 03/03/19 Unknown Rx buPROPion SR [Wellbutrin SR] 150 mg PO BID #60 tablet 03/03/19 Unknown Rx cefUROXime [Ceftin] 500 mg PO Q12H #10 tablet 03/03/19 Unknown Rx methylPREDNISolone [Medrol 4MG 4 mg PO DAILY #1 tab.ds.pk 03/03/19 Unknown Rx DOSEPAK (21 tabs)] Active Medications: Generic Name Dose Route Start Last Admin Trade Name Freq PRN Reason Stop Dose Admin Acetaminophen 650 mg 02/27/19 12:59 02/28/19 11:08 Tylenol PO 650 mg Q4H PRN Administration Pain MILD(1-3)/Fever >100.5/HILARIO Albuterol 2.5 mg 02/27/19 12:59 Proventil IH Q4H PRN Shortness Of Breath Albuterol/Ipratropium 1 ampul 02/27/19 14:00 03/02/19 08:39 Duoneb *Not For Prn Use* IH Not Given Q6HRT JEAN-PAUL Amlodipine Besylate 10 mg 02/27/19 20:00 03/02/19 09:56 Norvasc PO 10 mg DAILY JEAN-PAUL Administration Arformoterol Tartrate 15 mcg 02/27/19 20:00 03/02/19 08:39 Brovana Nebu IH 15 mcg Q12HRT JEAN-PAUL Administration Budesonide 0.5 mg 02/27/19 20:00 03/02/19 08:39 Pulmicort IH 0.5 mg Q12HRT JEAN-PAUL Administration Bupropion HCl 150 mg 02/27/19 22:00 03/02/19 09:57 Wellbutrin Sr PO 150 mg BID JEAN-PAUL Administration Dextrose 50 ml 02/27/19 17:49 03/01/19 02:50 D50w (25gm) Syringe IV 50 ml PRN PRN Administration Hypoglycemia Enoxaparin Sodium 40 mg 02/28/19 10:00 03/02/19 09:56 Lovenox SUB-Q 40 mg DAILY JEAN-PAUL Administration Glimepiride 1 mg 03/01/19 08:00 03/02/19 09:56 Amaryl PO 1 mg BIDDIAB JEAN-PAUL Administration Azithromycin 500 mg/ Sodium 250 mls @ 250 mls/hr 02/27/19 15:00 03/01/19 16:55 Chloride IV 250 mls/hr Q24H JEAN-PAUL Administration Sodium Chloride 1,000 mls @ 75 mls/hr 02/28/19 21:00 03/01/19 12:43 Nacl 0.9% 1000 Ml IV 75 mls/hr DIRECT JEAN-PAUL Administration Insulin Human Isoph/Insulin Regular 20 unit 03/01/19 08:00 03/02/19 10:08 Humulin 70/30 SUB-Q 20 unit BIDDIAB JEAN-PAUL Administration Insulin Human Lispro 0 unit 02/28/19 07:30 03/02/19 12:34 Humalog SUB-Q 6 unit AC JEAN-PAUL Administration Protocol Insulin Human Lispro 0 unit 02/27/19 22:00 03/02/19 01:00 Humalog SUB-Q Not Given [facility]HS [facility] Protocol Loratadine 10 mg 02/28/19 10:00 03/02/19 09:56 Claritin PO 10 mg DAILY JEAN-PAUL Administration Methylprednisolone Sodium Succinate 40 mg 02/27/19 18:00 03/02/19 09:57 Solu-Medrol IV 40 mg Q8H JEAN-PAUL Administration Montelukast Sodium 10 mg 02/27/19 22:00 03/02/19 01:00 Singulair PO Not Given [facility]HS [facility] Morphine Sulfate 2 mg 02/27/19 12:59 Morphine IV Q4H PRN Pain, Moderate (4-6) Ondansetron HCl 4 mg 02/27/19 12:59 Zofran IV Q8H PRN Nausea And Vomiting Pantoprazole Sodium 40 mg 02/28/19 10:00 03/02/19 09:56 Protonix PO 40 mg DAILY JEAN-PAUL Administration Pregabalin 75 mg 02/27/19 20:00 03/02/19 09:56 Lyrica PO 75 mg TID JEAN-PAUL Administration Sodium Chloride 10 ml 02/27/19 22:00 03/02/19 09:57 Sodium Chloride Flush Syringe 10 Ml IV 10 ml BID JEAN-PAUL Administration Sodium Chloride 10 ml 02/27/19 12:59 Sodium Chloride Flush Syringe 10 Ml IV PRN PRN LINE FLUSH
[2019-03-02] MEDS: ZITHROMAX 500 MG in NACL 0.9% 250ML 250 ML IV SCH (15:12)
[2019-03-03] MEDS: SOLU-Medrol IV SCH ×2 (01:09→09:17)
[2019-03-03] MEDS: DUONEB *Not for PRN Use IH SCH ×3 (02:43→13:58)
[2019-03-03 06:26] LABS: Hematocrit 31.5 % (30.3-42.9); Hemoglobin 10.7 gm/dl (10.1-14.3); Lymphocytes # (Auto) 0.5 K/mm3 (1.2-5.4); Lymphocytes % (Auto) 8.9 % (13.4-35.0); Mean Corpuscular HGB Conc 34 % (30-34); Mean Corpuscular Volume 88 fl (79-97); Monocytes # (Auto) 0.3 K/mm3 (0.0-0.8); Monocytes % (Auto) 5.6 % (0.0-7.3); Platelet Count 307 K/mm3 (140-440); Red Cell Distribution Width 14.2 % (13.2-15.2)
[2019-03-03 06:48] LABS: Calcium 8.2 mg/dL (8.4-10.2)
[2019-03-03 07:50] VITALS: BP 127/64
[2019-03-03] MEDS: PULMICORT IH SCH (07:50)
[2019-03-03] MEDS: BROVANA NEBU IH SCH (07:50)
--- NOTE | 2019-03-03 09:14 | Discharge Summary ---
Providers - Providers Date of Admission: 02/27/19 10:22 Date of discharge: 03/03/19 Attending physician: DEON ALONSO 02/28/19 10:35 Consult to Physician [CONS] Routine Comment: Consulting Provider: KOURTNEY GALVEZ Physician Instructions: Reason For Exam: COPD exacerbation 03/01/19 06:04 Consult to Physician [CONS] Routine Comment: Consulting Provider: ALEXUS SAINZ Physician Instructions: Reason For Exam: Hyponatremia 03/02/19 12:03 Physical Therapy Evaluation and Treat [CONS] Routine Comment: Reason For Exam: deconditioning [facility] Reason for admission: copd exac Condition: Stable Hospital course: Patient is 78-year-old female who has been admitted [facility] with worsening shortness of breath wheezing, she was also noted to be hypoxic and oxygen saturation was around 89% on room air. Symptoms had been going on for possible days possibly 5-7 associated with yellowish-green sputum without any evidence of hemoptysis. Patient was admitted with diagnosis of COPD exacerbation, acute hypoxic respiratory failure, hyponatremia and acute on chronic kidney disease. She does have multiple risk factors for underlying chronic kidney disease including history of diabetes, hypertension, poor diet and lifestyle Patient was also taking furosemide prior to arrival she currently does not use any form of NSAIDs During this admission her sodium upon arrival was 124 with a creatinine of 1.3 her current creatinine is 1.4. The patient was seen by nephrology and pulmonary consultation. Nephrology felt that the hyponatremia was likely related to diuretic. Sodium and creatinine improved throughout hospitalization. With reg ards to her COPD exacerbation, patient improved with nebulizer and steroids. Pulmonary recommended prednisone taper and empiric antibiotics at discharge. Patient's respiratory status has returned to baseline. Therefore, patient will be discharged home. Dedicated discharge time 32 minutes. Disposition: DC-01 TO HOME OR SELFCARE Time spent for discharge: 32 - Discharge Diagnoses (1) Acute respiratory failure Status: Acute Qualifiers: (2) COPD exacerbation Status: Acute (3) Hypoxemia Status: Acute (4) ELIZA (acute kidney injury) Status: Acute (5) Asthma exacerbation Status: Acute (6) Hyponatremia syndrome Status: Acute (7) Diabetes mellitus type 2, uncontrolled Status: Chronic (8) GERD (gastroesophageal reflux disease) Status: Chronic (9) HLD (hyperlipidemia) Status: Chronic Qualifiers: Hyperlipidemia type: mixed hyperlipidemia Qualified Code(s): E78.2 - Mixed hyperlipidemia (10) HTN (hypertension) Status: Chronic Qualifiers: Hypertension type: essential hypertension Qualified Code(s): I10 - Essential (primary) hypertension (11) Peripheral neuropathy Status: Chronic Qualifiers: Peripheral neuropathy type: polyneuropathy, unspecified Qualified Code(s): G62.9 - Polyneuropathy, unspecified Core Measure Documentation - Palliative Care Palliative Care/ Comfort Measures: Not Applicable - Core Measures Any of the following diagnoses?: none Exam - Constitutional Vitals: Temp Pulse Resp BP Pulse Ox 97.8 F 98 H 20 127/64 99 03/03/19 07:16 03/03/19 08:18 03/03/19 08:18 03/03/19 07:16 03/03/19 08:18 General appearance: Present: no acute distress, well-nourished - EENT Eyes: Present: PERRL ENT: hearing intact, clear oral mucosa - Neck Neck: Present: supple, normal ROM - Respiratory Respiratory effort: normal Respiratory: bilateral: CTA - Cardiovascular Heart Sounds: Present: S1 & S2. Absent: rub, click - Extremities Extremities: pulses symmetrical, No edema Peripheral Pulses: within normal limits - Abdominal General gastrointestinal: Present: soft, non-tender, non-distended, normal bowel sounds Female genitourinary: Present: normal - Integumentary Integumentary: Present: clear, warm, dry - Musculoskeletal Musculoskeletal: gait normal, strength equal bilaterally - Psychiatric Psychiatric: appropriate mood/affect, intact judgment & insight - Neurologic Neurologic: CNII-XII intact, moves all extremities Plan Activity: advance as tolerated Weight Bearing Status: Weight Bear as Tolerated Diet: diabetic Special Instructions: restrict fluid intake to (1 L) [facility] - 3-5 Days TRACY IRIZARRY MD [Staff Physician] - 7 Days HO TIRADO MD [Staff Physician] - 7 Days Prescriptions: Fluticasone/Salmeterol [Advair Diskus 500-50 mcg] 50 mcg IH QDAY 30 Days blst.w.dev Glimepiride [Amaryl] 1 mg PO BID #60 tablet cefUROXime [Ceftin] 500 mg PO Q12H #10 tablet Ipratropium/Albuterol Sulfate [DUONEB *Not for PRN Use*] 500 mcg IH QID 30 Days ampul.neb Pregabalin [Lyrica] 75 mg PO TID #90 capsule methylPREDNISolone [Medrol 4MG DOSEPAK (21 tabs)] 4 mg PO DAILY #1 tab.ds.pk Esomeprazole Magnesium [NexIUM] 40 mg PO QDAY #30 capsule. amLODIPine [Norvasc] 10 mg PO DAILY #30 tablet Montelukast [Singulair] 10 mg PO QHS #30 tablet Sodium Bicarbonate 650 mg PO BID #60 tablet buPROPion SR [Wellbutrin SR] 150 mg PO BID #60 tablet Cetirizine HCl [Zyrtec 10mg tab] 10 mg PO DAILY #30 tablet
[2019-03-03] MEDS: NORVASC PO SCH (09:16)
[2019-03-03] MEDS: LOVENOX SUB-Q SCH (09:16)
[2019-03-03] MEDS: CLARITIN PO SCH (09:16)
[2019-03-03] MEDS: LYRICA PO SCH (09:16)
[2019-03-03] MEDS: WELLBUTRIN SR PO SCH (09:16)
[2019-03-03] MEDS: AMARYL PO SCH (09:16)
[2019-03-03] MEDS: HumaLOG SUB-Q SCH ×2 (09:17→13:37)
[2019-03-03] MEDS: SODIUM CHLORIDE FLUSH SYRINGE 10 ML IV SCH (09:17)
[2019-03-03] MEDS: PROTONIX PO SCH (09:17)
--- NOTE | 2019-03-03 09:21 | Progress Note ---
Subjective Principal diagnosis: COPD Exacerbation Interval history: Patient was seen today for follow-up, on many renal related issues patient is feeling much better she wants to go home She wants to make a follow-up appointment in the office upon discharge Patient currently denies having any symptoms of chest pain pressure shortness of breath Better aware about renal related issues Interdisciplinary notes were reviewed Vitals labs intake and output medications were reviewed from today Allergies: Reviewed Social history: Reviewed Family history: Reviewed Physical examination HEENT: Oral mucosa moist no pharyngeal erythema Neck: Supple no JVD Chest: Clear to auscultation no crackles rales or wheezes Heart: Regular rate and rhythm S1-S2 heard no S3-S4 Abdomen: Soft nontender no renal bruit no CVA tenderness no suprapubic fullness Extremity: Mild edema dry skin no peripheral cyanosis pulses palpable Neurological: Alert awake Musculoskeletal: No joint effusion noted Assessment and plan Renal failure patient who is 78-year-old and has had a creatinine of 1.3-1.4 during this admission Patient does have multiple risk factor for underlying chronic kidney disease including diabetes hypertension etc. Her one kidney also appears to be atrophic at some point she will need a renovascular Doppler ultrasonogram findings have been discussed with patient Patient has been advised to make an appointment in the office upon discharge protein creatinine ratio 16/58, urinalysis did not show any evidence of hematuri a proteinuria Diabetes mellitus type 2 very poorly controlled hemoglobin A1c quite high in her case Renal diet plan was also discussed with patient last had changes were discussed with patient, I do consider her for high risk of progression of renal failure in the absence of proper renal failure: Patient counseled and educated to make an appointment for follow-up During this admission she has been noted to have atrophic kidney on the right side for which she will need a renovascular Doppler likely this could be due to renovascular disease,? Congenitally small kidney Mild hyponatremia this time this is felt to be multifactorial/patient may have subclinical hypothyroidism Patient has been advised to make a follow-up appointment office upon discharge within a week she is agreeable to that More than 35 minutes was spent in direct patient care today and hematocrit counseling and education regarding renal failure plan of care diet management and lifestyle changes etc. Labs were discussed with patient explained and simple Tajik does have good understanding off renal related issues, Will continue to follow and make recommendation from renal standpoint Objective - Vital Signs Vital signs: Vital Signs - 12hr 03/02/19 03/03/19 03/03/19 23:43 00:00 04:04 Temperature 98.0 F 98.0 F Pulse Rate 98 H 87 96 H Pulse Rate [ Left Radial] Pulse Rate [ Throughout] Respiratory 20 18 Rate Respiratory Rate [ Throughout] Blood Pressure 145/69 131/61 O2 Sat by Pulse 100 100 Oximetry 03/03/19 03/03/19 03/03/19 07:16 07:51 07:52 Temperature 97.8 F Pulse Rate Pulse Rate [ Left Radial] Pulse Rate [ 94 H Throughout] Respiratory 18 Rate Respiratory 17 Rate [ Throughout] Blood Pressure 127/64 O2 Sat by Pulse 100 Oximetry 03/03/19 03/03/19 08:00 08:18 Temperature Pulse Rate 80 Pulse Rate [ 98 H Left Radial] Pulse Rate [ Throughout] Respiratory 20 Rate Respiratory Rate [ Throughout] Blood Pressure O2 Sat by Pulse 99 Oximetry - Lab 03/03/19 05:02 03/03/19 05:02 Most recent lab results Calcium 8.2 mg/dL (8.4-10.2) L 03/03/19 05:02 58.4 mg/dL (0.1-20.0) H 03/01/19 Unknown 23 mmol/L 03/01/19 Unknown 16 mg/dL (5-11.8) H 03/01/19 Unknown Medications & Allergies - Medications Allergies/Adverse Reactions: Allergies No Known Allergies Allergy (Verified 05/16/18 15:25) Home Medications: Home Medications Medication Instructions Recorded Confirmed Last Taken Type Lispro Insulin [HumaLOG] See Protocol SUB-Q TID 05/10/18 02/27/19 Unknown History Cetirizine HCl [Zyrtec 10mg tab] 10 mg PO DAILY #30 tablet 03/03/19 Unknown Rx Esomeprazole Magnesium [NexIUM] 40 mg PO QDAY #30 capsule. 03/03/19 Unknown Rx Fluticasone/Salmeterol [Advair 50 mcg IH QDAY 30 Days blst.w.dev 03/03/19 Unknown Rx Diskus 500-50 mcg] Glimepiride [Amaryl] 1 mg PO BID #60 tablet 03/03/19 Unknown Rx Ipratropium/Albuterol Sulfate 500 mcg IH QID 30 Days ampul.neb 03/03/19 Un known Rx [DUONEB *Not for PRN Use*] Montelukast [Singulair] 10 mg PO QHS #30 tablet 03/03/19 Unknown Rx Pregabalin [Lyrica] 75 mg PO TID #90 capsule 03/03/19 Unknown Rx Sodium Bicarbonate 650 mg PO BID #60 tablet 03/03/19 Unknown Rx amLODIPine [Norvasc] 10 mg PO DAILY #30 tablet 03/03/19 Unknown Rx buPROPion SR [Wellbutrin SR] 150 mg PO BID #60 tablet 03/03/19 Unknown Rx cefUROXime [Ceftin] 500 mg PO Q12H #10 tablet 03/03/19 Unknown Rx methylPREDNISolone [Medrol 4MG 4 mg PO DAILY #1 tab.ds.pk 03/03/19 Unknown Rx DOSEPAK (21 tabs)] Active Medications: Generic Name Dose Route Start Last Admin Trade Name Freq PRN Reason Stop Dose Admin Acetaminophen 650 mg 02/27/19 12:59 02/28/19 11:08 Tylenol PO 650 mg Q4H PRN Administration Pain MILD(1-3)/Fever >100.5/HILARIO Albuterol 2.5 mg 02/27/19 12:59 Proventil IH Q4H PRN Shortness Of Breath Albuterol/Ipratropium 1 ampul 02/27/19 14:00 03/03/19 07:50 Duoneb *Not For Prn Use* IH Not Given Q6HRT JEAN-PAUL Amlodipine Besylate 10 mg 02/27/19 20:00 03/02/19 09:56 Norvasc PO 10 mg DAILY JEAN-PAUL Administration Arformoterol Tartrate 15 mcg 02/27/19 20:00 03/03/19 07:50 Brovana Nebu IH 15 mcg Q12HRT JEAN-PAUL Administration Budesonide 0.5 mg 02/27/19 20:00 03/03/19 07:50 Pulmicort IH 0.5 mg Q12HRT JEAN-PAUL Administration Bupropion HCl 150 mg 02/27/19 22:00 03/02/19 21:40 Wellbutrin Sr PO 150 mg BID JEAN-PAUL Administration Dextrose 50 ml 02/27/19 17:49 03/01/19 02:50 D50w (25gm) Syringe IV 50 ml PRN PRN Administration Hypoglycemia Enoxaparin Sodium 40 mg 02/28/19 10:00 03/02/19 09:56 Lovenox SUB-Q 40 mg DAILY JEAN-PAUL Administration Glimepiride 1 mg 03/01/19 08:00 03/02/19 17:31 Amaryl PO 1 mg BIDDIAB JEAN-PAUL Administration Azithromycin 500 mg/ Sodium 250 mls @ 250 mls/hr 02/27/19 15:00 03/02/19 15:12 Chloride IV 250 mls/hr Q24H JEAN-PAUL Administration Sodium Chloride 1,000 mls @ 75 mls/hr 02/28/19 21:00 03/01/19 12:43 Nacl 0.9% 1000 Ml IV 75 mls/hr DIRECT JEAN-PAUL Administration Insulin Human Isoph/Insulin Regular 20 unit 03/01/19 08:00 03/02/19 17:31 Humulin 70/30 SUB-Q 20 unit BIDDIAB JEAN-PAUL Administration Insulin Human Lispro 0 unit 02/28/19 07:30 03/02/19 17:31 Humalog SUB-Q 8 unit AC JEAN-PAUL Administration Protocol Insulin Human Lispro 0 unit 02/27/19 22:00 03/02/19 21:41 Humalog SUB-Q 6 unit QHS JEAN-PAUL Administration Protocol Loratadine 10 mg 02/28/19 10:00 03/02/19 09:56 Claritin PO 10 mg DAILY JEAN-PAUL Administration Methylprednisolone Sodium Succinate 40 mg 02/27/19 18:00 03/03/19 01:09 Solu-Medrol IV 40 mg Q8H JEAN-PAUL Administration Montelukast Sodium 10 mg 02/27/19 22:00 03/02/19 21:40 Singulair PO 10 mg QHS JEAN-PAUL Administration Morphine Sulfate 2 mg 02/27/19 12:59 Morphine IV Q4H PRN Pain, Moderate (4-6) Ondansetron HCl 4 mg 02/27/19 12:59 Zofran IV Q8H PRN Nausea And Vomiting Pantoprazole Sodium 40 mg 02/28/19 10:00 03/02/19 09:56 Protonix PO 40 mg DAILY JEAN-PAUL Administration Pregabalin 75 mg 02/27/19 20:00 03/02/19 21:40 Lyrica PO 75 mg TID JEAN-PAUL Administration Sodium Chloride 10 ml 02/27/19 22:00 03/02/19 21:40 Sodium Chloride Flush Syringe 10 Ml IV 10 ml BID JEAN-PAUL Administration Sodium Chloride 10 ml 02/27/19 12:59 Sodium Chloride Flush Syringe 10 Ml IV PRN PRN LINE FLUSH
== END 2019-03-03 15:25 | disposition home or self-care (01) | DRG 189 ==
LOC: ED 08:39 → 4A 10:22
PROVIDERS: ADMIT Internal Medicine; ATTEND Hospitalist
DX: J96.01 Acute respiratory failure with hypoxia (principal); N17.9 Acute kidney failure, unspecified; J44.1 Chronic obstructive pulmonary disease with (acute) exacerbation; E87.1 Hypo-osmolality and hyponatremia; J45.901 Unspecified asthma with (acute) exacerbation; J44.0 Chronic obstructive pulmonary disease with (acute) lower respiratory infection; J20.9 Acute bronchitis, unspecified; K21.9 Gastro-esophageal reflux disease without esophagitis; N18.9 Chronic kidney disease, unspecified; F17.200 Nicotine dependence, unspecified, uncomplicated; I12.9 Hypertensive chronic kidney disease with stage 1 through stage 4 chronic kidney disease, or unspecified chronic kidney disease; E11.22 Type 2 diabetes mellitus with diabetic chronic kidney disease; T50.2X5A Adverse effect of carbonic-anhydrase inhibitors, benzothiadiazides and other diuretics, initial encounter; Y92.238 Other place in hospital as the place of occurrence of the external cause; E78.2 Mixed hyperlipidemia; E11.42 Type 2 diabetes mellitus with diabetic polyneuropathy; Z83.3 Family history of diabetes mellitus; Z79.4 Long term (current) use of insulin
CPT/HCPCS: 36415; 71045; 76770; 80048; 81001; 82436; 82533; 82570; 82947; 82962; 83036; 83930; 83935; 84133; 84156; 84300; 84439; 84443; 84484; 84550; 85007; 85025; 85027; 87040; 93005; 93010; 94640; 94760; G0378; J0456; J1650; J1815; J1956; J2920; J2930; J7030; J7050

== ENCOUNTER 2019-07-13 14:03 | Emergency (ER) | payer MEDICARE ==
--- NOTE | 2019-07-13 14:25 | Emergency Department Report ---
Blank Doc - Documentation Documentation: 78-year-old female that presents with bilateral leg pains, redness, and open s ores. HX of diabetes. This initial assessment/diagnostic orders/clinical plan/treatment(s) is/are subject to change based on patient's health status, clinical progression and re- assessment by fellow clinical providers in the ED. Further treatment and workup at subsequent clinical providers discretion. Patient/guardians urged not to elope from the ED as their condition may be serious if not clinically assessed and managed. Initial orders include: 1- Patient sent to MAIN for further evaluation and treatment 2- labs 3- UA
[2019-07-13 15:33] LABS: Alanine Aminotransferase 18 units/L (7-56); Albumin 3.6 g/dL (3.9-5); BUN/Creatinine Ratio 13; Blood Urea Nitrogen 13 mg/dL (7-17); Calcium 8.9 mg/dL (8.4-10.2); Hemolysis Index 13
[2019-07-13 15:34] LABS: Hematocrit 33.3 % (30.3-42.9); Mean Corpuscular HGB Conc 33 % (30-34); Mean Corpuscular Volume 88 fl (79-97); Platelet Count 353 K/mm3 (140-440); Red Blood Count 3.78 M/mm3 (3.65-5.03); Red Cell Distribution Width 16.2 % (13.2-15.2)
[2019-07-13] MEDS ORDERED: CLEOCIN 600 MG/50 mL 600 MG/50 ML BAG IV ONE (16:09)
--- NOTE | 2019-07-13 16:15 | Emergency Department Report ---
ED Extremity Problem HPI - General Chief complaint: Extremity Problem,Nontraumatic Stated complaint: SKIN COMING OFF LEG/SWOLLEN Time Seen by Provider: 07/13/19 14:24 Source: patient Mode of arrival: Ambulatory Limitations: No Limitations - History of Present Illness Initial comments: Patient is 78 years old female with history of hypertension, diabetes and COPD. Patient presented to the ER accompanied by her granddaughter for evaluation of bilateral lower extremity pain, swelling and tenderness. Patient denied any shortness of breath or chest pain. She also denied any fever or chills. No nausea or vomiting. MD Complaint: extremity pain, extremity swelling Location: bilateral lower extremity Quality: sharp - Related Data Home Medications Medication Instructions Recorded Confirmed Last Taken Lispro Insulin [HumaLOG] See Protocol SUB-Q TID 05/10/18 02/27/19 Unknown Previous Rx's Medication Instructions Recorded Last Taken Type Cetirizine HCl [Zyrtec 10mg tab] 10 mg PO DAILY #30 tablet 03/03/19 Unknown Rx Esomeprazole Magnesium [NexIUM] 40 mg PO QDAY #30 capsule. 03/03/19 Unknown Rx Fluticasone/Salmeterol [Advair 50 mcg IH QDAY 30 Days blst.w.dev 03/03/19 Unknown Rx Diskus 500-50 mcg] Glimepiride [Amaryl] 1 mg PO BID #60 tablet 03/03/19 Unknown Rx Ipratropium/Albuterol Sulfate 500 mcg IH QID 30 Days ampul.neb 03/03/19 Unknown Rx [DUONEB *Not for PRN Use*] Montelukast [Singulair] 10 mg PO QHS #30 tablet 03/03/19 Unknown Rx Pregabalin 75 mg PO TID #90 capsule 03/03/19 Unknown Rx Sodium Bicarbonate 650 mg PO BID #60 tablet 03/03/19 Unknown Rx amLODIPine 10 mg PO DAILY #30 tablet 03/03/19 Unknown Rx buPROPion SR [Wellbutrin SR] 150 mg PO BID #60 tablet 03/03/19 Unknown Rx cefUROXime [Ceftin] 500 mg PO Q12H #10 tablet 03/03/19 Unknown Rx methylPREDNISolone [Medrol 4MG 4 mg PO DAILY #1 tab.ds.pk 03/03/19 Unknown Rx DOSEPAK (21 tabs)] Allergies Allergy/AdvReac Type Severity Reaction Status Date / Time No Known Allergies Allergy Verified 05/16/18 15:25 ED Review of Systems ROS: Stated complaint: SKIN COMING OFF LEG/SWOLLEN Other details as noted in HPI Comment: All other systems reviewed and negative Constitutional: denies: chills, fever Respiratory: denies: cough, shortness of breath, SOB with exertion Cardiovascular: denies: chest pain Gastrointestinal: denies: abdominal pain, nausea, vomiting ED Past Medical Hx - Past Medical History Previous Medical History?: Yes Hx Hypertension: Yes Hx Heart Attack/AMI: No Hx Congestive Heart Failure: No Hx Diabetes: Yes Hx Deep Vein Thrombosis: No Hx Pulmonary Embolism: No Hx GERD: Yes Hx Liver Disease: No Hx Sickle Cell Disease: No Hx Arthritis: Yes Hx Asthma: Yes Hx COPD: Yes Hx Tuberculosis: No Hx HIV: No Additional medical history: HIGH CHOLESTEROL - Surgical History Past Surgical History?: Yes Hx Coronary Stent: No Hx Open Heart Surgery: No Hx Pacemaker: No Hx Internal Defibrillator: No Hx Cholecystectomy: No Hx Appendectomy: No Hx Breast Surgery: No Additional Surgical History: SINUS SURGERY - Social History Smoking Status: Never Smoker Substance Use Type: None - Medications Home Medications: Home Medications Medication Instructions Recorded Confirmed Last Taken Type Lispro Insulin [HumaLOG] See Protocol SUB-Q TID 05/10/18 02/27/19 Unknown History Cetirizine HCl [Zyrtec 10mg tab] 10 mg PO DAILY #30 tablet 03/03/19 Unknown Rx Esomeprazole Magnesium [NexIUM] 40 mg PO QDAY #30 capsule. 03/03/19 Unknown Rx Fluticasone/Salmeterol [Advair 50 mcg IH QDAY 30 Days blst.w.dev 03/03/19 Unknown Rx Diskus 500-50 mcg] Glimepiride [Amaryl] 1 mg PO BID #60 tablet 03/03/19 Unknown Rx Ipratropium/Albuterol Sulfate 500 mcg IH QID 30 Days ampul.neb 03/03/19 Unknown Rx [DUONEB *Not for PRN Use*] Montelukast [Singulair] 10 mg PO QHS #30 tablet 03/03/19 Unknown Rx Pregabalin 75 mg PO TID #90 capsule 03/03/19 Unknown Rx Sodium Bicarbonate 650 mg PO BID #60 tablet 03/03/19 Unknown Rx amLODIPine 10 mg PO DAILY #30 tablet 03/03/19 Unknown Rx buPROPion SR [Wellbutrin SR] 150 mg PO BID #60 tablet 03/03/19 Unknown Rx cefUROXime [Ceftin] 500 mg PO Q12H #10 tablet 03/03/19 Unknown Rx methylPREDNISolone [Medrol 4MG 4 mg PO DAILY #1 tab.ds.pk 03/03/19 Unknown Rx DOSEPAK (21 tabs)] ED Physical Exam - General Limitations: No Limitations General appearance: alert, in no apparent distress - Head Head exam: Present: atraumatic, normocephalic, normal inspection - Eye Eye exam: Present: normal appearance - ENT ENT exam: Present: normal exam, normal orophraynx, mucous membranes moist - Neck Neck exam: Present: normal inspection, full ROM. Absent: tenderness, meningismus, lymphadenopathy, thyromegaly - Respiratory Respiratory exam: Present: normal lung sounds bilaterally - Cardiovascular Cardiovascular Exam: Present: regular rate, normal rhythm, normal heart sounds - GI/Abdominal GI/Abdominal exam: Present: soft, normal bowel sounds. Absent: distended, tenderness, guarding, rebound, rigid, organomegaly, mass, bruit, pulsatile mass, hernia - Extremities Exam Extremities exam: Present: full ROM, tenderness, normal capillary refill, pedal edema, other (bilateral lower extremity swelling with tenderness and redness.). Absent: calf tenderness - Back Exam Back exam: Present: normal inspection, full ROM. Absent: CVA tenderness (R), CVA tenderness (L) - Neurological Exam Neurological exam: Present: alert, oriented X3, CN II-XII intact - Psychiatric Psychiatric exam: Present: normal mood - Skin Skin exam: Present: warm, intact ED Course Vital Signs 07/13/19 14:24 Temperature 97.8 F Pulse Rate 98 H Respiratory 20 Rate Blood Pressure 154/57 O2 Sat by Pulse 94 Oximetry ED Medical Decision Making - Lab Data Result diagrams: 07/13/19 14:43 07/13/19 14:43 - Radiology Data Radiology results: image reviewed - Medical Decision Making Patient is 78 years old female with history of hypertension, diabetes and COPD. Patient presented to the ER accompanied by her granddaughter for evaluation of bilateral lower extremity pain, swelling and tenderness. Patient denied any shortness of breath or chest pain. She also denied any fever or chills. No nausea or vomiting. Labs reviewed and is unremarkable. Bilateral lower extremity Doppler ultrasound is negative for DVT. Patient's symptoms is consistent with cellulitis. Patient received clindamycin 600 mg IV in the ER. Patient given a prescription for clindamycin 300 mg every 8 hours and advised to follow-up with her primary care physician in the next 2-3 days and to return to the ER if symptoms are not improved. Critical care attestation.: If time is entered above; I have spent that time in minutes in the direct care of this critically ill patient, excluding procedure time. ED Disposition Clinical Impression: Cellulitis of leg Disposition: DC-01 TO HOME OR SELFCARE Is pt being admited?: No Condition: Stable Instructions: Cellulitis (ED) Referrals: PRIMARY CARE, [Referring] - 3-5 Days
[2019-07-13 16:54] LABS: Anisocytosis 1+; Basophils % (Manual) 0 % (0.0-1.8); Platelet Estimate Consistent w Auto; Total Cells Counted 100
[2019-07-13 17:20] LABS: Bilirubin,Urine NEG (Negative); Blood,Urine NEG (Negative); Color,Urine Straw (Yellow); Protein,Urine <15 mg/dL mg/dL (Negative); Urobilinogen,Urine < 2.0 mg/dL (<2.0)
[2019-07-13 17:57] VITALS: BP 148/58
--- NOTE | 2019-07-13 18:05 | Vascular Lab Report ---
DUPLEX DOPPLER LOWER EXTREMITY VEINS, BILATERAL INDICATION: BILATERAL LEG SWELLING. TECHNIQUE: Duplex doppler imaging was performed through the veins of both lower extremities using venous corina corey and other maneuvers. COMPARISON: None available. FINDINGS: Right Common Femoral vein: Negative. Right Superficial Femoral vein: Negative. Right Popliteal vein: Negative. Right Calf veins: Negative. Left Common Femoral vein: Negative. Left Superficial Femoral vein: Negative. Left Popliteal vein: Negative. Left Calf veins: Negative. Additional findings: There is a fluid collection at the left knee. Images showing this did not label which part of the knee this is located (medial versus lateral versus posterior). This could be a popl iteal/Hall's cyst. Correlate clinically. IMPRESSION: 1. No sonographic evidence for DVT in either lower extremity. Signer Name: David Nagel MD Signed: 07/13/2019 6:00 PM Workstation Name: [id number]
== END 2019-07-13 18:00 | disposition home or self-care (01) ==
LOC: ED 14:03
DX: L03.116 Cellulitis of left lower limb (principal); L03.115 Cellulitis of right lower limb; I10 Essential (primary) hypertension; E11.9 Type 2 diabetes mellitus without complications; J44.9 Chronic obstructive pulmonary disease, unspecified; K21.9 Gastro-esophageal reflux disease without esophagitis; M19.90 Unspecified osteoarthritis, unspecified site; E78.00 Pure hypercholesterolemia, unspecified; Z79.899 Other long term (current) drug therapy
CPT/HCPCS: 36415; 80053; 81001; 82962; 85007; 85025; 87040; 93970; 96365

== ENCOUNTER 2021-03-24 10:46 | Emergency (ER) | payer MEDICARE ==
[2021-03-24 11:01] VITALS: BP 107/54
== END 2021-03-24 15:01 ==
LOC: ED 10:46
DX: R53.83 Other fatigue (principal); Z53.21 Procedure and treatment not carried out due to patient leaving prior to being seen by health care provider

== ENCOUNTER 2021-03-28 16:26 | Inpatient (IN) | payer MEDICARE ==
--- NOTE | 2021-03-28 17:24 | XRay Report ---
CHEST 2 VIEWS 1711 INDICATION / CLINICAL INFORMATION: suspected sepsis COMPARISON: 02/27/2019 FINDINGS: SUPPORT DEVICES: None. HEART / MEDIASTINUM: No significant abnormality. LUNGS / PLEURA: Artifact overlies the images. Mild increased density is seen in the right base which is asymmetric and was not present previously. This could be artifactual but developing infiltrate is possible and I would suggest follow-up and clinical correlation. No pneumothorax. ADDITIONAL FINDINGS: No significant additional findings. Signer Name: Kike Piña MD Signed: 03/28/2021 5:20 PM Workstation Name: [id number]
[2021-03-28 17:50] LABS: Hematocrit 30.4 % (30.3-42.9); Mean Corpuscular HGB Conc 33 % (30-34); Mean Corpuscular Volume 92 fl (79-97); Platelet Count 309 K/mm3 (140-440); Red Blood Count 3.32 M/mm3 (3.65-5.03); Red Cell Distribution Width 14.9 % (13.2-15.2)
--- NOTE | 2021-03-28 17:56 | Emergency Department Report ---
ED General Adult HPI - General Chief complaint: Weakness Stated complaint: FATIGUE, HASN'T EATEN IN 1 WEEK Time Seen by Provider: 03/28/21 16:41 Source: family Mode of arrival: Ambulatory Limitations: No Limitations - History of Present Illness Initial comments: Patient is 80 years old female with history of COPD, asthma, CHF CVA and dementia. Patient brought to the emergency room by her daughter for evaluation of generalized weakness decreased p.o. intake and cough. Daughter stated that her symptom has been going on for 5 days and her health is declining. Patient is not talking much. Most of the history is from patient daughter. Daughter denied any fever or chills. She also denied any diarrhea or dysuria. Patient found to be tachycardic with a heart rate of 110 and a blood pressure of 90/50. Patient also stated that she had pneumonia 2 months ago. She stated that she had 2 short of [employer] COVID-19 vaccine in October. Sepsis protocol initiated and patient started on normal saline and Levaquin. Severity scale (0 -10): 0 - Related Data Home Medications Medication Instructions Recorded Confirmed Last Taken Lispro Insulin [HumaLOG] See Protocol SUB-Q TID 05/10/18 02/27/19 Unknown Previous Rx's Medication Instructions Recorded Last Taken Type Cetirizine HCl [Zyrtec 10mg tab] 10 mg PO DAILY #30 tablet 03/03/19 Unknown Rx Esomeprazole Magnesium [NexIUM] 40 mg PO QDAY #30 capsule. 03/03/19 Unknown Rx Fluticasone/Salmeterol [Advair 50 mcg IH QDAY 30 Days blst.w.dev 03/03/19 Unknown Rx Diskus 500-50 mcg] Glimepiride [Amaryl] 1 mg PO BID #60 tablet 03/03/19 Unknown Rx Ipratropium/Albuterol Sulfate 500 mcg IH QID 30 Days ampul.neb 03/03/19 Unknown Rx [DUONEB *Not for PRN Use*] Montelukast [Singulair] 10 mg PO QHS #30 tablet 03/03/19 Unknown Rx Pregabalin 75 mg PO TID #90 capsule 03/03/19 Unknown Rx Sodium Bicarbonate 650 mg PO BID #60 tablet 03/03/19 Unknown Rx amLODIPine 10 mg PO DAILY #30 tablet 03/03/19 Unknown Rx buPROPion SR [Wellbutrin SR] 150 mg PO BID #60 tablet 03/03/19 Unknown Rx cefUROXime [Ceftin] 500 mg PO Q12H #10 tablet 03/03/19 Unknown Rx methylPREDNISolone [Medrol 4MG 4 mg PO DAILY #1 tab.ds.pk 03/03/19 Unknown Rx DOSEPAK (21 tabs)] Clindamycin [Clindamycin CAP] 300 mg PO Q8H #30 cap 07/13/19 Unknown Rx Allergies Allergy/AdvReac Type Severity Reaction Status Date / Time No Known Allergies Allergy Verified 03/28/21 16:27 ED Review of Systems ROS: Stated complaint: FATIGUE, HASN'T EATEN IN 1 WEEK Other details as noted in HPI Comment: All other systems reviewed and negative Constitutional: denies: chills, fever Respiratory: cough. denies: shortness of breath, SOB with exertion, SOB at rest, wheezing Cardiovascular: palpitations. denies: chest pain Gastrointestinal: nausea. denies: abdominal pain, vomiting, diarrhea, constipation, hematemesis, melena, hematochezia Musculoskeletal: denies: back pain Neurological: weakness. denies: headache, numbness, paresthesias, confusion, abnormal gait ED Past Medical Hx - Past Medical History Hx Hypertension: Yes Hx CVA: Yes Hx Heart Attack/AMI: No Hx Congestive Heart Failure: No Hx Diabetes: Yes Hx Deep Vein Thrombosis: No Hx Pulmonary Embolism: No Hx GERD: Yes Hx Liver Disease: No Hx Sickle Cell Disease: No Hx Arthritis: Yes Hx Asthma: Yes Hx COPD: Yes Hx Tuberculosis: No Hx HIV: No Additional medical history: HIGH CHOLESTEROL , seasonal allergies - Surgical History Hx Coronary Stent: No Hx Open Heart Surgery: No Hx Pacemaker: No Hx Internal Defibrillator: No Hx Cholecystectomy: No Hx Appendectomy: No Hx Breast Surgery: No Additional Surgical History: SINUS SURGERY - Social History Smoking Status: Never Smoker Substance Use Type: None - Medications Home Medications: Home Medications Medication Instructions Recorded Confirmed Last Taken Type Lispro Insulin [HumaLOG] See Protocol SUB-Q TID 05/10/18 02/27/19 Unknown History Cetirizine HCl [Zyrtec 10mg tab] 10 mg PO DAILY #30 tablet 03/03/19 Unknown Rx Esomeprazole Magnesium [NexIUM] 40 mg PO QDAY #30 capsule. 03/03/19 Unknown Rx Fluticasone/Salmeterol [Advair 50 mcg IH QDAY 30 Days blst.w.dev 03/03/19 Unknown Rx Diskus 500-50 mcg] Glimepiride [Amaryl] 1 mg PO BID #60 tablet 03/03/19 Unknown Rx Ipratropium/Albuterol Sulfate 500 mcg IH QID 30 Days ampul.neb 03/03/19 Unknown Rx [DUONEB *Not for PRN Use*] Montelukast [Singulair] 10 mg PO QHS #30 tablet 03/03/19 Unknown Rx Pregabalin 75 mg PO TID #90 capsule 03/03/19 Unknown Rx Sodium Bicarbonate 650 mg PO BID #60 tablet 03/03/19 Unknown Rx amLODIPine 10 mg PO DAILY #30 tablet 03/03/19 Unknown Rx buPROPion SR [Wellbutrin SR] 150 mg PO BID #60 tablet 03/03/19 Unknown Rx cefUROXime [Ceftin] 500 mg PO Q12H #10 tablet 03/03/19 Unknown Rx methylPREDNISolone [Medrol 4MG 4 mg PO DAILY #1 tab.ds.pk 03/03/19 Unknown Rx DOSEPAK (21 tabs)] Clindamycin [Clindamycin CAP] 300 mg PO Q8H #30 cap 07/13/19 Unknown Rx ED Physical Exam - General Limitations: No Limitations General appearance: alert, in no apparent distress - Head Head exam: Present: atraumatic, normocephalic, normal inspection - ENT ENT exam: Present: mucous membranes dry - Neck Neck exam: Present: normal inspection, full ROM. Absent: tenderness, meningismus - Respiratory Respiratory exam: Present: rales. Absent: respiratory distress, wheezes, rhonchi, chest wall tenderness, accessory muscle use, decreased breath sounds, prolonged expiratory - Cardiovascular Cardiovascular Exam: Present: tachycardia - GI/Abdominal GI/Abdominal exam: Present: soft, normal bowel sounds. Absent: distended, tenderness, guarding, rebound, rigid, organomegaly, mass, bruit, pulsatile mass, hernia - Extremities Exam Extremities exam: Present: normal inspection, full ROM, normal capillary refill - Back Exam Back exam: Present: normal inspection. Absent: CVA tenderness (R), CVA tenderness (L) - Neurological Exam Neurological exam: Present: alert, CN II-XII intact ED Course Vital Signs 03/28/21 16:36 Temperature 97.1 F L Pulse Rate 110 H Respiratory 18 Rate Blood Pressure 91/51 [Right] O2 Sat by Pulse 96 Oximetry ED Medical Decision Making - Lab Data Result diagrams: 03/28/21 17:35 03/28/21 17:35 - EKG Data -: EKG Interpreted by Me EKG shows normal: sinus rhythm Rate: tachycardia - EKG Data Interpretation: no acute changes - Radiology Data Radiology results: report reviewed - Medical Decision Making Patient is 80 years old female with history of COPD, asthma, CHF CVA and dementia. Patient brought to the emergency room by her daughter for evaluation of generalized weakness decreased p.o. intake and cough. Daughter stated that her symptom has been going on for 5 days and her health is declining. Patient is not talking much. Most of the history is from patient daughter. Daughter denied any fever or chills. She also denied any diarrhea or dysuria. Patient found to be tachycardic with a heart rate of 110 and a blood pressure of 90/50. Patient also stated that she had pneumonia 2 months ago. She stated that she had 2 short of [employer] COVID-19 vaccine in October. Sepsis protocol initiated and patient started on normal saline and Levaquin. EKG shows sinus tachycardia. Labs reviewed and showed a potassium of 5.9, creatinine is 5.6 and BUN of 80. Patient baseline creatinine is 1.2. Patient is started on normal saline. I discussed the patient with Dr. Bradley, he agreed to admit the patient to medical service for further management. Critical Care Time: Yes Critical care time in (mins) excluding proc time.: 30 Critical care attestation.: If time is entered above; I have spent that time in minutes in the direct care of this critically ill patient, excluding procedure time. ED Disposition Clinical Impression: Sepsis, Right lower lobe pneumonia, Acute renal failure, Acute hyperkalemia Disposition: OP ADMIT IP TO THIS HOSP Is pt being admited?: Yes Condition: Stable Instructions: Bacterial Pneumonia (ED)
[2021-03-28 18:10] LABS: Albumin 3.5 g/dL (3.9-5); Calcium 9.1 mg/dL (8.4-10.2)
[2021-03-28] MEDS ORDERED: SODIUM CHLORIDE 0.9% 1000 ML 1,000 ML ONE (18:18)
[2021-03-28] MEDS ORDERED: SODIUM CHLORIDE 0.9% 1000 ML 1,000 ML IV ONE (18:20)
[2021-03-28] MEDS ORDERED: ONDANSETRON 4 MG/2 ML INJ IV ONE (18:20)
--- NOTE | 2021-03-28 18:44 | History and Physical Report ---
History of Present Illness Chief complaint: She is not eating History of present illness: 80 YO Female with COPD, Vascular Dementia with Behavioral Disturbance, Cerebral Atherosclerosis, CVA, Diastolic CHF, DM, HTN, GERD, OA, Asthma, HLD, Seasonal Allergies presents to ED for evaluation. Patient has diminished cognition and is unable to provide history. Patient daughter is at bedside during exam and interview and provides history. Patient daughter reports that patient has experienced increased weakness and confusion over the past 60 days with progressively worsening symptoms over the past 30 days. Patient is currently bedbound and nonambulatory. Patient has a palliative performance score 30%. Patient requires 6/6 assistance with activities of daily living. Patient is unable to make needs known or follow simple commands. Patient daughter reports lack of oral intake over the past 5 days. Patient transported to [facility] via private vehicle for further care and evaluation of the aforementioned symptoms. The patient was seen and evaluated in the emergency department. All lab and imaging studies reviewed. The patient was found to have acute kidney injury with acute tubular necrosis, metabolic encephalopathy, volume depletion. Patient admitted to medical floor and treated with IV fluid resuscitation therapy and supportive care. No reports of fever, chills, chest pain, palpitation, productive cough, skin rash, recent ill contacts, or known exposure to COVID-19. Prior admission on 02/26/2019 reviewed. All medication listed at time of admission has been reconciled. Advanced care planning conducted in the emergency department. Past History Past Medical History: COPD, diabetes, GERD, hepatitis, hypertension, hyperlipidemia, stroke Past Surgical History: Other (Sinus surgery) Social history: single, lives with family. denies: smoking, alcohol abuse, prescription drug abuse Family history: diabetes, hypertension Medications and Allergies Allergies Allergy/AdvReac Type Severity Reaction Status Date / Time No Known Allergies Allergy Verified 03/28/21 16:27 Home Medications Medication Instructions Recorded Confirmed Last Taken Type Lispro Insulin [HumaLOG] See Protocol SUB-Q TID 05/10/18 02/27/19 Unknown History Cetirizine HCl [Zyrtec 10mg tab] 10 mg PO DAILY #30 tablet 03/03/19 Unknown Rx Esomeprazole Magnesium [NexIUM] 40 mg PO QDAY #30 capsule. 03/03/19 Unknown Rx Fluticasone/Salmeterol [Advair 50 mcg IH QDAY 30 Days blst.w.dev 03/03/19 Unknown Rx Diskus 500-50 mcg] Glimepiride [Amaryl] 1 mg PO BID #60 tablet 03/03/19 Unknown Rx Ipratropium/Albuterol Sulfate 500 mcg IH QID 30 Days ampul.neb 03/03/19 Unknown Rx [DUONEB *Not for PRN Use*] Montelukast [Singulair] 10 mg PO QHS #30 tablet 03/03/19 Unknown Rx Pregabalin 75 mg PO TID #90 capsule 03/03/19 Unknown Rx Sodium Bicarbonate 650 mg PO BID #60 tablet 03/03/19 Unknown Rx amLODIPine 10 mg PO DAILY #30 tablet 03/03/19 Unknown Rx buPROPion SR [Wellbutrin SR] 150 mg PO BID #60 tablet 03/03/19 Unknown Rx cefUROXime [Ceftin] 500 mg PO Q12H #10 tablet 03/03/19 Unknown Rx methylPREDNISolone [Medrol 4MG 4 mg PO DAILY #1 tab.ds.pk 03/03/19 Unknown Rx DOSEPAK (21 tabs)] Clindamycin [Clindamycin CAP] 300 mg PO Q8H #30 cap 07/13/19 Unknown Rx Active Meds: Active Medications Levofloxacin/Dextrose (Levaquin 500mg/100ml) 500 mg in 100 mls @ 100 mls/hr IV ONCE ONE; Protocol Stop: 03/28/21 18:50 Sodium Chloride (Nacl 0.9% 1000 Ml) 1,000 mls @ 250 mls/hr IV ONCE ONE Stop: 03/28/21 22:19 Review of Systems ROS unobtainable: due to mental status Exam - Constitutional Vitals: Temp Pulse Resp BP Pulse Ox 97.1 F L 110 H 18 91/51 96 03/28/21 16:36 03/28/21 16:36 03/28/21 16:36 03/28/21 16:36 03/28/21 16:36 General appearance: Present: mild distress, cachectic - EENT Eyes: Present: PERRL ENT: clear oral mucosa, hearing decreased - Neck Neck: Present: supple, normal ROM - Respiratory Respiratory effort: labored Respiratory: bilateral: diminished - Cardiovascular Heart Sounds: Present: S1 & S2. Absent: rub, click - Extremities Extremities: pulses symmetrical, No edema Peripheral Pulses: within normal limits - Abdominal General gastrointestinal: Present: soft, non-tender, non-distended, normal bowel sounds Female genitourinary: Present: normal - Integumentary Integumentary: Present: clear, dry, clammy, decreased turgor - Musculoskeletal Musculoskeletal: generalized weakness - Psychiatric Psychiatric: no appropriate mood/affect, no intact judgment & insight, no memory intact - Neurologic Neurologic: CNII-XII intact, no focal deficits, moves all extremities, no gait normal HEART Score - HEART Score Troponin: Troponin T 0.206 ng/mL (0.00-0.029) H* 03/28/21 17:35 Results - Labs CBC & Chem 7: 03/28/21 17:35 03/28/21 17:35 Labs: Abnormal lab results 03/28/21 03/28/21 Range/Units 17:35 17:35 RBC 3.32 L (3.65-5.03) M/mm3 Hgb 10.0 L (10.1-14.3) gm/dl Potassium 5.9 H (3.6-5.0) mmol/L Chloride 114.9 H (98-107) mmol/L Carbon Dioxide 8 L* (22-30) mmol/L BUN 80 H (7-17) mg/dL Creatinine 5.6 H (0.6-1.2) mg/dL Glucose 113 H (65-100) mg/dL Alkaline Phosphatase 151 H (35-129) units/L Troponin T 0.206 H* (0.00-0.029) ng/mL Albumin 3.5 L (3.9-5) g/dL Assessment and Plan - Patient Problems (1) Acute kidney injury (ELIZA) with acute tubular necrosis (ATN) Status: Acute Plan to address problem: BMP, IV fluid resuscitation therapy, monitor urine output every shift, monitor fluid balance, repeat BMP in a.m. to monitor GFR as well as serum creatinine. (2) Vascular dementia with behavioral disturbance Status: Acute Plan to address problem: Verbal prompting, verbal redirection, supportive care. Benzodiazepine therapy as clinically indicated, pain control. (3) Cerebral atherosclerosis Status: Acute Plan to address problem: Antiplatelet therapy as clinically indicated, supportive care, risk factor reduction (4) Volume depletion Status: Acute Plan to address problem: IV fluid resuscitation therapy, monitor urine output every shift (5) CHF (congestive heart failure) Status: Acute Qualifiers: Heart failure type: diastolic Heart failure chronicity: chronic Qualified Code(s): I50.32 - Chronic diastolic (congestive) heart failure Plan to address problem: Blood pressure control, supportive care, fluid restriction, monitor fluid balance. (6) COPD (chronic obstructive pulmonary disease) Status: Acute Plan to address problem: Supplemental oxygen as clinically indicated, supportive care, continue medical management. (7) DVT prophylaxis Status: Acute Plan to address problem: SCD to bilateral lower extremities while in bed (8) Advance care planning Status: Acute Plan to address problem: Disease education conducted, care plan discussed, diagnoses discussed, prognosis discussed, patient is full code. Patient daughter Whitney Morales informed of patient prognosis. Patient daughter elects to have home hospice evaluation. Hospice care team notified and evaluation has been established. Patient daughter acknowledges understanding and agreement with care plan, +30 minutes.
[2021-03-28 18:48] LABS: Chol/HDL Ratio 4.65 %
[2021-03-28 18:52] LABS: Total Cells Counted 100
[2021-03-28 18:53] LABS: Anisocytosis 1+; Platelet Estimate Consistent w Auto
[2021-03-28] MEDS ORDERED: ACETAMINOPHEN 325 MG TAB PO PRN (19:23)
[2021-03-28] MEDS ORDERED: ALBUTEROL 2.5 MG/3 ML NEBU IH PRN (19:23)
[2021-03-28] MEDS ORDERED: oxyCODONE /ACETAMINOPHEN 5-325MG TAB PO PRN (19:23)
[2021-03-28] MEDS ORDERED: ONDANSETRON 4 MG/2 ML INJ IV PRN (19:23)
[2021-03-28] MEDS ORDERED: HYDROmorphone 1 MG/1 ML INJ IV PRN (19:23)
[2021-03-28] MEDS: PREGABALIN 75 MG CAP PO SCH (20:17)
[2021-03-28] MEDS ORDERED: SODIUM CHLORIDE 0.9% 1000 ML 1,000 ML IV SCH (20:30)
[2021-03-28] MEDS: BUDESONIDE 0.5 MG/2 ML NEBU IH SCH (20:38)
[2021-03-28] MEDS: IPRATROPIUM/ALBUTEROL SULFATE 3 ML AMPUL.NEB IH SCH (20:38)
[2021-03-28] MEDS: ARFORMOTEROL 15 MCG/2 ML NEBU IH SCH (20:39)
[2021-03-28] MEDS: buPROPion SR 150 MG TAB PO SCH (22:14)
[2021-03-28] MEDS: MONTELUKAST 10 MG TAB PO SCH (23:18)
[2021-03-28] MEDS: SODIUM BICARBONATE 650 MG TAB PO SCH (23:18)
[2021-03-29] MEDS: IPRATROPIUM/ALBUTEROL SULFATE 3 ML AMPUL.NEB IH SCH ×4 (05:36→21:24)
[2021-03-29 08:19] LABS: Calcium 8.6 mg/dL (8.4-10.2)
[2021-03-29] MEDS: BUDESONIDE 0.5 MG/2 ML NEBU IH SCH ×2 (08:46→21:24)
[2021-03-29] MEDS: ARFORMOTEROL 15 MCG/2 ML NEBU IH SCH ×2 (08:46→21:24)
--- NOTE | 2021-03-29 08:47 | Progress Note ---
Assessment and Plan Assessment and plan: --Hyperkalemia; potassium today is 5.8 Calcium gluconate 1 g IV, Kayexalate 30 g 1 dose Consult nephrology, monitor electrolytes --Metabolic acidosis; due to acute kidney injury Treat the underlying cause, monitor closely and adjust as needed --Acute kidney injury (ELIZA) with acute tubular necrosis (ATN) Gentle hydration, monitor renal function, avoid nephrotoxins. Nephrology consulted --Non-ST elevation WI; type II In the setting of acute kidney injury Closely monitor --Vascular dementia with behavioral disturbance Status: Acute . Accu-Cheks. Supportive care Psych evaluation if needed, supportive care --Volume depletion/ELIZA Status: Acute IV fluid resuscitation therapy, monitor urine output every shift. --CHF (congestive heart failure)/fluid overload Status: Acute Blood pressure control, IV diuretics supportive care, fluid restriction, monitor fluid balance. -- COPD (chronic obstructive pulmonary disease) Status: Acute Supplemental oxygen as clinically indicated, supportive care, continue medical management. --DVT prophylaxis Status: Acute SCD to bilateral lower extremities while in bed --Full CODE STATUS --Advance care planning Status: Acute Disease education conducted, care plan discussed, diagnoses discussed, prognosis discussed, patient is full code. Patient daughter Whitney Morales informed of patient prognosis. Patient daughter elects to have home hospice evaluation. Hospice care team notified and evaluation has been established. Patient daughter acknowledges understanding and agreement with care plan, --discharge planning; per case management daughter wants to try home hospice Place hospice consult We will closely monitor the patient and adjust the management as needed Follow nephrology evaluation and recommendations Disposition; follow clinically, follow consultants recommendation, discharge when patient is stable History Interval history: I have seen and examined the patient at the bedside Patient's chart and medications reviewed, acute kidney injury Admitted with failure to thrive, poor oral intake and generalized weakness Vital signs noted Hospitalist Physical - Constitutional Vitals: Temp Pulse Resp BP Pulse Ox 98.2 F 107 H 16 83/42 94 03/29/21 04:04 03/29/21 04:04 03/29/21 04:04 03/29/21 04:04 03/29/21 04:04 General appearance: Present: mild distress, cachectic - EENT Eyes: Present: PERRL, EOM intact - Neck Neck: Present: supple, normal ROM - Respiratory Respiratory effort: normal Respiratory: bilateral: diminished, negative: rales, rhonchi, wheezing - Cardiovascular Rhythm: regular Heart Sounds: Present: S1 & S2 - Extremities Extremities: no ischemia, No edema - Abdominal General gastrointestinal: soft, non-tender, non-distended, normal bowel sounds - Integumentary Integumentary: Present: clear, warm - Psychiatric Psychiatric: appropriate mood/affect, cooperative - Neurologic Neurologic: CNII-XII intact, moves all extremities HEART Score - HEART Score Troponin: Troponin T 0.206 ng/mL (0.00-0.029) H* 03/28/21 17:35 Results - Labs CBC & Chem 7: 03/28/21 17:35 03/29/21 16:34 Labs: Laboratory Last Values WBC 9.6 K/mm3 (4.5-11.0) 03/28/21 17:35 RBC 3.32 M/mm3 (3.65-5.03) L 03/28/21 17:35 Hgb 10.0 gm/dl (10.1-14.3) L 03/28/21 17:35 Hct 30.4 % (30.3-42.9) 03/28/21 17:35 MCV 92 fl (79-97) 03/28/21 17:35 MCH 30 pg (28-32) 03/28/21 17:35 MCHC 33 % (30-34) 03/28/21 17:35 RDW 14.9 % (13.2-15.2) 03/28/21 17:35 Plt Count 309 K/mm3 (140-440) 03/28/21 17:35 Eos % (Auto) Reel Film Inspector 03/28/21 17:35 Add Manual Diff Complete 03/28/21 17:35 Total Counted 100 03/28/21 17:35 Seg Neuts % (Manual) 62.0 % (40.0-70.0) 03/28/21 17:35 Lymphocytes % (Manual) 15.0 % (13.4-35.0) 03/28/21 17:35 Monocytes % (Manual) 3.0 % (0.0-7.3) 03/28/21 17:35 Eosinophils % (Manual) 18.0 % (0.0-4.3) H 03/28/21 17:35 Basophils % (Manual) 2.0 % (0.0-1.8) H 03/28/21 17:35 Nucleated RBC % Not Reportable 03/28/21 17:35 Seg Neutrophils # Man 6.0 K/mm3 (1.8-7.7) 03/28/21 17:35 Band Neutrophils # 0.0 K/mm3 03/28/21 17:35 Lymphocytes # (Manual) 1.4 K/mm3 (1.2-5.4) 03/28/21 17:35 Abs React Lymphs (Man) 0.0 K/mm3 03/28/21 17:35 Monocytes # (Manual) 0.3 K/mm3 (0.0-0.8) 03/28/21 17:35 Eosinophils # (Manual) 1.7 K/mm3 (0.0-0.4) H 03/28/21 17:35 Basophils # (Manual) 0.2 K/mm3 (0.0-0.1) H 03/28/21 17:35 Metamyelocytes # 0.0 K/mm3 03/28/21 17:35 Myelocytes # 0.0 K/mm3 03/28/21 17:35 Promyelocytes # 0.0 K/mm3 03/28/21 17:35 Blast Cells # 0.0 K/mm3 03/28/21 17:35 WBC Morphology Not Reportable 03/28/21 17:35 Hypersegmented Neuts Not Reportable 03/28/21 17:35 Hyposegmented Neuts Not Reportable 03/28/21 17:35 Hypogranular Neuts Not Reportable 03/28/21 17:35 Smudge Cells Not Reportable 03/28/21 17:35 Toxic Granulation Not Reportable 03/28/21 17:35 Toxic Vacuolation Not Reportable 03/28/21 17:35 Dohle Bodies Not Reportable 03/28/21 17:35 Pelger-Huet Anomaly Not Reportable 03/28/21 17:35 Elaina Rods Not Reportable 03/28/21 17:35 Platelet Estimate Consistent w auto 03/28/21 17:35 Clumped Platelets Not Reportable 03/28/21 17:35 Plt Clumps, EDTA Not Reportable 03/28/21 17:35 Large Platelets Not Reportable 03/28/21 17:35 Giant Platelets Not Reportable 03/28/21 17:35 Platelet Satelliting Not Reportable 03/28/21 17:35 Plt Morphology Comment Not Reportable 03/28/21 17:35 RBC Morphology Not Reportable 03/28/21 17:35 Dimorphic RBCs Not Reportable 03/28/21 17:35 Polychromasia Not Reportable 03/28/21 17:35 Hypochromasia Not Reportable 03/28/21 17:35 Poikilocytosis Not Reportable 03/28/21 17:35 Anisocytosis 1+ 03/28/21 17:35 Microcytosis Not Reportable 03/28/21 17:35 Macrocytosis Not Reportable 03/28/21 17:35 Spherocytes Not Reportable 03/28/21 17:35 Pappenheimer Bodies Not Reportable 03/28/21 17:35 Sickle Cells Not Reportable 03/28/21 17:35 Target Cells Not Reportable 03/28/21 17:35 Tear Drop Cells Not Reportable 03/28/21 17:35 Ovalocytes Not Reportable 03/28/21 17:35 Helmet Cells Not Reportable 03/28/21 17:35 [place] Bodies Not Reportable 03/28/21 17:35 [place] Rings Not Reportable 03/28/21 17:35 [place] Cells Not Reportable 03/28/21 17:35 Bite Cells Not Reportable 03/28/21 17:35 Crenated Cell Not Reportable 03/28/21 17:35 Elliptocytes Not Reportable 03/28/21 17:35 Acanthocytes (Spur) Not Reportable 03/28/21 17:35 Rouleaux Not Reportable 03/28/21 17:35 Hemoglobin C Crystals Not Reportable 03/28/21 17:35 Schistocytes Not Reportable 03/28/21 17:35 Malaria parasites Not Reportable 03/28/21 17:35 Charles Bodies Not Reportable 03/28/21 17:35 Hem Pathologist Commnt No 03/28/21 17:35 Sodium 139 mmol/L (137-145) 03/29/21 07:31 Potassium 5.8 mmol/L (3.6-5.0) H 03/29/21 07:31 Chloride 112.4 mmol/L (98-107) H 03/29/21 07:31 Carbon Dioxide 12 mmol/L (22-30) L 03/29/21 07:31 Anion Gap 20 mmol/L 03/29/21 07:31 BUN 73 mg/dL (7-17) H 03/29/21 07:31 Creatinine 5.2 mg/dL (0.6-1.2) H 03/29/21 07:31 Estimated GFR 10 ml/min 03/29/21 07:31 BUN/Creatinine Ratio 14 % 03/29/21 07:31 Glucose 82 mg/dL (65-100) 03/29/21 07:31 Lactic Acid 0.60 mmol/L (0.7-2.0) L 03/28/21 20:04 Calcium 8.6 mg/dL (8.4-10.2) 03/29/21 07:31 Total Bilirubin 0.40 mg/dL (0.1-1.2) 03/28/21 17:35 AST 12 units/L (5-40) 03/28/21 17:35 ALT 8 units/L (7-56) 03/28/21 17:35 Alkaline Phosphatase 151 units/L (35-129) H 03/28/21 17:35 Troponin T 0.206 ng/mL (0.00-0.029) H* 03/28/21 17:35 Total Protein 7.6 g/dL (6.3-8.2) 03/28/21 17:35 Albumin 3.5 g/dL (3.9-5) L 03/28/21 17:35 Albumin/Globulin Ratio 0.9 % 03/28/21 17:35 Triglycerides 182 mg/dL (2-149) H 03/28/21 17:35 Cholesterol 149 mg/dL (50-199) 03/28/21 17:35 LDL Cholesterol Direct 78 mg/dL (50-130) 03/28/21 17:35 HDL Cholesterol 32 mg/dL (40-59) L 03/28/21 17:35 Cholesterol/HDL Ratio 4.65 % 03/28/21 17:35 Microbiology: Microbiology 03/28/21 17:35 Peripheral/Venous Blood Culture - Preliminary Culture in Progress 03/28/21 17:35 Peripheral/Venous Blood Culture - Preliminary Culture in Progress Cantu/IV: Voiding Method Diaper Active Medications - Current Medications Current Medications: Generic Name Dose Route Start Last Admin Trade Name Freq PRN Reason Stop Dose Admin Acetaminophen 650 mg 03/28/21 19:23 Acetaminophen 325 Mg Tab PO Q4H PRN Pain MILD(1-3)/Fever >100.5/HILARIO Albuterol 2.5 mg 03/28/21 19:23 Albuterol 2.5 Mg/3 Ml Nebu IH Q4HRT PRN Shortness Of Breath Albuterol/Ipratropium 1 ampul 03/28/21 20:00 03/29/21 05:36 Ipratropium/Albuterol Sulfate 3 Ml Ampul.Neb IH Not Given Q6HRT JEAN-PAUL Arformoterol Tartrate 15 mcg 03/28/21 20:00 03/28/21 20:39 Arformoterol 15 Mcg/2 Ml Nebu IH 15 mcg Q12HRT JEAN-PAUL Administration Budesonide 1 mg 03/28/21 20:00 03/28/21 20:38 Budesonide 0.5 Mg/2 Ml Nebu IH 1 mg Q12HRT JEAN-PAUL Administration Bupropion HCl 150 mg 03/28/21 22:00 03/28/21 22:14 Bupropion Sr 150 Mg Tab PO 150 mg BID JEAN-PAUL Administration Cetirizine HCl 10 mg 03/29/21 10:00 Cetirizine 10 Mg Tab PO DAILY JEAN-PAUL Hydromorphone HCl 0.5 mg 03/28/21 19:23 03/28/21 23:19 Hydromorphone 1 Mg/1 Ml Inj IV 0.5 mg Q12H PRN Administration Pain , Severe (7-10) Sodium Chloride 1,000 mls @ 100 mls/hr 03/28/21 20:30 03/29/21 06:25 Nacl 0.9% 1000 Ml IV 100 mls/hr DIRECT JEAN-PAUL Administration Montelukast Sodium 10 mg 03/28/21 22:00 03/28/21 23:18 Montelukast 10 Mg Tab PO 10 mg QHS JEAN-PAUL Administration Ondansetron HCl 4 mg 03/28/21 19:23 Ondansetron 4 Mg/2 Ml Inj IV Q8H PRN Nausea And Vomiting Oxycodone/Acetaminophen 1 tab 03/28/21 19:23 Oxycodone /Acetaminophen 5-325mg Tab PO Q8H PRN Pain, Moderate (4-6) Pantoprazole Sodium 40 mg 03/29/21 10:00 Pantoprazole 40 Mg Tab PO DAILY JEAN-PAUL Pregabalin 75 mg 03/28/21 20:00 03/28/21 20:17 Pregabalin 75 Mg Cap PO 75 mg TID JEAN-PAUL Administration Sodium Bicarbonate 650 mg 03/28/21 22:00 03/28/21 23:18 Sodium Bicarbonate 650 Mg Tab PO 650 mg BID JEAN-PAUL Administration Sodium Chloride 10 ml 03/28/21 22:00 03/28/21 22:00 Sodium Chloride 0.9% 10 Ml Flush Syringe IV 10 ml BID JEAN-PAUL Administration Sodium Chloride 10 ml 03/28/21 19:23 Sodium Chloride 0.9% 10 Ml Flush Syringe IV PRN PRN LINE FLUSH
[2021-03-29] MEDS ORDERED: SODIUM POLYSTYRENE 15 GM/60 ML ORAL LIQD PO SCH (09:00)
[2021-03-29 09:51] LABS: Creatine Kinase MB 3.9 ng/mL (0.0-4.0)
[2021-03-29] MEDS ORDERED: NON-FORMULARY EACH (Fluticasone/Salmeterol [Advair Diskus 500-50 Mcg] 1 EACH Blst.W.Dev) IH SCH (10:00)
[2021-03-29] MEDS ORDERED: CALCIUM GLUCONATE 1,000 MG in SODIUM CHLORIDE 0.9% 100 ML IV ONE (10:00)
[2021-03-29] MEDS ORDERED: NON-FORMULARY EACH (Esomeprazole Magnesium [Nexium] 40 MG Capsule.Dr) PO SCH (10:00)
[2021-03-29] MEDS: PANTOPRAZOLE 40 MG TAB PO SCH (10:10)
[2021-03-29] MEDS: ASPIRIN 81 MG TAB CHEW PO SCH (10:10)
[2021-03-29] MEDS: CETIRIZINE 10 MG TAB PO SCH (10:10)
[2021-03-29] MEDS: PREGABALIN 75 MG CAP PO SCH ×3 (10:10→21:23)
[2021-03-29] MEDS: SERTRALINE 50 MG TAB PO SCH (10:10)
[2021-03-29] MEDS: SODIUM BICARBONATE 650 MG TAB PO SCH ×2 (10:10→21:22)
[2021-03-29] MEDS: buPROPion SR 150 MG TAB PO SCH ×2 (11:56→21:23)
--- NOTE | 2021-03-29 12:26 | Consultation ---
History of Present Illness - Reason for Consult Consult date: 03/29/21 acute renal failure, hyperkalemia, metabolic acidosis Requesting physician: JOSELYN CONTRERAS - History of Present Illness 80 YO Female with COPD, Vascular Dementia with Behavioral Disturbance, Cerebral Atherosclerosis, CVA, Diastolic CHF, DM, HTN, GERD, OA, Asthma, HLD, Seasonal Allergies presents to ED for evaluation. Patient has diminished cognition and is unable to provide history. Patient daughter is at bedside during exam and interview and provides history. Patient daughter reports that patient has experienced increased weakness and confusion over the past 60 days with progressively worsening symptoms over the past 30 days. Patient is currently bedbound and nonambulatory. Patient has a palliative performance score 30%. Patient requires 6/6 assistance with activities of daily living. Patient is unable to make needs known or follow simple commands. Patient daughter reports lack of oral intake over the past 5 days. Patient transported to [facility] via private vehicle for further care and evaluation of the aforementioned symptoms. The patient was seen and evaluated in the emergency department. All lab and imaging studies reviewed. The patient was found to have acute kidney injury with acute tubular necrosis, metabolic encephalopathy, volume depletion. Patient admitted to medical floor and treated with IV fluid resuscitation therapy and supportive care. No reports of fever, chills, chest pain, palpitation, productive cough, skin rash, recent ill contacts, or known exposure to COVID-19. Prior admission on 02/26/2019 reviewed. All medication listed at time of admission has been reconciled. Advanced care planning conducted in the emergency department. Past History Past Medical History: COPD, diabetes, GERD, hepatitis, hypertension, hyperlipidemia, stroke Past Surgical History: Other (Sinus surgery) Social history: single, lives with family. denies: smoking, alcohol abuse, prescription drug abuse Family history: diabetes, hypertension Review of Systems ROS unobtainable: due to mental status Past History Past Medical History: COPD, diabetes, GERD, hepatitis, hypertension, hyperlipidemia, stroke Past Surgical History: Other (Sinus surgery) Social history: single, lives with family. denies: smoking, alcohol abuse, prescription drug abuse Family history: diabetes, hypertension Medications and Allergies Allergies Allergy/AdvReac Type Severity Reaction Status Date / Time No Known Allergies Allergy Verified 03/28/21 16:27 Home Medications Medication Instructions Recorded Confirmed Last Taken Type Lispro Insulin [HumaLOG] See Protocol SUB-Q TID 05/10/18 02/27/19 Unknown History Montelukast [Singulair] 10 mg PO QHS #30 tablet 03/03/19 03/28/21 Unknown Rx Pregabalin 75 mg PO TID #90 capsule 03/03/19 03/28/21 Unknown Rx amLODIPine 10 mg PO DAILY #30 tablet 03/03/19 03/28/21 Unknown Rx buPROPion SR [Wellbutrin SR] 150 mg PO BID #60 tablet 03/03/19 03/28/21 Unknown Rx Aspirin [Aspirin BABY CHEW TAB] 81 mg PO QDAY 03/28/21 03/28/21 Unknown History Donepezil HCl 03/28/21 Unknown History Novolin 70-30 Flexpen 03/28/21 Unknown History Pantoprazole [Protonix TAB] 40 mg QDAY 03/28/21 03/28/21 Unknown History Sertraline [Zoloft] 50 mg PO QDAY 03/28/21 03/28/21 Unknown History buPROPion HCL [Bupropion HCl Sr] 150 mg PO QDAY 03/28/21 03/28/21 Unknown History traZODone [Desyrel] 100 mg PO QHS 03/28/21 03/28/21 Unknown History Active Meds: Active Medications Acetaminophen (Acetaminophen 325 Mg Tab) 650 mg PO Q4H PRN PRN Reason: Pain MILD(1-3)/Fever >100.5/HILARIO Albuterol (Albuterol 2.5 Mg/3 Ml Nebu) 2.5 mg IH Q4HRT PRN PRN Reason: Shortness Of Breath Albuterol/Ipratropium (Ipratropium/Albuterol Sulfate 3 Ml Ampul.Neb) 1 ampul IH Q6HRT [facility] Last Admin: 03/29/21 08:46 Dose: 1 ampul Documented by: Arformoterol Tartrate (Arformoterol 15 Mcg/2 Ml Nebu) 15 mcg IH Q12HRT [facility] Last Admin: 03/29/21 08:46 Dose: 15 mcg Documented by: Aspirin (Aspirin 81 Mg Tab Chew) 81 mg PO QDAY [facility] Last Admin: 03/29/21 10:10 Dose: 81 mg Documented by: Budesonide (Budesonide 0.5 Mg/2 Ml Nebu) 1 mg IH Q12HRT [facility] Last Admin: 03/29/21 08:46 Dose: 1 mg Documented by: Bupropion HCl (Bupropion Sr 150 Mg Tab) 150 mg PO BID [facility] Last Admin: 03/29/21 11:56 Dose: 150 mg Documented by: Cetirizine HCl (Cetirizine 10 Mg Tab) 10 mg PO DAILY [facility] Last Admin: 03/29/21 10:10 Dose: 10 mg Documented by: Hydromorphone HCl (Hydromorphone 1 Mg/1 Ml Inj) 0.5 mg IV Q12H PRN PRN Reason: Pain , Severe (7-10) Last Admin: 03/28/21 23:19 Dose: 0.5 mg Documented by: Sodium Bicarbonate 150 meq/ (Dextrose) 1,150 mls @ 125 mls/hr IV DIRECT [facility] Montelukast Sodium (Montelukast 10 Mg Tab) 10 mg PO QHS [facility] Last Admin: 03/28/21 23:18 Dose: 10 mg Documented by: Ondansetron HCl (Ondansetron 4 Mg/2 Ml Inj) 4 mg IV Q8H PRN PRN Reason: Nausea And Vomiting Oxycodone/Acetaminophen (Oxycodone /Acetaminophen 5-325mg Tab) 1 tab PO Q8H PRN PRN Reason: Pain, Moderate (4-6) Pantoprazole Sodium (Pantoprazole 40 Mg Tab) 40 mg PO DAILY [facility] Last Admin: 03/29/21 10:10 Dose: 40 mg Documented by: Pregabalin (Pregabalin 75 Mg Cap) 75 mg PO TID [facility] Last Admin: 03/29/21 10:10 Dose: 75 mg Documented by: Sertraline HCl (Sertraline 50 Mg Tab) 50 mg PO QDAY [facility] Last Admin: 03/29/21 10:10 Dose: 50 mg Documented by: Sodium Bicarbonate (Sodium Bicarbonate 650 Mg Tab) 650 mg PO BID [facility] Last Admin: 03/29/21 10:10 Dose: 650 mg Documented by: Sodium Chloride (Sodium Chloride 0.9% 10 Ml Flush Syringe) 10 ml IV BID [facility] Last Admin: 03/29/21 10:28 Dose: 10 ml Documented by: Sodium Chloride (Sodium Chloride 0.9% 10 Ml Flush Syringe) 10 ml IV PRN PRN PRN Reason: LINE FLUSH Sodium Polystyrene Sulfonate (Sodium Polystyrene 15 Gm/60 Ml Oral Liqd) 30 gm PO ONCE ONE Stop: 07/09/21 13:01 Trazodone HCl (Trazodone 100 Mg Tab) 100 mg PO QHS JEAN-PAUL Exam - Vital Signs Vital signs: Vital Signs Temp Pulse Resp BP Pulse Ox 97.1 F L 110 H 18 91/51 96 03/28/21 16:36 03/28/21 16:36 03/28/21 16:36 03/28/21 16:36 03/28/21 16:36 - Physical Exam Narrative exam: General appearance: Present: mild distress, cachectic - EENT Eyes: Present: PERRL ENT: clear oral mucosa, hearing decreased - Neck Neck: Present: supple, normal ROM - Respiratory Respiratory effort: labored Respiratory: bilateral: diminished - Cardiovascular Heart Sounds: Present: S1 & S2. Absent: rub, click - Extremities Extremities: pulses symmetrical, No edema Peripheral Pulses: within normal limits - Abdominal General gastrointestinal: Present: soft, non-tender, non-distended, normal bowel sounds Female genitourinary: Present: normal - Integumentary Integumentary: Present: clear, dry, clammy, decreased turgor - Musculoskeletal Musculoskeletal: generalized weakness - Psychiatric Psychiatric: no appropriate mood/affect, no intact judgment & insight, no memory intact - Neurologic Neurologic: CNII-XII intact, no focal deficits, moves all extremities, no gait normal Results - Lab Results 03/28/21 17:35 03/29/21 07:31 Most recent lab results Calcium 8.6 mg/dL (8.4-10.2) 03/29/21 07:31 Assessment and Plan Impression: * CLAIRE * metabolic acidosis * hyperkalemia * uremia * volume depletion * AMS Plan: * aggressive ivfs * add sodium bicarb * strict i/os and daily lytes * no emergent indication for abalone sheller today * renal diet with low k restriction * add kayexalate one dose today * claire likely due to volume depletion, high risk atn
[2021-03-29] MEDS ORDERED: SODIUM POLYSTYRENE 15 GM/60 ML ORAL LIQD PO ONE (13:00)
[2021-03-29] MEDS ORDERED: DEXTROSE 5% IN WATER 1,000 ML with SODIUM BICARBONATE 150 MEQ IV SCH (13:00)
[2021-03-29] MEDS: MONTELUKAST 10 MG TAB PO SCH (21:22)
[2021-03-29] MEDS: traZODone 100 MG TAB PO SCH ×2 (21:23→23:26)
[2021-03-30 06:27] LABS: Calcium 7.8 mg/dL (8.4-10.2)
[2021-03-30] MEDS ORDERED: SODIUM BICARBONATE 150 MEQ in DEXTROSE 5% IN WATER 1,000 ML IV SCH (07:00)
[2021-03-30] MEDS: IPRATROPIUM/ALBUTEROL SULFATE 3 ML AMPUL.NEB IH SCH ×4 (08:25→19:57)
[2021-03-30] MEDS: BUDESONIDE 0.5 MG/2 ML NEBU IH SCH ×2 (10:02→19:57)
[2021-03-30] MEDS: ARFORMOTEROL 15 MCG/2 ML NEBU IH SCH ×2 (10:02→19:57)
--- NOTE | 2021-03-30 10:45 | Progress Note ---
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 Absent: rub, click - Extremities Extremities: pulses symmetrical, No edema Peripheral Pulses: within normal limits - Abdominal General gastrointestinal: Present: soft, non-tender, non-distended, normal bowel sounds Female genitourinary: Present: normal - Integumentary Integumentary: Present: clear, dry, clammy, decreased turgor - Musculoskeletal Musculoskeletal: generalized weakness - Psychiatric Psychiatric: no appropriate mood/affect, no intact judgment & insight, no memory intact - Neurologic Neurologic: CNII-XII intact, no focal deficits, moves all extremities, no gait normal - Vital Signs Vital signs: Vital Signs - 12hr 03/30/21 04:51 Temperature 98.9 F Pulse Rate 87 Respiratory 18 Rate Blood Pressure 107/50 O2 Sat by Pulse 100 Oximetry - Lab 03/28/21 17:35 03/30/21 05:34 Most recent lab results Calcium 7.8 mg/dL (8.4-10.2) L 03/30/21 05:34 Medications & Allergies - Medications Allergies/Adverse Reactions: Allergies No Known Allergies Allergy (Verified 03/28/21 16:27) Home Medications: Home Medications Medication Instructions Recorded Confirmed Last Taken Type Lispro Insulin [HumaLOG] See Protocol SUB-Q TID 05/10/18 02/27/19 Unknown History Montelukast [Singulair] 10 mg PO QHS #30 tablet 03/03/19 03/28/21 Unknown Rx Pregabalin 75 mg PO TID #90 capsule 03/03/19 03/28/21 Unknown Rx amLODIPine 10 mg PO DAILY #30 tablet 03/03/19 03/28/21 Unknown Rx buPROPion SR [Wellbutrin SR] 150 mg PO BID #60 tablet 03/03/19 03/28/21 Unknown Rx Aspirin [Aspirin BABY CHEW TAB] 81 mg PO QDAY 03/28/21 03/28/21 Unknown History Donepezil HCl 03/28/21 Unknown History Novolin 70-30 Flexpen 03/28/21 Unknown History Pantoprazole [Protonix TAB] 40 mg QDAY 03/28/21 03/28/21 Unknown History Sertraline [Zoloft] 50 mg PO QDAY 03/28/21 03/28/21 Unknown History buPROPion HCL [Bupropion HCl Sr] 150 mg PO QDAY 03/28/21 03/28/21 Unknown History traZODone [Desyrel] 100 mg PO QHS 03/28/21 03/28/21 Unknown History Active Medications: Generic Name Dose Route Start Last Admin Trade Name Freq PRN Reason Stop Dose Admin Acetaminophen 650 mg 03/28/21 19:23 Acetaminophen 325 Mg Tab PO Q4H PRN Pain MILD(1-3)/Fever >100.5/HILARIO Albuterol 2.5 mg 03/28/21 19:23 Albuterol 2.5 Mg/3 Ml Nebu IH Q4HRT PRN Shortness Of Breath Albuterol/Ipratropium 1 ampul 03/28/21 20:00 03/30/21 10:02 Ipratropium/Albuterol Sulfate 3 Ml Ampul.Neb IH 1 ampul Q6HRT JEAN-PAUL Administration Arformoterol Tartrate 15 mcg 03/28/21 20:00 03/30/21 10:02 Arformoterol 15 Mcg/2 Ml Nebu IH Not Given Q12HRT JEAN-PAUL Aspirin 81 mg 03/29/21 10:00 03/29/21 10:10 Aspirin 81 Mg Tab Chew PO 81 mg QDAY JEAN-PAUL Administration Budesonide 0.5 mg 03/29/21 20:00 03/30/21 10:02 Budesonide 0.5 Mg/2 Ml Nebu IH 0.5 mg Q12HRT JEAN-PAUL Administration Bupropion HCl 150 mg 03/28/21 22:00 03/29/21 21:23 Bupropion Sr 150 Mg Tab PO 150 mg BID JEAN-PAUL Administration Cetirizine HCl 10 mg 03/29/21 10:00 03/29/21 10:10 Cetirizine 10 Mg Tab PO 10 mg DAILY JEAN-PAUL Administration Hydromorphone HCl 0.5 mg 03/28/21 19:23 03/28/21 23:19 Hydromorphone 1 Mg/1 Ml Inj IV 0.5 mg Q12H PRN Administration Pain , Severe (7-10) Sodium Bicarbonate 75 meq/ 1,085 mls @ 100 mls/hr 03/30/21 11:00 Potassium Chloride 20 meq/ IV Sodium Chloride DIRECT JEAN-PAUL Montelukast Sodium 10 mg 03/28/21 22:00 03/29/21 21:22 Montelukast 10 Mg Tab PO 10 mg QHS JEAN-PAUL Administration Ondansetron HCl 4 mg 03/28/21 19:23 Ondansetron 4 Mg/2 Ml Inj IV Q8H PRN Nausea And Vomiting Oxycodone/Acetaminophen 1 tab 03/28/21 19:23 Oxycodone /Acetaminophen 5-325mg Tab PO Q8H PRN Pain, Moderate (4-6) Pantoprazole Sodium 40 mg 03/29/21 10:00 03/29/21 10:10 Pantoprazole 40 Mg Tab PO 40 mg DAILY JEAN-PAUL Administration Pregabalin 75 mg 03/28/21 20:00 03/29/21 21:23 Pregabalin 75 Mg Cap PO Not Given TID JEAN-PAUL Sertraline HCl 50 mg 03/29/21 10:00 03/29/21 10:10 Sertraline 50 Mg Tab PO 50 mg QDAY JEAN-PAUL Administration Sodium Chloride 10 ml 03/28/21 22:00 03/29/21 21:22 Sodium Chloride 0.9% 10 Ml Flush Syringe IV 10 ml BID JEAN-PAUL Administration Sodium Chloride 10 ml 03/28/21 19:23 Sodium Chloride 0.9% 10 Ml Flush Syringe IV PRN PRN LINE FLUSH Trazodone HCl 100 mg 03/29/21 22:00 03/29/21 23:26 Trazodone 100 Mg Tab PO 100 mg QHS JEAN-PAUL Administration
[2021-03-30] MEDS: ASPIRIN 81 MG TAB CHEW PO SCH (10:57)
[2021-03-30] MEDS: SODIUM BICARBONATE 650 MG TAB PO SCH ×3 (10:57→22:44)
[2021-03-30] MEDS: PANTOPRAZOLE 40 MG TAB PO SCH (10:58)
[2021-03-30] MEDS: CETIRIZINE 10 MG TAB PO SCH (10:58)
[2021-03-30] MEDS: buPROPion SR 150 MG TAB PO SCH ×2 (10:58→22:43)
[2021-03-30] MEDS: PREGABALIN 75 MG CAP PO SCH ×3 (10:58→22:43)
[2021-03-30] MEDS: SERTRALINE 50 MG TAB PO SCH (10:58)
[2021-03-30] MEDS ORDERED: [UNRECOGNIZED DRUG - OTHER] IV SCH (11:00)
[2021-03-30] MEDS ORDERED: SODIUM CHLORIDE 0.45% IV SCH (11:00)
[2021-03-30] MEDS ORDERED: SODIUM BICARBONATE IV SCH ×2 (11:00→23:00)
--- NOTE | 2021-03-30 13:40 | Progress Note ---
Assessment and Plan Assessment and Plan --Acute kidney injury (ELIZA) with acute tubular necrosis (ATN) Gentle hydration, monitor renal function, avoid nephrotoxins. Nephrology consulted Creatinine coming down Good urinary output Obstructive uropathy --Hyperkalemia; improved --Metabolic acidosis; due to acute kidney injury Treat the underlying cause, monitor closely and adjust as needed --Non-ST elevation NM; type II In the setting of acute kidney injury Closely monitor --Vascular dementia with behavioral disturbance Status: Acute . Accu-Cheks. Supportive care Psych evaluation if needed, supportive care --Volume depletion/ELIZA Status: Acute IV fluid resuscitation therapy, monitor urine output every shift. --CHF (congestive heart failure)/fluid overload Status: Acute Blood pressure control, IV diuretics supportive care, fluid restriction, monitor fluid balance. -- COPD (chronic obstructive pulmonary disease) Status: Acute Supplemental oxygen as clinically indicated, supportive care, continue medical management. --DVT prophylaxis Status: Acute SCD to bilateral lower extremities while in bed --Full CODE STATUS --Advance care planning Status: Acute Disease education conducted, care plan discussed, diagnoses discussed, prognosis discussed, patient is full code. Patient daughter Whitney Morales informed of patient prognosis. Patient daughter elects to have home hospice evaluation. Hospice care team notified and evaluation has been established. Patient daughter acknowledges understanding and agreement with care plan, --discharge planning; per case management daughter wants to try home hospice [facility] consult We will closely monitor the patient and adjust the management as needed Follow nephrology evaluation and recommendations Subjective Date of service: 03/30/21 Principal diagnosis: eliza Interval history: 80 YO Female with COPD, Vascular Dementia with Behavioral Disturbance, Cerebral Atherosclerosis, CVA, Diastolic CHF, DM, HTN, GERD, OA, Asthma, HLD, Seasonal Allergies presents to ED for evaluation. Patient has diminished cognition and is unable to provide history. Patient daughter is at bedside during exam and interview and provides history. Patient daughter reports that patient has exp erienced increased weakness and confusion over the past 60 days with progressively worsening symptoms over the past 30 days. Patient is currently bedbound and nonambulatory. Patient has a palliative performance score 30%. Patient requires 6/6 assistance with activities of daily living. Patient is unable to make needs known or follow simple commands. Patient daughter reports lack of oral intake over the past 5 days. Patient transported to [facility] via private vehicle for further care and evaluation of the aforementioned symptoms. The patient was seen and evaluated in the emergency department. All lab and imaging studies reviewed. The patient was found to have acute kidney injury with acute tubular necrosis, metabolic encephalopathy, volume depletion. Patient admitted to medical floor and treated with IV fluid resuscitation therapy and supportive care. No reports of fever, chills, chest pain, palpitation, productive cough, skin rash, recent ill contacts, or known exposure to COVID-19. Prior admission on 02/26/2019 reviewed. All medication listed at time of admission has been reconciled. Advanced care planning conducted in the emergency department. 03/30 cGood urinary output Retention present Creatinine imroving Objective - Constitutional Vitals: Vital Signs - 12hr 03/30/21 03/30/21 03/30/21 04:51 10:19 10:20 Temperature 98.9 F Pulse Rate 87 Pulse Rate [ 92 H Anterior Bilateral Throughout] Respiratory 18 Rate Respiratory 18 Rate [Anterior Bilateral Throughout] Blood Pressure 107/50 O2 Sat by Pulse 100 100 Oximetry General appearance: Present: no acute distress, well-nourished - EENT Eyes: PERRL, EOM intact ENT: hearing intact, clear oral mucosa Ears: bilateral: normal - Neck Neck: supple, normal ROM - Respiratory Respiratory effort: normal Respiratory: bilateral: CTA - Breasts Breasts: normal - Cardiovascular Heart rate: 78 Rhythm: regular Heart Sounds: Present: S1 & S2. Absent: gallop, rub Extremities: pulses intact, No edema, normal color, Full ROM - Gastrointestinal General gastrointestinal: Present: soft, non-tender, non-distended, normal bowel sounds - Genitourinary Female genitourinary: normal - Integumentary Integumentary: clear, warm, dry - Musculoskeletal Musculoskeletal: 1, strength equal bilaterally - Neurologic Neurologic: moves all extremities - Allied health notes Allied health notes reviewed: nursing, case management - Labs CBC & Chem 7: 03/28/21 17:35 04/01/21 07:24 Labs: Abnormal lab results 03/30/21 Range/Units 05:34 Sodium 136 L (137-145) mmol/L Potassium 3.4 L D (3.6-5.0) mmol/L Carbon Dioxide 18 L (22-30) mmol/L BUN 63 H (7-17) mg/dL Creatinine 5.0 H (0.6-1.2) mg/dL Glucose 214 H (65-100) mg/dL Calcium 7.8 L (8.4-10.2) mg/dL HEART Score - HEART Score Troponin: Troponin T 0.163 ng/mL (0.00-0.029) H* D 03/29/21 07:31
[2021-03-30] MEDS ORDERED: ALBUTEROL 2.5 MG/3 ML NEBU IH PRN (16:00)
[2021-03-30] MEDS: MONTELUKAST 10 MG TAB PO SCH (22:42)
[2021-03-30] MEDS: traZODone 100 MG TAB PO SCH (22:44)
[2021-03-30] MEDS ORDERED: [UNRECOGNIZED DRUG - OTHER] IV SCH (23:00)
[2021-03-30] MEDS ORDERED: POTASSIUM CHLORIDE IV SCH (23:00)
[2021-03-31 07:26] LABS: Creatinine,Urine 111.4 mg/dL (0.1-20.0)
[2021-03-31 07:35] LABS: Bilirubin,Urine NEG (Negative); Blood,Urine NEG (Negative); Color,Urine Yellow (Yellow); Mucus,Urine FEW /HPF; Urobilinogen,Urine < 2.0 mg/dL (<2.0)
[2021-03-31] MEDS: ARFORMOTEROL 15 MCG/2 ML NEBU IH SCH ×3 (07:45→20:34)
[2021-03-31] MEDS: BUDESONIDE 0.5 MG/2 ML NEBU IH SCH ×3 (07:45→20:34)
[2021-03-31 09:04] LABS: Calcium 7.6 mg/dL (8.4-10.2)
[2021-03-31] MEDS: IPRATROPIUM/ALBUTEROL SULFATE 3 ML AMPUL.NEB IH SCH ×3 (09:14→20:34)
[2021-03-31] MEDS: buPROPion SR 150 MG TAB PO SCH ×2 (10:45→22:49)
[2021-03-31] MEDS: ASPIRIN 81 MG TAB CHEW PO SCH (10:45)
[2021-03-31] MEDS: PANTOPRAZOLE 40 MG TAB PO SCH (10:45)
[2021-03-31] MEDS: SODIUM BICARBONATE 650 MG TAB PO SCH (10:45)
[2021-03-31] MEDS: SERTRALINE 50 MG TAB PO SCH (10:46)
[2021-03-31] MEDS: CETIRIZINE 10 MG TAB PO SCH (10:46)
[2021-03-31] MEDS: PREGABALIN 75 MG CAP PO SCH ×3 (10:47→20:10)
--- NOTE | 2021-03-31 12:40 | Progress Note ---
Assessment and Plan Impression: * ELIZA * metabolic acidosis * hyperkalemia--resolved * uremia * volume depletion * AMS Plan: * cr is better today * aggressive ivfs, change to 1/2 NS * stop sodium bicarb * replete k and mag prn * strict i/os and daily lytes * no emergent indication for engraver pantograph today * renal diet with low k restriction * urine studies noted, has UTI, add iv rocephin * eliza likely due to volume depletion, high risk atn Subjective Date of service: 03/31/21 Principal diagnosis: eliza Interval history: chart and labs reviewed events noted Objective - Exam Narrative Exam: General appearance: Present: mild distress, cachectic - EENT Eyes: Present: PERRL ENT: clear oral mucosa, hearing decreased - Neck Neck: Present: supple, normal ROM - Respiratory Respiratory effort: labored Respiratory: bilateral: diminished - Cardiovascular Heart Sounds: Present: S1 & S2. Absent: rub, click - Extremities Extremities: pulses symmetrical, No edema Peripheral Pulses: within normal limits - Abdominal General gastrointestinal: Present: soft, non-tender, non-distended, normal bowel sounds Female genitourinary: Present: normal - Integumentary Integumentary: Present: clear, dry, clammy, decreased turgor - Musculoskeletal Musculoskeletal: generalized weakness - Psychiatric Psychiatric: no appropriate mood/affect, no intact judgment & insight, no memory intact - Neurologic Neurologic: CNII-XII intact, no focal deficits, moves all extremities, no gait normal - Vital Signs Vital signs: Vital Signs - 12hr 03/31/21 03/31/21 03/31/21 04:56 07:44 07:46 Temperature 98.7 F Pulse Rate 80 Pulse Rate [ 87 Posterior Bilateral Throughout] Respiratory 18 Rate Respiratory 16 Rate [Posterior Bilateral Throughout] Blood Pressure 105/53 O2 Sat by Pulse 98 98 Oximetry - Lab 03/28/21 17:35 03/31/21 07:26 Most recent lab results Calcium 7.6 mg/dL (8.4-10.2) L 03/31/21 07:26 Urine Creatinine 111.4 mg/dL (0.1-20.0) H 03/31/21 06:20 Urine Sodium 42 mmol/L 03/31/21 06:20 Medications & Allergies - Medications Allergies/Adverse Reactions: Allergies No Known Allergies Allergy (Verified 03/28/21 16:27) Home Medications: Home Medications Medication Instructions Recorded Confirmed Last Taken Type Lispro Insulin [HumaLOG] See Protocol SUB-Q TID 05/10/18 02/27/19 Unknown History Montelukast [Singulair] 10 mg PO QHS #30 tablet 03/03/19 03/28/21 Unknown Rx Pregabalin 75 mg PO TID #90 capsule 03/03/19 03/28/21 Unknown Rx amLODIPine 10 mg PO DAILY #30 tablet 03/03/19 03/28/21 Unknown Rx buPROPion SR [Wellbutrin SR] 150 mg PO BID #60 tablet 03/03/19 03/28/21 Unknown Rx Aspirin [Aspirin BABY CHEW TAB] 81 mg PO QDAY 03/28/21 03/28/21 Unknown History Donepezil HCl 03/28/21 Unknown History Novolin 70-30 Flexpen 03/28/21 Unknown History Pantoprazole [Protonix TAB] 40 mg QDAY 03/28/21 03/28/21 Unknown History Sertraline [Zoloft] 50 mg PO QDAY 03/28/21 03/28/21 Unknown History buPROPion HCL [Bupropion HCl Sr] 150 mg PO QDAY 03/28/21 03/28/21 Unknown History traZODone [Desyrel] 100 mg PO QHS 03/28/21 03/28/21 Unknown History Active Medications: Generic Name Dose Route Start Last Admin Trade Name Freq PRN Reason Stop Dose Admin Acetaminophen 650 mg 03/28/21 19:23 Acetaminophen 325 Mg Tab PO Q4H PRN Pain MILD(1-3)/Fever >100.5/HILARIO Albuterol 2.5 mg 03/30/21 16:00 Albuterol 2.5 Mg/3 Ml Nebu IH Q4HRT PRN Shortness Of Breath Albuterol/Ipratropium 1 ampul 03/30/21 20:00 03/31/21 09:14 Ipratropium/Albuterol Sulfate 3 Ml Ampul.Neb IH Not Given TIDRT JEAN-PAUL Arformoterol Tartrate 15 mcg 03/30/21 20:00 03/31/21 07:45 Arformoterol 15 Mcg/2 Ml Nebu IH 15 mcg Q12HRT JEAN-PAUL Administration Aspirin 81 mg 03/29/21 10:00 07/11/21 10:45 Aspirin 81 Mg Tab Chew PO 81 mg QDAY JEAN-PAUL Administration Budesonide 0.5 mg 03/30/21 20:00 03/31/21 07:45 Budesonide 0.5 Mg/2 Ml Nebu IH 0.5 mg Q12HRT JEAN-PAUL Administration Bupropion HCl 150 mg 03/28/21 22:00 03/31/21 10:45 Bupropion Sr 150 Mg Tab PO 150 mg BID JEAN-PAUL Administration Cetirizine HCl 10 mg 03/29/21 10:00 03/31/21 10:46 Cetirizine 10 Mg Tab PO 10 mg DAILY JEAN-PAUL Administration Hydromorphone HCl 0.5 mg 03/28/21 19:23 03/28/21 23:19 Hydromorphone 1 Mg/1 Ml Inj IV 0.5 mg Q12H PRN Administration Pain , Severe (7-10) Sodium Chloride 1,000 mls @ 100 mls/hr 03/31/21 13:00 Nacl 0.45% 1000 Ml IV DIRECT JEAN-PAUL Ceftriaxone Sodium 1 gm in 50 mls @ 100 mls/hr 03/31/21 13:00 Rocephin/Ns 1 Gm/50 Ml IV Q24HR JEAN-PAUL Protocol Montelukast Sodium 10 mg 03/28/21 22:00 03/30/21 22:42 Montelukast 10 Mg Tab PO 10 mg QHS JEAN-PAUL Administration Ondansetron HCl 4 mg 03/28/21 19:23 Ondansetron 4 Mg/2 Ml Inj IV Q8H PRN Nausea And Vomiting Oxycodone/Acetaminophen 1 tab 03/28/21 19:23 Oxycodone /Acetaminophen 5-325mg Tab PO Q8H PRN Pain, Moderate (4-6) Pantoprazole Sodium 40 mg 03/29/21 10:00 03/31/21 10:45 Pantoprazole 40 Mg Tab PO 40 mg DAILY EJAN-PAUL Administration Pregabalin 75 mg 03/28/21 20:00 03/31/21 10:47 Pregabalin 75 Mg Cap PO 75 mg TID JEAN-PAUL Administration Sertraline HCl 50 mg 03/29/21 10:00 03/31/21 10:46 Sertraline 50 Mg Tab PO 50 mg QDAY JEAN-PAUL Administration Sodium Chloride 10 ml 03/28/21 22:00 03/31/21 10:45 Sodium Chloride 0.9% 10 Ml Flush Syringe IV 10 ml BID JEAN-PAUL Administration Sodium Chloride 10 ml 03/28/21 19:23 Sodium Chloride 0.9% 10 Ml Flush Syringe IV PRN PRN LINE FLUSH Trazodone HCl 100 mg 03/29/21 22:00 03/30/21 22:44 Trazodone 100 Mg Tab PO 100 mg QHS JEAN-PAUL Administration
--- NOTE | 2021-03-31 14:59 | Progress Note ---
Assessment and Plan Assessment and Plan --Acute kidney injury (ELIZA) with acute tubular necrosis (ATN) Gentle hydration, monitor renal function, avoid nephrotoxins. Nephrology consulted Creatinine coming down Good urinary output Obstructive uropathy --Hyperkalemia; improved --Metabolic acidosis; due to acute kidney injury Treat the underlying cause, monitor closely and adjust as needed --Non-ST elevation NM; type II In the setting of acute kidney injury Closely monitor --Vascular dementia with behavioral disturbance Status: Acute . Accu-Cheks. Supportive care Psych evaluation if needed, supportive care --Volume depletion/ELIZA Status: Acute IV fluid resuscitation therapy, monitor urine output every shift. --CHF (congestive heart failure)/fluid overload Status: Acute Blood pressure control, IV diuretics supportive care, fluid restriction, monitor fluid balance. -- COPD (chronic obstructive pulmonary disease) Status: Acute Supplemental oxygen as clinically indicated, supportive care, continue medical management. --DVT prophylaxis Status: Acute SCD to bilateral lower extremities while in bed --Full CODE STATUS --Advance care planning Status: Acute Disease education conducted, care plan discussed, diagnoses discussed, prognosis discussed, patient is full code. Patient daughter Whitney Morales informed of patient prognosis. Patient daughter elects to have home hospice evaluation. Hospice care team notified and evaluation has been established. Patient daughter acknowledges understanding and agreement with care plan, --discharge planning; per case management daughter wants to try home hospice [facility] consult We will closely monitor the patient and adjust the management as needed Follow nephrology evaluation and recommendations Subjective Date of service: 03/31/21 Principal diagnosis: eliza Interval history: 80 YO Female with COPD, Vascular Dementia with Behavioral Disturbance, Cerebral Atherosclerosis, CVA, Diastolic CHF, DM, HTN, GERD, OA, Asthma, HLD, Seasonal Allergies presents to ED for evaluation. Patient has diminished cognition and is unable to provide history. Patient daughter is at bedside during exam and interview and provides history. Patient daughter reports that patient has exp erienced increased weakness and confusion over the past 60 days with progressively worsening symptoms over the past 30 days. Patient is currently bedbound and nonambulatory. Patient has a palliative performance score 30%. Patient requires 6/6 assistance with activities of daily living. Patient is unable to make needs known or follow simple commands. Patient daughter reports lack of oral intake over the past 5 days. Patient transported to [facility] via private vehicle for further care and evaluation of the aforementioned symptoms. The patient was seen and evaluated in the emergency department. All lab and imaging studies reviewed. The patient was found to have acute kidney injury with acute tubular necrosis, metabolic encephalopathy, volume depletion. Patient admitted to medical floor and treated with IV fluid resuscitation therapy and supportive care. No reports of fever, chills, chest pain, palpitation, productive cough, skin rash, recent ill contacts, or known exposure to COVID-19. Prior admission on 02/26/2019 reviewed. All medication listed at time of admission has been reconciled. Advanced care planning conducted in the emergency department. 03/30 cGood urinary output Retention present Creatinine imroving 03/31 Urinary retention On straight cath 500 to 800 cc of urine Objective - Constitutional Vitals: Vital Signs - 12hr 03/31/21 03/31/21 03/31/21 04:56 07:44 07:46 Temperature 98.7 F Pulse Rate 80 Pulse Rate [ 87 Posterior Bilateral Throughout] Respiratory 18 Rate Respiratory 16 Rate [Posterior Bilateral Throughout] Blood Pressure 105/53 O2 Sat by Pulse 98 98 Oximetry 03/31/21 03/31/21 11:21 14:10 Temperature 97.8 F Pulse Rate 97 H Pulse Rate [ 82 Posterior Bilateral Throughout] Respiratory 18 Rate Respiratory 16 Rate [Posterior Bilateral Throughout] Blood Pressure 110/55 O2 Sat by Pulse 98 Oximetry General appearance: Present: no acute distress, well-nourished - EENT Eyes: PERRL, EOM intact ENT: hearing intact, clear oral mucosa Ears: bilateral: normal - Neck Neck: supple, normal ROM - Respiratory Respiratory effort: normal Respiratory: bilateral: CTA - Breasts Breasts: normal - Cardiovascular Heart rate: 78 Rhythm: regular Heart Sounds: Present: S1 & S2. Absent: gallop, rub Extremities: pulses intact, No edema, normal color, Full ROM - Gastrointestinal General gastrointestinal: Present: soft, non-tender, non-distended, normal bowel sounds - Genitourinary Female genitourinary: normal - Integumentary Integumentary: clear, warm, dry - Musculoskeletal Musculoskeletal: 1, strength equal bilaterally - Neurologic Neurologic: moves all extremities - Psychiatric Psychiatric: depressed - Allied health notes Allied health notes reviewed: nursing, case management - Labs CBC & Chem 7: 03/28/21 17:35 04/01/21 07:24 Labs: Abnormal lab results 03/31/21 03/31/21 03/31/21 Range/Units 06:20 06:20 07:26 Potassium 3.3 L (3.6-5.0) mmol/L BUN 55 H (7-17) mg/dL Creatinine 4.5 H (0.6-1.2) mg/dL Glucose 119 H (65-100) mg/dL Calcium 7.6 L (8.4-10.2) mg/dL Urine WBC (Auto) 9.0 H (0.0-6.0) /HPF Urine Creatinine 111.4 H (0.1-20.0) mg/dL HEART Score - HEART Score Troponin: Troponin T 0.163 ng/mL (0.00-0.029) H* D 03/29/21 07:31
[2021-03-31] MEDS: cefTRIAXone/NS 1 GM/50 ML 1 GM/50 ML BAG IV SCH (15:15)
[2021-03-31] MEDS: SODIUM CHLORIDE 0.45% 1000 ML 1,000 ML IV SCH (15:16)
[2021-03-31] MEDS: MONTELUKAST 10 MG TAB PO SCH (22:49)
[2021-03-31] MEDS: traZODone 100 MG TAB PO SCH (22:49)
[2021-04-01] MEDS: SODIUM CHLORIDE 0.45% 1000 ML 1,000 ML IV SCH (06:17)
[2021-04-01] MEDS: PREGABALIN 75 MG CAP PO SCH ×3 (08:00→20:53)
[2021-04-01] MEDS: ARFORMOTEROL 15 MCG/2 ML NEBU IH SCH ×2 (08:41→20:25)
[2021-04-01] MEDS: IPRATROPIUM/ALBUTEROL SULFATE 3 ML AMPUL.NEB IH SCH ×3 (08:41→20:25)
[2021-04-01] MEDS: BUDESONIDE 0.5 MG/2 ML NEBU IH SCH ×2 (08:41→20:25)
[2021-04-01 08:58] LABS: Calcium 7.5 mg/dL (8.4-10.2)
[2021-04-01] MEDS: cefTRIAXone/NS 1 GM/50 ML 1 GM/50 ML BAG IV SCH (10:03)
[2021-04-01] MEDS: SERTRALINE 50 MG TAB PO SCH (10:04)
[2021-04-01] MEDS: CETIRIZINE 10 MG TAB PO SCH (10:04)
[2021-04-01] MEDS: PANTOPRAZOLE 40 MG TAB PO SCH (10:04)
[2021-04-01] MEDS: ASPIRIN 81 MG TAB CHEW PO SCH (10:04)
[2021-04-01] MEDS: buPROPion SR 150 MG TAB PO SCH ×2 (10:07→22:27)
--- NOTE | 2021-04-01 10:44 | Progress Note ---
Assessment and Plan Impression: * ELIZA- likely due to volume depletion, high risk atn; non-oliguric * metabolic acidosis- resolved * hyperkalemia--resolved * uremia/azotemia * volume depletion * AMS Plan: * cr is better today- 5.2->4.5->4.0 * continue with IVF as tolerated, currently ordered for NS * off sodium bicarb gtt * replete k and mag prn * strict i/os and daily lytes * no emergent indication for financial advisor today * renal diet with low k restriction * urine studies noted concerning for UTI, antibiotics per primary; rare eosinophils Subjective Date of service: 04/01/21 Principal diagnosis: eliza Interval history: Resting this AM, no acute renal associated events noted Objective - Exam Narrative Exam: Constitutional: no acute distress Head: NC/AT Neck: supple Lungs: clear to auscultation CV: RRR, no M/R/G Abdomen: soft, non-tender, bowel sounds present Back: nontender Extremities: no edema, pulses WNL Skin: intact Neuro: no focal deficits, alert and oriented x4 - Vital Signs Vital signs: Vital Signs - 12hr 04/01/21 04/01/21 04/01/21 05:09 08:40 08:41 Temperature 98.0 F Pulse Rate 76 Pulse Rate [ 90 Posterior Bilateral Throughout] Respiratory 18 Rate Respiratory 16 Rate [Posterior Bilateral Throughout] Blood Pressure 99/53 O2 Sat by Pulse 94 100 Oximetry - Lab 03/28/21 17:35 04/01/21 07:24 Most recent lab results Calcium 7.5 mg/dL (8.4-10.2) L 04/01/21 07:24 Urine Creatinine 111.4 mg/dL (0.1-20.0) H 03/31/21 06:20 Urine Sodium 42 mmol/L 03/31/21 06:20 Medications & Allergies - Medications Allergies/Adverse Reactions: Allergies No Known Allergies Allergy (Verified 03/28/21 16:27) Home Medications: Home Medications Medication Instructions Recorded Confirmed Last Taken Type Lispro Insulin [HumaLOG] 5 units SUB-Q ACHS 05/10/18 04/01/21 Unknown History Montelukast [Singulair] 10 mg PO QHS #30 tablet 03/03/19 03/28/21 Unknown Rx Pregabalin 75 mg PO TID #90 capsule 03/03/19 03/28/21 Unknown Rx amLODIPine 10 mg PO DAILY #30 tablet 03/03/19 03/28/21 Unknown Rx buPROPion SR [Wellbutrin SR] 150 mg PO BID #60 tablet 03/03/19 03/28/21 Unknown Rx Aspirin [Aspirin BABY CHEW TAB] 81 mg PO QDAY 03/28/21 03/28/21 Unknown History Donepezil HCl 10 mg PO DAILY 03/28/21 04/01/21 Unknown History Novolin 70-30 Flexpen 10 units SUB-Q QHS 03/28/21 04/01/21 Unknown History Pantoprazole [Protonix TAB] 40 mg QDAY 03/28/21 03/28/21 Unknown History Sertraline [Zoloft] 50 mg PO QDAY 03/28/21 03/28/21 Unknown History buPROPion HCL [Bupropion HCl Sr] 150 mg PO QDAY 03/28/21 03/28/21 Unknown Histo ry traZODone [Desyrel] 100 mg PO QHS 03/28/21 03/28/21 Unknown History Active Medications: Generic Name Dose Route Start Last Admin Trade Name Freq PRN Reason Stop Dose Admin Acetaminophen 650 mg 03/28/21 19:23 Acetaminophen 325 Mg Tab PO Q4H PRN Pain MILD(1-3)/Fever >100.5/HILARIO Albuterol 2.5 mg 03/30/21 16:00 Albuterol 2.5 Mg/3 Ml Nebu IH Q4HRT PRN Shortness Of Breath Albuterol/Ipratropium 1 ampul 03/30/21 20:00 04/01/21 08:41 Ipratropium/Albuterol Sulfate 3 Ml Ampul.Neb IH Not Given TIDRT JEAN-PAUL Arformoterol Tartrate 15 mcg 03/30/21 20:00 04/01/21 08:41 Arformoterol 15 Mcg/2 Ml Nebu IH 15 mcg Q12HRT JEAN-PAUL Administration Aspirin 81 mg 03/29/21 10:00 04/01/21 10:04 Aspirin 81 Mg Tab Chew PO 81 mg QDAY JEAN-PAUL Administration Budesonide 0.5 mg 03/30/21 20:00 04/01/21 08:41 Budesonide 0.5 Mg/2 Ml Nebu IH 0.5 mg Q12HRT JEAN-PAUL Administration Bupropion HCl 150 mg 03/28/21 22:00 04/01/21 10:07 Bupropion Sr 150 Mg Tab PO 150 mg BID JEAN-PAUL Administration Cetirizine HCl 10 mg 03/29/21 10:00 04/01/21 10:04 Cetirizine 10 Mg Tab PO 10 mg DAILY JEAN-PAUL Administration Hydromorphone HCl 0.5 mg 03/28/21 19:23 03/28/21 23:19 Hydromorphone 1 Mg/1 Ml Inj IV 0.5 mg Q12H PRN Administration Pain , Severe (7-10) Sodium Chloride 1,000 mls @ 100 mls/hr 03/31/21 13:30 04/01/21 06:17 Nacl 0.45% 1000 Ml IV 100 mls/hr DIRECT JEAN-PAUL Administration Ceftriaxone Sodium 1 gm in 50 mls @ 100 mls/hr 03/31/21 13:30 04/01/21 10:03 Rocephin/Ns 1 Gm/50 Ml IV 100 mls/hr Q24HR JEAN-PAUL Administration Protocol Montelukast Sodium 10 mg 03/28/21 22:00 03/31/21 22:49 Montelukast 10 Mg Tab PO 10 mg QHS JEAN-PAUL Administration Ondansetron HCl 4 mg 03/28/21 19:23 Ondansetron 4 Mg/2 Ml Inj IV Q8H PRN Nausea And Vomiting Oxycodone/Acetaminophen 1 tab 03/28/21 19:23 Oxycodone /Acetaminophen 5-325mg Tab PO Q8H PRN Pain, Moderate (4-6) Pantoprazole Sodium 40 mg 03/29/21 10:00 04/01/21 10:04 Pantoprazole 40 Mg Tab PO 40 mg DAILY JEAN-PAUL Administration Pregabalin 75 mg 03/28/21 20:00 04/01/21 08:00 Pregabalin 75 Mg Cap PO 75 mg TID JEAN-PAUL Administration Sertraline HCl 50 mg 03/29/21 10:00 04/01/21 10:04 Sertraline 50 Mg Tab PO 50 mg QDAY JEAN-PAUL Administration Sodium Chloride 10 ml 03/28/21 22:00 04/01/21 10:05 Sodium Chloride 0.9% 10 Ml Flush Syringe IV 10 ml BID JEAN-PAUL Administration Sodium Chloride 10 ml 03/28/21 19:23 Sodium Chloride 0.9% 10 Ml Flush Syringe IV PRN PRN LINE FLUSH Trazodone HCl 100 mg 03/29/21 22:00 03/31/21 22:49 Trazodone 100 Mg Tab PO 100 mg QHS JEAN-PAUL Administration
--- NOTE | 2021-04-01 19:00 | Cat Scan Report ---
CT ABDOMEN AND PELVIS WITHOUT CONTRAST INDICATION / CLINICAL INFORMATION: Obstructive uropathy/hydronephrosis. TECHNIQUE: Axial CT images were obtained through the abdomen and pelvis without IV contrast. All CT scans at this location are performed using CT dose reduction for ALARA by means of automated exposure control. COMPARISON: None available. FINDINGS: LOWER CHEST: There are small bilateral pleural effusions with associated atelectasis in the lower lob es.. There is patchy airspace opacity noted in the right middle lobe. LIVER: There is hepatomegaly. The liver measures approximately 18 cm in length. GALLBLADDER: There is some high density material within the gallbladder which could represent sludge or stones. BILE DUCTS: No significant abnormality. PANCREAS: No significant abnormality. SPLEEN: No significant abnormality. ADRENALS: No significant abnormality. RIGHT KIDNEY / URETER: Atrophy. There are small calyceal stone in the upper pole. There are mild pare nchymal calcifications. LEFT KIDNEY / URETER: No significant abnormality. STOMACH / SMALL BOWEL: No significant abnormality. COLON: No significant abnormality. APPENDIX: No significant abnormality. PERITONEUM: There is small amount of ascites adjacent to liver. There is a small amount of ascites in the pelvis. No free air. No fluid collection. LYMPH NODES: No significant adenopathy. AORTA / ARTERIES: Moderate atherosclerotic calcification without acute abnormality. IVC / VEINS: No significant abnormality. URINARY BLADDER: No significant abnormality. REPRODUCTIVE ORGANS: No significant abnormality. ADDITIONAL FINDINGS: None. SKELETAL SYSTEM: There is relatively advanced discogenic degenerative change at L4-5. There is a grad e 1 spondylolisthesis at L4-5. IMPRESSION: 1. There are small bilateral pleural effusions. There is patchy airspace opacity in the right middle lobe. 2. There is a small stone in the upper pole the right kidney. There is no hydronephrosis. There is at rophy of the right kidney. No ureteral calculi are seen. 3. There is some high density material within the gallbladder which could represent sludge or stones within the lumen. Signer Name: Korey Cisse MD Signed: 04/01/2021 6:56 PM Workstation Name: [id number]
[2021-04-01] MEDS: MONTELUKAST 10 MG TAB PO SCH (22:27)
[2021-04-01] MEDS: traZODone 100 MG TAB PO SCH (22:27)
--- NOTE | 2021-04-02 01:34 | Progress Note ---
Assessment and Plan Assessment and Plan --Acute kidney injury (ELIZA) with acute tubular necrosis (ATN) Gentle hydration, monitor renal function, avoid nephrotoxins. Nephrology consulted Creatinine coming down 73/5.2 to 51/4.0 Good urinary output retention present Straight cath Obstructive uropathy Urology consult requested--informed--will see patient in AM Abd CT scan pending --Hyperkalemia; improved --Metabolic acidosis; due to acute kidney injury Treat the underlying cause, monitor closely and adjust as needed --Non-ST elevation [place]; type II In the setting of acute kidney injury Closely monitor --Vascular dementia with behavioral disturbance Status: Acute . Accu-Cheks. Supportive care Psych evaluation if needed, supportive care --Volume depletion/ELIZA Status: Acute IV fluid resuscitation therapy, monitor urine output every shift. --CHF (congestive heart failure)/fluid overload Status: Acute Blood pressure control, IV diuretics supportive care, fluid restriction, monitor fluid balance. -- COPD (chronic obstructive pulmonary disease) Status: Acute Supplemental oxygen as clinically indicated, supportive care, continue medical management. --DVT prophylaxis Status: Acute SCD to bilateral lower extremities while in bed --Full CODE STATUS --Advance care planning Status: Acute Disease education conducted, care plan discussed, diagnoses discussed, prognosis discussed, patient is full code. Patient daughter Whitney Morales informed of patient prognosis. Patient daughter elects to have home hospice evaluation. Hospice care team notified and evaluation has been established. Patient daughter acknowledges understanding and agreement with care plan, --discharge planning; per case management daughter wants to try home hospice Place hospice consult Subjective Date of service: 04/01/21 Principal diagnosis: eliza/Atn Interval history: 80 YO Female with COPD, Vascular Dementia with Behavioral Disturbance, Cerebral Atherosclerosis, CVA, Diastolic CHF, DM, HTN, GERD, OA, Asthma, HLD, Seasonal Allergies presents to ED for evaluation. Patient has diminished cognition and is unable to provide history. Patient daughter is at bedside during exam and interview and provides history. Patient daughter reports that patient has experienced increased weakness and confusion over the past 60 days with progressively worsening symptoms over the past 30 days. Patient is currently bedbound and nonambulatory. Patient has a palliative performance score 30%. Patient requires 6/6 assistance with activities of daily living. Patient is unable to make needs known or follow simple commands. Patient daughter reports lack of oral intake over the past 5 days. Patient transported to [facility] via private vehicle for further care and evaluation of the aforementioned symptoms. The patient was seen and evaluated in the emergency department. All lab and imaging studies reviewed. The patient was found to have acute kidney injury with acute tubular necrosis, metabolic encephalopathy, volume depletion. Patient admitted to medical floor and treated with IV fluid resuscitation therapy and supportive care. No reports of fever, chills, chest pain, palpitation, productive cough, skin rash, recent ill contacts, or known exposure to COVID-19. Prior admission on 02/26/2019 reviewed. All medication listed at time of admission has been reconciled. Advanced care planning conducted in the emergency department. 03/30 cGood urinary output Retention present Creatinine imroving 03/31 Urinary retention On straight cath 500 to 800 cc of urine 04/01/[address] scan requested Urology consult requested Creatinine improving 73/5.2 to 51/4.0 Objective - Constitutional Vitals: Vital Signs - 12hr 04/01/21 04/01/21 04/01/21 14:04 17:09 20:25 Temperature 98.3 F Pulse Rate 87 Pulse Rate [ 86 86 Posterior Bilateral Throughout] Respiratory 18 Rate Respiratory 16 16 Rate [Posterior Bilateral Throughout] Blood Pressure 101/59 O2 Sat by Pulse 95 Oximetry 04/01/21 21:53 Temperature 98.3 F Pulse Rate 87 Pulse Rate [ Posterior Bilateral Throughout] Respiratory 18 Rate Respiratory Rate [Posterior Bilateral Throughout] Blood Pressure 110/58 O2 Sat by Pulse 94 Oximetry General appearance: Present: no acute distress, well-nourished - EENT Eyes: PERRL, EOM intact ENT: hearing intact, clear oral mucosa Ears: bilateral: normal - Neck Neck: supple, normal ROM - Respiratory Respiratory effort: normal Respiratory: bilateral: CTA - Breasts Breasts: normal - Cardiovascular Heart rate: 78 Rhythm: regular Heart Sounds: Present: S1 & S2. Absent: gallop, rub Extremities: pulses intact, No edema, normal color, Full ROM - Gastrointestinal General gastrointestinal: Present: soft, non-tender, non-distended, normal bowel sounds - Genitourinary Female genitourinary: normal - Integumentary Integumentary: clear, warm, dry - Musculoskeletal Musculoskeletal: 1, strength equal bilaterally - Neurologic Neurologic: moves all extremities - Psychiatric Psychiatric: memory intact, appropriate mood/affect, intact judgment & insight - Allied health notes Allied health notes reviewed: nursing, social work, case management - Labs CBC & Chem 7: 03/28/21 17:35 04/01/21 07:24 Labs: Abnormal lab results 04/01/21 Range/Units 07:24 BUN 51 H (7-17) mg/dL Creatinine 4.0 H (0.6-1.2) mg/dL Glucose 112 H (65-100) mg/dL Calcium 7.5 L (8.4-10.2) mg/dL HEART Score - HEART Score Troponin: Troponin T 0.163 ng/mL (0.00-0.029) H* D 03/29/21 07:31
[2021-04-02] MEDS: PREGABALIN 75 MG CAP PO SCH ×3 (08:00→20:41)
--- NOTE | 2021-04-02 09:25 | Progress Note ---
Assessment and Plan Assessment and plan: --Acute kidney injury (ELIZA) with acute tubular necrosis (ATN) Gentle hydration, monitor renal function, avoid nephrotoxins. Nephrology following, trend creatinine levels Input output monitoring Patient had urinary retention, straight catheterization done relieved Again patient had urinary retention this morning, urology consulted Obstructive uropathy Abdominal CT scan findings reviewed follow urology evaluation and recommendations --Hyperkalemia; Present on admission, significantly improved Closely monitor electrolytes --Metabolic acidosis; due to acute kidney injury Treat the underlying cause, monitor closely and adjust as needed --Non-ST elevation [place]; type II In the setting of acute kidney injury Patient does not have chest pain or cardiac symptoms Closely monitor --Vascular dementia with behavioral disturbance Supportive care, psych evaluation if needed --Volume depletion/ELIZA Gentle hydration monitor renal function --CHF (congestive heart failure)/fluid overload Blood pressure control, IV diuretics supportive care, fluid restriction, monitor fluid balance. LVEF 55 to 60%, congestion due to fluid overload -- COPD (chronic obstructive pulmonary disease) Oxygen titrate O2 sats to more than 90% Nebulizers, steroids as needed --DVT prophylaxis SCD to bilateral lower extremities while in bed --Full CODE STATUS --Advance care planning plan of care discussed with the patient and her nurse Family considering hospice DC planning per case management Patient daughter Whitney Morales informed of patient prognosis. Patient daughter elects to have home hospice evaluation. Hospice care team notified and evaluation has been established. Patient daughter acknowledges understanding and agreement with care plan, --discharge planning; per case management daughter wants to try home hospice Place hospice consult Brief history 80 YO Female with COPD, Vascular Dementia with Behavioral Disturbance, Cerebral Atherosclerosis, CVA, Diastolic CHF, DM, HTN, GERD, OA, Asthma, HLD, Seasonal Allergies presents to ED for evaluation. Patient has diminished cognition and is unable to provide history. Patient daughter is at bedside during exam and interview and provides history. Patient daughter reports that patient has experienced increased weakness and confusion over the past 60 days with progressively worsening symptoms over the past 30 days. Patient is currently bedbound and nonambulatory. Patient has a palliative performance score 30%. Patient requires 6/6 assistance with activities of daily living. Patient is unable to make needs known or follow simple commands. Patient daughter reports lack of oral intake over the past 5 days. Patient transported to [facility] via private vehicle for further care and evaluation of the aforementioned symptoms. The patient was seen and evaluated in the emergency department. All lab and imaging studies reviewed. The patient was found to have acute kidney injury with acute tubular necrosis, metabolic encephalopathy, volume depletion. Patient admitted to medical floor and treated with IV fluid resuscitation therapy and supportive care. No reports of fever, chills, chest pain, palpitation, productive cough, skin rash, recent ill contacts, or known exposure to COVID-19. Prior admission on 02/26/2019 reviewed. All medication listed at time of admission has been reconciled. Advanced care planning conducted in the emergency department. 03/30 cGood urinary output Retention present Creatinine imroving 03/31 Urinary retention On straight cath 500 to 800 cc of urine 04/01/[address] scan requested Urology consult requested Creatinine improving 73/5.2 to 51/4.0 04/02/2021; urology consult pending Straight cath as needed Hospitalist Physical - Constitutional Vitals: Temp Pulse Resp BP Pulse Ox 98.2 F 81 18 123/59 93 04/02/21 04:56 04/02/21 04:56 04/02/21 04:56 04/02/21 04:56 04/02/21 04:56 General appearance: Present: no acute distress, well-nourished - EENT Eyes: Present: PERRL, EOM intact - Neck Neck: Present: supple, normal ROM - Respiratory Respiratory effort: normal Respiratory: bilateral: diminished, negative: rales, rhonchi, wheezing - Cardiovascular Rhythm: regular Heart Sounds: Present: S1 & S2 - Extremities Extremities: no ischemia, No edema - Abdominal General gastrointestinal: soft, non-tender, non-distended, normal bowel sounds - Integumentary Integumentary: Present: clear, warm - Psychiatric Psychiatric: appropriate mood/affect, cooperative, other (Confused at times) - Neurologic Neurologic: moves all extremities HEART Score - HEART Score Troponin: Troponin T 0.163 ng/mL (0.00-0.029) H* D 03/29/21 07:31 Results - Labs CBC & Chem 7: 03/28/21 17:35 04/02/21 07:43 Labs: Laboratory Last Values WBC 9.6 K/mm3 (4.5-11.0) 03/28/21 17:35 RBC 3.32 M/mm3 (3.65-5.03) L 03/28/21 17:35 Hgb 10.0 gm/dl (10.1-14.3) L 03/28/21 17:35 Hct 30.4 % (30.3-42.9) 03/28/21 17:35 MCV 92 fl (79-97) 03/28/21 17:35 MCH 30 pg (28-32) 03/28/21 17:35 MCHC 33 % (30-34) 03/28/21 17:35 RDW 14.9 % (13.2-15.2) 03/28/21 17:35 Plt Count 309 K/mm3 (140-440) 03/28/21 17:35 Eos % (Auto) Chief Innovation Officer 03/28/21 17:35 Add Manual Diff Complete 03/28/21 17:35 Total Counted 100 03/28/21 17:35 Seg Neuts % (Manual) 62.0 % (40.0-70.0) 03/28/21 17:35 Lymphocytes % (Manual) 15.0 % (13.4-35.0) 03/28/21 17:35 Monocytes % (Manual) 3.0 % (0.0-7.3) 03/28/21 17:35 Eosinophils % (Manual) 18.0 % (0.0-4.3) H 03/28/21 17:35 Basophils % (Manual) 2.0 % (0.0-1.8) H 03/28/21 17:35 Nucleated RBC % Not Reportable 03/28/21 17:35 Seg Neutrophils # Man 6.0 K/mm3 (1.8-7.7) 03/28/21 17:35 Band Neutrophils # 0.0 K/mm3 03/28/21 17:35 Lymphocytes # (Manual) 1.4 K/mm3 (1.2-5.4) 03/28/21 17:35 Abs React Lymphs (Man) 0.0 K/mm3 03/28/21 17:35 Monocytes # (Manual) 0.3 K/mm3 (0.0-0.8) 03/28/21 17:35 Eosinophils # (Manual) 1.7 K/mm3 (0.0-0.4) H 03/28/21 17:35 Basophils # (Manual) 0.2 K/mm3 (0.0-0.1) H 03/28/21 17:35 Metamyelocytes # 0.0 K/mm3 03/28/21 17:35 Myelocytes # 0.0 K/mm3 03/28/21 17:35 Promyelocytes # 0.0 K/mm3 03/28/21 17:35 Blast Cells # 0.0 K/mm3 03/28/21 17:35 WBC Morphology Not Reportable 03/28/21 17:35 Hypersegmented Neuts Not Reportable 03/28/21 17:35 Hyposegmented Neuts Not Reportable 03/28/21 17:35 Hypogranular Neuts Not Reportable 03/28/21 17:35 Smudge Cells Not Reportable 03/28/21 17:35 Toxic Granulation Not Reportable 03/28/21 17:35 Toxic Vacuolation Not Reportable 03/28/21 17:35 Dohle Bodies Not Reportable 03/28/21 17:35 Pelger-Huet Anomaly Not Reportable 03/28/21 17:35 Elaina Rods Not Reportable 03/28/21 17:35 Platelet Estimate Consistent w auto 03/28/21 17:35 Clumped Platelets Not Reportable 03/28/21 17:35 Plt Clumps, EDTA Not Reportable 03/28/21 17:35 Large Platelets Not Reportable 03/28/21 17:35 Giant Platelets Not Reportable 03/28/21 17:35 Platelet Satelliting Not Reportable 03/28/21 17:35 Plt Morphology Comment Not Reportable 03/28/21 17:35 RBC Morphology Not Reportable 03/28/21 17:35 Dimorphic RBCs Not Reportable 03/28/21 17:35 Polychromasia Not Reportable 03/28/21 17:35 Hypochromasia Not Reportable 03/28/21 17:35 Poikilocytosis Not Reportable 03/28/21 17:35 Anisocytosis 1+ 03/28/21 17:35 Microcytosis Not Reportable 03/28/21 17:35 Macrocytosis Not Reportable 03/28/21 17:35 Spherocytes Not Reportable 03/28/21 17:35 Pappenheimer Bodies Not Reportable 03/28/21 17:35 Sickle Cells Not Reportable 03/28/21 17:35 Target Cells Not Reportable 03/28/21 17:35 Tear Drop Cells Not Reportable 03/28/21 17:35 Ovalocytes Not Reportable 03/28/21 17:35 Helmet Cells Not Reportable 03/28/21 17:35 [place] Bodies Not Reportable 03/28/21 17:35 [place] Rings Not Reportable 03/28/21 17:35 Fishtail Cells Not Reportable 03/28/21 17:35 Bite Cells Not Reportable 03/28/21 17:35 Crenated Cell Not Reportable 03/28/21 17:35 Elliptocytes Not Reportable 03/28/21 17:35 Acanthocytes (Spur) Not Reportable 03/28/21 17:35 Rouleaux Not Reportable 03/28/21 17:35 Hemoglobin C Crystals Not Reportable 03/28/21 17:35 Schistocytes Not Reportable 03/28/21 17:35 Malaria parasites Not Reportable 03/28/21 17:35 Charles Bodies Not Reportable 03/28/21 17:35 Hem Pathologist Commnt No 03/28/21 17:35 Sodium 137 mmol/L (137-145) 04/01/21 07:24 Potassium 3.7 mmol/L (3.6-5.0) 04/01/21 07:24 Chloride 101.2 mmol/L (98-107) 04/01/21 07:24 Carbon Dioxide 27 mmol/L (22-30) 04/01/21 07:24 Anion Gap 13 mmol/L 04/01/21 07:24 BUN 51 mg/dL (7-17) H 04/01/21 07:24 Creatinine 4.0 mg/dL (0.6-1.2) H 04/01/21 07:24 Estimated GFR 13 ml/min 04/01/21 07:24 BUN/Creatinine Ratio 13 % 04/01/21 07:24 Glucose 112 mg/dL (65-100) H 04/01/21 07:24 Lactic Acid 0.60 mmol/L (0.7-2.0) L 03/28/21 20:04 Calcium 7.5 mg/dL (8.4-10.2) L 04/01/21 07:24 Total Bilirubin 0.40 mg/dL (0.1-1.2) 03/28/21 17:35 AST 12 units/L (5-40) 03/28/21 17:35 ALT 8 units/L (7-56) 03/28/21 17:35 Alkaline Phosphatase 151 units/L (35-129) H 03/28/21 17:35 Total Creatine Kinase 49 units/L (30-135) 03/29/21 07:31 CK-MB (CK-2) 3.9 ng/mL (0.0-4.0) 03/29/21 07:31 CK-MB (CK-2) Rel Index 7.9 (0-4) H 03/29/21 07:31 Troponin T 0.163 ng/mL (0.00-0.029) H* D 03/29/21 07:31 Total Protein 7.6 g/dL (6.3-8.2) 03/28/21 17:35 Albumin 3.5 g/dL (3.9-5) L 03/28/21 17:35 Albumin/Globulin Ratio 0.9 % 03/28/21 17:35 Triglycerides 182 mg/dL (2-149) H 03/28/21 17:35 Cholesterol 149 mg/dL (50-199) 03/28/21 17:35 LDL Cholesterol Direct 78 mg/dL (50-130) 03/28/21 17:35 HDL Cholesterol 32 mg/dL (40-59) L 03/28/21 17:35 Cholesterol/HDL Ratio 4.65 % 03/28/21 17:35 Urine Color Yellow (Yellow) 03/31/21 06:20 Urine Turbidity Clear (Clear) 03/31/21 06:20 Urine pH 5.0 (5.0-7.0) 03/31/21 06:20 Ur Specific [place] 1.013 (1.003-1.030) 03/31/21 06:20 Urine Protein 30 mg/dl mg/dL (Negative) 03/31/21 06:20 Urine Glucose (UA) 50 mg/dL (Negative) 03/31/21 06:20 Urine Ketones Neg mg/dL (Negative) 03/31/21 06:20 Urine Blood Neg (Negative) 03/31/21 06:20 Urine Nitrite Neg (Negative) 03/31/21 06:20 Urine Bilirubin Neg (Negative) 03/31/21 06:20 Urine Urobilinogen < 2.0 mg/dL (<2.0) 03/31/21 06:20 Ur Leukocyte Esterase Sm (Negative) 03/31/21 06:20 Urine WBC (Auto) 9.0 /HPF (0.0-6.0) H 03/31/21 06:20 Urine RBC (Auto) 3.0 /HPF (0.0-6.0) 03/31/21 06:20 Urine Mucus Few /HPF 03/31/21 06:20 Urine Eosinophils Rare (None Seen) 03/31/21 06:20 Urine Creatinine 111.4 mg/dL (0.1-20.0) H 03/31/21 06:20 Urine Sodium 42 mmol/L 03/31/21 06:20 Microbiology: Microbiology 03/28/21 17:35 Peripheral/Venous Blood Culture - Preliminary NO GROWTH AFTER 4 DAYS 03/28/21 17:35 Peripheral/Venous Blood Culture - Preliminary NO GROWTH AFTER 4 DAYS Cantu/IV: Voiding Method Incontinent Active Medications - Current Medications Current Medications: Generic Name Dose Route Start Last Admin Trade Name Freq PRN Reason Stop Dose Admin Acetaminophen 650 mg 03/28/21 19:23 Acetaminophen 325 Mg Tab PO Q4H PRN Pain MILD(1-3)/Fever >100.5/HILARIO Albuterol 2.5 mg 03/30/21 16:00 Albuterol 2.5 Mg/3 Ml Nebu IH Q4HRT PRN Shortness Of Breath Albuterol/Ipratropium 1 ampul 03/30/21 20:00 04/01/21 20:25 Ipratropium/Albuterol Sulfate 3 Ml Ampul.Neb IH 1 ampul TIDRT JEAN-PAUL Administration Arformoterol Tartrate 15 mcg 03/30/21 20:00 04/01/21 20:25 Arformoterol 15 Mcg/2 Ml Nebu IH 15 mcg Q12HRT JEAN-PAUL Administration Aspirin 81 mg 03/29/21 10:00 04/01/21 10:04 Aspirin 81 Mg Tab Chew PO 81 mg QDAY JEAN-PAUL Administration Budesonide 0.5 mg 03/30/21 20:00 04/01/21 20:25 Budesonide 0.5 Mg/2 Ml Nebu IH 0.5 mg Q12HRT JEAN-PAUL Administration Bupropion HCl 150 mg 03/28/21 22:00 04/01/21 22:27 Bupropion Sr 150 Mg Tab PO 150 mg BID JEAN-PAUL Administration Cetirizine HCl 10 mg 03/29/21 10:00 04/01/21 10:04 Cetirizine 10 Mg Tab PO 10 mg DAILY JEAN-PAUL Administration Hydromorphone HCl 0.5 mg 03/28/21 19:23 03/28/21 23:19 Hydromorphone 1 Mg/1 Ml Inj IV 0.5 mg Q12H PRN Administration Pain , Severe (7-10) Sodium Chloride 1,000 mls @ 100 mls/hr 03/31/21 13:30 04/01/21 06:17 Nacl 0.45% 1000 Ml IV 100 mls/hr DIRECT JEAN-PAUL Administration Ceftriaxone Sodium 1 gm in 50 mls @ 100 mls/hr 03/31/21 13:30 04/01/21 10:03 Rocephin/Ns 1 Gm/50 Ml IV 04/06/21 13:29 100 mls/hr Q24HR JEAN-PAUL Administration Protocol Montelukast Sodium 10 mg 03/28/21 22:00 04/01/21 22:27 Montelukast 10 Mg Tab PO 10 mg QHS JEAN-PAUL Administration Ondansetron HCl 4 mg 03/28/21 19:23 04/01/21 13:38 Ondansetron 4 Mg/2 Ml Inj IV 4 mg Q8H PRN Administration Nausea And Vomiting Oxycodone/Acetaminophen 1 tab 03/28/21 19:23 Oxycodone /Acetaminophen 5-325mg Tab PO Q8H PRN Pain, Moderate (4-6) Pantoprazole Sodium 40 mg 03/29/21 10:00 04/01/21 10:04 Pantoprazole 40 Mg Tab PO 40 mg DAILY JEAN-PAUL Administration Pregabalin 75 mg 03/28/21 20:00 04/01/21 20:53 Pregabalin 75 Mg Cap PO 75 mg TID JEAN-PAUL Administration Sertraline HCl 50 mg 03/29/21 10:00 04/01/21 10:04 Sertraline 50 Mg Tab PO 50 mg QDAY JEAN-PAUL Administration Sodium Chloride 10 ml 03/28/21 22:00 04/01/21 22:27 Sodium Chloride 0.9% 10 Ml Flush Syringe IV 10 ml BID JEAN-PAUL Administration Sodium Chloride 10 ml 03/28/21 19:23 Sodium Chloride 0.9% 10 Ml Flush Syringe IV PRN PRN LINE FLUSH Trazodone HCl 100 mg 03/29/21 22:00 04/01/21 22:27 Trazodone 100 Mg Tab PO 100 mg QHS JEAN-PAUL Administration Nutrition/Malnutrition Assess - Dietary Evaluation Nutrition/Malnutrition Findings: Nutrition Notes Start: 03/29/21 12:40 Freq: Status: Active Protocol: Document 04/01/21 13:58 MK (Rec: 04/01/21 14:00 MK [id number]) Nutrition Notes Initial or Follow up Brief Note Current Diagnosis Acute Kidney Injury,Diabetes, Hypertension,Heart Failure, Hyperlipidemia Other Pertinent Diagnosis demetia Current Diet Renal, mech soft Subjective/Other Information FU for intakes. Pt seems more confused today and unable to assess intakes. RN unsure of intakes. Nutrition Intervention Follow-Up By: 04/02/21 Additional Comments FU for intakes and ONS tolerance
[2021-04-02] MEDS: ARFORMOTEROL 15 MCG/2 ML NEBU IH SCH ×2 (09:29→20:18)
[2021-04-02] MEDS: IPRATROPIUM/ALBUTEROL SULFATE 3 ML AMPUL.NEB IH SCH ×3 (09:29→20:18)
[2021-04-02] MEDS: BUDESONIDE 0.5 MG/2 ML NEBU IH SCH ×2 (09:29→20:18)
[2021-04-02 09:45] LABS: Calcium 8.2 mg/dL (8.4-10.2)
[2021-04-02] MEDS: cefTRIAXone/NS 1 GM/50 ML 1 GM/50 ML BAG IV SCH (09:57)
[2021-04-02] MEDS: SERTRALINE 50 MG TAB PO SCH (09:58)
[2021-04-02] MEDS: buPROPion SR 150 MG TAB PO SCH ×2 (09:58→21:36)
[2021-04-02] MEDS: ASPIRIN 81 MG TAB CHEW PO SCH (09:58)
[2021-04-02] MEDS: PANTOPRAZOLE 40 MG TAB PO SCH (09:58)
[2021-04-02] MEDS: CETIRIZINE 10 MG TAB PO SCH (09:58)
--- NOTE | 2021-04-02 10:16 | Progress Note ---
Assessment and Plan Impression: * ELIZA- likely due to volume depletion, high risk atn; non-oliguric * metabolic acidosis- resolved * hyperkalemia--resolved * uremia/azotemia * volume depletion * AMS * Atrophic Right Kidney * Kidney stone Plan: * cr is stable today- 5.2->4.5->4.0->4.0 with good urine output * continue with IVF as tolerated, currently ordered for NS * off sodium bicarb gtt * replete k and mag prn * strict i/os and daily lytes * no emergent indication for marketing manager today * renal diet with low k restriction * agree with urology consult Subjective Date of service: 04/02/21 Principal diagnosis: eliza/Atn Interval history: Resting this AM, no acute renal associated events noted. Did have CT abd/pelvis done which shows kidney stone Objective - Exam Narrative Exam: Constitutional: no acute distress Head: NC/AT Neck: supple Lungs: clear to auscultation CV: RRR, no M/R/G Abdomen: soft, non-tender, bowel sounds present Back: nontender Extremities: no edema, pulses WNL Skin: intact Neuro: no focal deficits, alert and oriented x4 - Vital Signs Vital signs: Vital Signs - 12hr 04/02/21 04/02/21 04:56 08:00 Temperature 98.2 F Pulse Rate 81 Pulse Rate [ 94 H Posterior Bilateral Throughout] Respiratory 18 Rate Respiratory 18 Rate [Posterior Bilateral Throughout] Blood Pressure 123/59 O2 Sat by Pulse 93 Oximetry - Lab 03/28/21 17:35 04/02/21 07:43 Most recent lab results Calcium 8.2 mg/dL (8.4-10.2) L 04/02/21 07:43 Urine Creatinine 111.4 mg/dL (0.1-20.0) H 03/31/21 06:20 Urine Sodium 42 mmol/L 03/31/21 06:20 Medications & Allergies - Medications Allergies/Adverse Reactions: Allergies No Known Allergies Allergy (Verified 03/28/21 16:27) Home Medications: Home Medications Medication Instructions Recorded Confirmed Last Taken Type Lispro Insulin [HumaLOG] 5 units SUB-Q ACHS 05/10/18 04/01/21 Unknown History Montelukast [Singulair] 10 mg PO QHS #30 tablet 03/03/19 03/28/21 Unknown Rx Pregabalin 75 mg PO TID #90 capsule 03/03/19 03/28/21 Unknown Rx amLODIPine 10 mg PO DAILY #30 tablet 03/03/19 03/28/21 Unknown Rx buPROPion SR [Wellbutrin SR] 150 mg PO BID #60 tablet 03/03/19 03/28/21 Unknown Rx Aspirin [Aspirin BABY CHEW TAB] 81 mg PO QDAY 03/28/21 03/28/21 Unknown History Donepezil HCl 10 mg PO DAILY 03/28/21 04/01/21 Unknown History Novolin 70-30 Flexpen 10 units SUB-Q QHS 03/28/21 04/01/21 Unknown History Pantoprazole [Protonix TAB] 40 mg QDAY 03/28/21 03/28/21 Unknown History Sertraline [Zoloft] 50 mg PO QDAY 03/28/21 03/28/21 Unknown History buPROPion HCL [Bupropion HCl Sr] 150 mg PO QDAY 03/28/21 03/28/21 Unknown History traZODone [Desyrel] 100 mg PO QHS 03/28/21 03/28/21 Unknown History Active Medications: Generic Name Dose Route Start Last Admin Trade Name Freq PRN Reason Stop Dose Admin Acetaminophen 650 mg 03/28/21 19:23 Acetaminophen 325 Mg Tab PO Q4H PRN Pain MILD(1-3)/Fever >100.5/HILARIO Albuterol 2.5 mg 03/30/21 16:00 Albuterol 2.5 Mg/3 Ml Nebu IH Q4HRT PRN Shortness Of Breath Albuterol/Ipratropium 1 ampul 03/30/21 20:00 04/02/21 09:29 Ipratropium/Albuterol Sulfate 3 Ml Ampul.Neb IH 1 ampul TIDRT JEAN-PAUL Administration Arformoterol Tartrate 15 mcg 03/30/21 20:00 04/02/21 09:29 Arformoterol 15 Mcg/2 Ml Nebu IH 15 mcg Q12HRT JEAN-PAUL Administration Aspirin 81 mg 03/29/21 10:00 04/02/21 09:58 Aspirin 81 Mg Tab Chew PO 81 mg QDAY JEAN-PAUL Administration Budesonide 0.5 mg 03/30/21 20:00 04/02/21 09:29 Budesonide 0.5 Mg/2 Ml Nebu IH 0.5 mg Q12HRT JEAN-PAUL Administration Bupropion HCl 150 mg 03/28/21 22:00 04/02/21 09:58 Bupropion Sr 150 Mg Tab PO 150 mg BID JEAN-PAUL Administration Cetirizine HCl 10 mg 03/29/21 10:00 04/02/21 09:58 Cetirizine 10 Mg Tab PO 10 mg DAILY JEAN-PAUL Administration Hydromorphone HCl 0.5 mg 03/28/21 19:23 03/28/21 23:19 Hydromorphone 1 Mg/1 Ml Inj IV 0.5 mg Q12H PRN Administration Pain , Severe (7-10) Sodium Chloride 1,000 mls @ 100 mls/hr 03/31/21 13:30 04/01/21 06:17 Nacl 0.45% 1000 Ml IV 100 mls/hr DIRECT JEAN-PAUL Administration Ceftriaxone Sodium 1 gm in 50 mls @ 100 mls/hr 03/31/21 13:30 04/02/21 09:57 Rocephin/Ns 1 Gm/50 Ml IV 04/06/21 13:29 100 mls/hr Q24HR JEAN-PAUL Administration Protocol Montelukast Sodium 10 mg 03/28/21 22:00 04/01/21 22:27 Montelukast 10 Mg Tab PO 10 mg QHS JEAN-PAUL Administration Ondansetron HCl 4 mg 03/28/21 19:23 04/01/21 13:38 Ondansetron 4 Mg/2 Ml Inj IV 4 mg Q8H PRN Administration Nausea And Vomiting Oxycodone/Acetaminophen 1 tab 03/28/21 19:23 Oxycodone /Acetaminophen 5-325mg Tab PO Q8H PRN Pain, Moderate (4-6) Pantoprazole Sodium 40 mg 03/29/21 10:00 04/02/21 09:58 Pantoprazole 40 Mg Tab PO 40 mg DAILY JEAN-PAUL Administration Pregabalin 75 mg 03/28/21 20:00 04/02/21 08:00 Pregabalin 75 Mg Cap PO 75 mg TID JEAN-PAUL Administration Sertraline HCl 50 mg 03/29/21 10:00 04/02/21 09:58 Sertraline 50 Mg Tab PO 50 mg QDAY JEAN-PAUL Administration Sodium Chloride 10 ml 03/28/21 22:00 04/02/21 09:58 Sodium Chloride 0.9% 10 Ml Flush Syringe IV 10 ml BID JEAN-PAUL Administration Sodium Chloride 10 ml 03/28/21 19:23 Sodium Chloride 0.9% 10 Ml Flush Syringe IV PRN PRN LINE FLUSH Trazodone HCl 100 mg 03/29/21 22:00 04/01/21 22:27 Trazodone 100 Mg Tab PO 100 mg QHS JEAN-PAUL Administration
--- NOTE | 2021-04-02 10:46 | Electrocardiograph Report ---
[facility] Test Date: 2021-03-28 Test Time: 17:02:33 Pat Name: RIVAS JACKSON Department: Room: A387 1 Gender: F Human Services Worker: EULALIA : 1940 Requested By: ERICKA SMITH Order Number: [id number] Reading MD: Pako Uriostegui Measurements Intervals [place] Rate: 109 P: 75 MD: 142 QRS: 34 QRSD: 76 T: 81 QT: 296 QTc: 398 Interpretive Statements Sinus tachycardia ST elevation, consider anterior injury No previous ECG available for comparison Electronically Signed On 04-02-2021 10:46:00 EDT by Pako Uriostegui
--- NOTE | 2021-04-02 18:03 | Consultation ---
History of Present Illness - Reason for Consult Consult date: 04/02/21 - History of Present Illness NEW TO OUR SERVICE Patient is 80 years old female with history of COPD, asthma, CHF CVA and d ementia. Patient brought to the emergency room by her daughter for evaluation of generalized weakness decreased p.o. intake and cough. Daughter stated that her symptom has been going on for 5 days and her health is declining. Patient is not talking much. Most of the history is from patient daughter. Daughter denied any fever or chills. She also denied any diarrhea or dysuria. Patient found to be tachycardic with a heart rate of 110 and a blood pressure of 90/50. Patient also stated that she had pneumonia 2 months ago. She stated that she had 2 short of [employer] COVID-19 vaccine in October. Sepsis protocol initiated and patient started on normal saline and Levaquin. 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 denies: smoking, alcohol abuse, prescription drug abuse Family history: diabetes, hypertension Medications and Allergies Allergies Allergy/AdvReac Type Severity Reaction Status Date / Time No Known Allergies Allergy Verified 03/28/21 16:27 Home Medications Medication Instructions Recorded Confirmed Last Taken Type Lispro Insulin [HumaLOG] 5 units SUB-Q ACHS 05/10/18 04/01/21 Unknown History Montelukast [Singulair] 10 mg PO QHS #30 tablet 03/03/19 03/28/21 Unknown Rx Pregabalin 75 mg PO TID #90 capsule 03/03/19 03/28/21 Unknown Rx amLODIPine 10 mg PO DAILY #30 tablet 03/03/19 03/28/21 Unknown Rx buPROPion SR [Wellbutrin SR] 150 mg PO BID #60 tablet 03/03/19 03/28/21 Unknown Rx Aspirin [Aspirin BABY CHEW TAB] 81 mg PO QDAY 03/28/21 03/28/21 Unknown History Donepezil HCl 10 mg PO DAILY 03/28/21 04/01/21 Unknown History Novolin 70-30 Flexpen 10 units SUB-Q QHS 03/28/21 04/01/21 Unknown History Pantoprazole [Protonix TAB] 40 mg QDAY 03/28/21 03/28/21 Unknown History Sertraline [Zoloft] 50 mg PO QDAY 03/28/21 03/28/21 Unknown History buPROPion HCL [Bupropion HCl Sr] 150 mg PO QDAY 03/28/21 03/28/21 Unknown History traZODone [Desyrel] 100 mg PO QHS 03/28/21 03/28/21 Unknown History Active Meds: Active Medications Acetaminophen (Acetaminophen 325 Mg Tab) 650 mg PO Q4H PRN PRN Reason: Pain MILD(1-3)/Fever >100.5/HILARIO Albuterol (Albuterol 2.5 Mg/3 Ml Nebu) 2.5 mg IH Q4HRT PRN PRN Reason: Shortness Of Breath Albuterol/Ipratropium (Ipratropium/Albuterol Sulfate 3 Ml Ampul.Neb) 1 ampul IH TIDRT [facility] Last Admin: 04/02/21 14:33 Dose: Not Given Documented by: Arformoterol Tartrate (Arformoterol 15 Mcg/2 Ml Nebu) 15 mcg IH Q12HRT [facility] Last Admin: 04/02/21 09:29 Dose: 15 mcg Documented by: Aspirin (Aspirin 81 Mg Tab Chew) 81 mg PO QDAY [facility] Last Admin: 04/02/21 09:58 Dose: 81 mg Documented by: Budesonide (Budesonide 0.5 Mg/2 Ml Nebu) 0.5 mg IH Q12HRT [facility] Last Admin: 04/02/21 09:29 Dose: 0.5 mg Documented by: Bupropion HCl (Bupropion Sr 150 Mg Tab) 150 mg PO BID [facility] Last Admin: 04/02/21 09:58 Dose: 150 mg Documented by: Cetirizine HCl (Cetirizine 10 Mg Tab) 10 mg PO DAILY [facility] Last Admin: 04/02/21 09:58 Dose: 10 mg Documented by: Hydromorphone HCl (Hydromorphone 1 Mg/1 Ml Inj) 0.5 mg IV Q12H PRN PRN Reason: Pain , Severe (7-10) Last Admin: 03/28/21 23:19 Dose: 0.5 mg Documented by: Sodium Chloride (Nacl 0.45% 1000 Ml) 1,000 mls @ 100 mls/hr IV DIRECT [facility] Last Admin: 04/01/21 06:17 Dose: 100 mls/hr Documented by: Ceftriaxone Sodium (Rocephin/Ns 1 Gm/50 Ml) 1 gm in 50 mls @ 100 mls/hr IV Q24HR [facility]; Protocol Stop: 04/06/21 13:29 Last Admin: 04/02/21 09:57 Dose: 100 mls/hr Documented by: Montelukast Sodium (Montelukast 10 Mg Tab) 10 mg PO QHS [facility] Last Admin: 04/01/21 22:27 Dose: 10 mg Documented by: Ondansetron HCl (Ondansetron 4 Mg/2 Ml Inj) 4 mg IV Q8H PRN PRN Reason: Nausea And Vomiting Last Admin: 04/01/21 13:38 Dose: 4 mg Documented by: Oxycodone/Acetaminophen (Oxycodone /Acetaminophen 5-325mg Tab) 1 tab PO Q8H PRN PRN Reason: Pain, Moderate (4-6) Pantoprazole Sodium (Pantoprazole 40 Mg Tab) 40 mg PO DAILY [facility] Last Admin: 04/02/21 09:58 Dose: 40 mg Documented by: Pregabalin (Pregabalin 75 Mg Cap) 75 mg PO TID [facility] Last Admin: 04/02/21 13:23 Dose: 75 mg Documented by: Sertraline HCl (Sertraline 50 Mg Tab) 50 mg PO QDAY [facility] Last Admin: 04/02/21 09:58 Dose: 50 mg Documented by: Sodium Chloride (Sodium Chloride 0.9% 10 Ml Flush Syringe) 10 ml IV BID [facility] Last Admin: 04/02/21 09:58 Dose: 10 ml Documented by: Sodium Chloride (Sodium Chloride 0.9% 10 Ml Flush Syringe) 10 ml IV PRN PRN PRN Reason: LINE FLUSH Trazodone HCl (Trazodone 100 Mg Tab) 100 mg PO QHS [facility] Last Admin: 04/01/21 22:27 Dose: 100 mg Documented by: Exam - Constitutional Vitals: Temp Pulse Resp BP Pulse Ox 97.3 F L 87 16 128/65 98 04/02/21 16:06 04/02/21 16:06 04/02/21 16:06 04/02/21 16:06 04/02/21 16:06 Results - Labs CBC & Chem 7: 03/28/21 17:35 04/02/21 07:43 Labs: Abnormal lab results 04/02/21 Range/Units 07:43 BUN 46 H (7-17) mg/dL Creatinine 4.0 H (0.6-1.2) mg/dL Calcium 8.2 L (8.4-10.2) mg/dL
[2021-04-02] MEDS: traZODone 100 MG TAB PO SCH (21:35)
[2021-04-02] MEDS: MONTELUKAST 10 MG TAB PO SCH (21:35)
[2021-04-03 03:15] VITALS: BP 118/44
--- NOTE | 2021-04-03 08:27 | Progress Note ---
Assessment and Plan Assessment and plan: --Urinary retention/bladder outlet obstruction: Urology evaluation and recommendations noted and appreciated. Urologist feels symptoms due to atrophic right kidney, nuclear scan requested an d recommend outpatient urodynamics Recommend CIC [clean intermittent catheterization, to drain the bladder and remove use CIC as needed] DC Cantu, clean intermittent straight catheterization as needed to drain the bladder. --Acute kidney injury (ELIZA) with acute tubular necrosis (ATN) Gentle hydration, monitor renal function, avoid nephrotoxins. Nephrology following, trend creatinine levels Input output monitoring Patient had urinary retention, straight catheterization done relieved Again patient had urinary retention this morning, urology consulted Obstructive uropathy Abdominal CT scan findings reviewed follow urology evaluation and recommendations --Hyperkalemia; Present on admission, significantly improved Closely monitor electrolytes --Metabolic acidosis; due to acute kidney injury Treat the underlying cause, monitor closely and adjust as needed --Non-ST elevation SD; type II In the setting of acute kidney injury Patient does not have chest pain or cardiac symptoms Closely monitor --Vascular dementia with behavioral disturbance Supportive care, psych evaluation if needed --Volume depletion/ELIZA Gentle hydration monitor renal function --CHF (congestive heart failure)/fluid overload Blood pressure control, IV diuretics supportive care, fluid restriction, monitor fluid balance. LVEF 55 to 60%, congestion due to fluid overload -- COPD (chronic obstructive pulmonary disease) Oxygen titrate O2 sats to more than 90% Nebulizers, steroids as needed --DVT prophylaxis SCD to bilateral lower extremities while in bed --Full CODE STATUS --Advance care planning plan of care discussed with the patient and her nurse Family considering hospice DC planning per case management Patient daughter Whitney Morales informed of patient prognosis. Patient daughter elects to have home hospice evaluation. Hospice care team notified and evaluation has been established. Patient daughter acknowledges understanding and agreement with care plan, --discharge planning; per case management daughter wants to try home hospice Place hospice consult Brief history 80 YO Female with COPD, Vascular Dementia with Behavioral Disturbance, Cerebral Atherosclerosis, CVA, Diastolic CHF, DM, HTN, GERD, OA, Asthma, HLD, Seasonal Allergies presents to ED for evaluation. Patient has diminished cognition and is unable to provide history. Patient daughter is at bedside during exam and interview and provides history. Patient daughter reports that patient has experienced increased weakness and confusion over the past 60 days with progressively worsening symptoms over the past 30 days. Patient is currently bedbound and nonambulatory. Patient has a palliative performance score 30%. Patient requires 6/6 assistance with activities of daily living. Patient is unable to make needs known or follow simple commands. Patient daughter reports lack of oral intake over the past 5 days. Patient transported to [facility] via private vehicle for further care and evaluation of the aforementioned symptoms. The patient was seen and evaluated in the emergency department. All lab and imaging studies reviewed. The patient was found to have acute kidney injury with acute tubular necrosis, metabolic encephalopathy, volume depletion. Patient admitted to medical floor and treated with IV fluid resuscitation therapy and supportive care. No reports of fever, chills, chest pain, palpitation, productive cough, skin rash, recent ill contacts, or known exposure to COVID-19. Prior admission on 02/26/2019 reviewed. All medication listed at time of admission has been reconciled. Advanced care planning conducted in the emergency department. 03/30 cGood urinary output Retention present Creatinine imroving 03/31 Urinary retention On straight cath 500 to 800 cc of urine 04/01/[address] scan requested Urology consult requested Creatinine improving 73/5.2 to 51/4.0 04/02/2021; urology consult pending Straight cath as needed History Interval history: Morning labs not available. Patient is scheduled for renal ultrasound Bladder outlet obstruction, Cantu placed Urology evaluation and recommendations noted and appreciated Will DC Cantu catheter and use clean intermittent straight catheterization as needed I discussed with patient's nurse Mr. Cortez Hospitalist Physical - Constitutional Vitals: Temp Pulse Resp BP Pulse Ox 98.1 F 78 16 118/44 93 04/03/21 03:07 04/03/21 03:07 04/03/21 03:07 04/03/21 03:07 04/03/21 03:07 General appearance: Present: no acute distress, well-nourished HEART Score - HEART Score Troponin: Troponin T 0.163 ng/mL (0.00-0.029) H* D 03/29/21 07:31 Results - Labs CBC & Chem 7: 03/28/21 17:35 04/02/21 07:43 Labs: Laboratory Last Values WBC 9.6 K/mm3 (4.5-11.0) 03/28/21 17:35 RBC 3.32 M/mm3 (3.65-5.03) L 03/28/21 17:35 Hgb 10.0 gm/dl (10.1-14.3) L 03/28/21 17:35 Hct 30.4 % (30.3-42.9) 03/28/21 17:35 MCV 92 fl (79-97) 03/28/21 17:35 MCH 30 pg (28-32) 03/28/21 17:35 MCHC 33 % (30-34) 03/28/21 17:35 RDW 14.9 % (13.2-15.2) 03/28/21 17:35 Plt Count 309 K/mm3 (140-440) 03/28/21 17:35 Eos % (Auto) Plate Molder 03/28/21 17:35 Add Manual Diff Complete 03/28/21 17:35 Total Counted 100 03/28/21 17:35 Seg Neuts % (Manual) 62.0 % (40.0-70.0) 03/28/21 17:35 Lymphocytes % (Manual) 15.0 % (13.4-35.0) 03/28/21 17:35 Monocytes % (Manual) 3.0 % (0.0-7.3) 03/28/21 17:35 Eosinophils % (Manual) 18.0 % (0.0-4.3) H 03/28/21 17:35 Basophils % (Manual) 2.0 % (0.0-1.8) H 03/28/21 17:35 Nucleated RBC % Not Reportable 03/28/21 17:35 Seg Neutrophils # Man 6.0 K/mm3 (1.8-7.7) 03/28/21 17:35 Band Neutrophils # 0.0 K/mm3 03/28/21 17:35 Lymphocytes # (Manual) 1.4 K/mm3 (1.2-5.4) 03/28/21 17:35 Abs React Lymphs (Man) 0.0 K/mm3 03/28/21 17:35 Monocytes # (Manual) 0.3 K/mm3 (0.0-0.8) 03/28/21 17:35 Eosinophils # (Manual) 1.7 K/mm3 (0.0-0.4) H 03/28/21 17:35 Basophils # (Manual) 0.2 K/mm3 (0.0-0.1) H 03/28/21 17:35 Metamyelocytes # 0.0 K/mm3 03/28/21 17:35 Myelocytes # 0.0 K/mm3 03/28/21 17:35 Promyelocytes # 0.0 K/mm3 03/28/21 17:35 Blast Cells # 0.0 K/mm3 03/28/21 17:35 WBC Morphology Not Reportable 03/28/21 17:35 Hypersegmented Neuts Not Reportable 03/28/21 17:35 Hyposegmented Neuts Not Reportable 03/28/21 17:35 Hypogranular Neuts Not Reportable 03/28/21 17:35 Smudge Cells Not Reportable 03/28/21 17:35 Toxic Granulation Not Reportable 03/28/21 17:35 Toxic Vacuolation Not Reportable 03/28/21 17:35 Dohle Bodies Not Reportable 03/28/21 17:35 Pelger-Huet Anomaly Not Reportable 03/28/21 17:35 Elaina Rods Not Reportable 03/28/21 17:35 Platelet Estimate Consistent w auto 03/28/21 17:35 Clumped Platelets Not Reportable 03/28/21 17:35 Plt Clumps, EDTA Not Reportable 03/28/21 17:35 Large Platelets Not Reportable 03/28/21 17:35 Giant Platelets Not Reportable 03/28/21 17:35 Platelet Satelliting Not Reportable 03/28/21 17:35 Plt Morphology Comment Not Reportable 03/28/21 17:35 RBC Morphology Not Reportable 03/28/21 17:35 Dimorphic RBCs Not Reportable 03/28/21 17:35 Polychromasia Not Reportable 03/28/21 17:35 Hypochromasia Not Reportable 03/28/21 17:35 Poikilocytosis Not Reportable 03/28/21 17:35 Anisocytosis 1+ 03/28/21 17:35 Microcytosis Not Reportable 03/28/21 17:35 Macrocytosis Not Reportable 03/28/21 17:35 Spherocytes Not Reportable 03/28/21 17:35 Pappenheimer Bodies Not Reportable 03/28/21 17:35 Sickle Cells Not Reportable 03/28/21 17:35 Target Cells Not Reportable 03/28/21 17:35 Tear Drop Cells Not Reportable 03/28/21 17:35 Ovalocytes Not Reportable 03/28/21 17:35 Helmet Cells Not Reportable 03/28/21 17:35 Davis-Bevington Bodies Not Reportable 03/28/21 17:35 Clarendon Rings Not Reportable 03/28/21 17:35 Floridalma Cells Not Reportable 03/28/21 17:35 Bite Cells Not Reportable 03/28/21 17:35 Crenated Cell Not Reportable 03/28/21 17:35 Elliptocytes Not Reportable 03/28/21 17:35 Acanthocytes (Spur) Not Reportable 03/28/21 17:35 Rouleaux Not Reportable 03/28/21 17:35 Hemoglobin C Crystals Not Reportable 03/28/21 17:35 Schistocytes Not Reportable 03/28/21 17:35 Malaria parasites Not Reportable 03/28/21 17:35 Charles Bodies Not Reportable 03/28/21 17:35 Hem Pathologist Commnt No 03/28/21 17:35 Sodium 139 mmol/L (137-145) 04/02/21 07:43 Potassium 4.2 mmol/L (3.6-5.0) 04/02/21 07:43 Chloride 101.9 mmol/L (98-107) 04/02/21 07:43 Carbon Dioxide 26 mmol/L (22-30) 04/02/21 07:43 Anion Gap 15 mmol/L 04/02/21 07:43 BUN 46 mg/dL (7-17) H 04/02/21 07:43 Creatinine 4.0 mg/dL (0.6-1.2) H 04/02/21 07:43 Estimated GFR 13 ml/min 04/02/21 07:43 BUN/Creatinine Ratio 12 % 04/02/21 07:43 Glucose 87 mg/dL (65-100) 04/02/21 07:43 Lactic Acid 0.60 mmol/L (0.7-2.0) L 03/28/21 20:04 Calcium 8.2 mg/dL (8.4-10.2) L 04/02/21 07:43 Total Bilirubin 0.40 mg/dL (0.1-1.2) 03/28/21 17:35 AST 12 units/L (5-40) 03/28/21 17:35 ALT 8 units/L (7-56) 03/28/21 17:35 Alkaline Phosphatase 151 units/L (35-129) H 03/28/21 17:35 Total Creatine Kinase 49 units/L (30-135) 03/29/21 07:31 CK-MB (CK-2) 3.9 ng/mL (0.0-4.0) 03/29/21 07:31 CK-MB (CK-2) Rel Index 7.9 (0-4) H 03/29/21 07:31 Troponin T 0.163 ng/mL (0.00-0.029) H* D 03/29/21 07:31 Total Protein 7.6 g/dL (6.3-8.2) 03/28/21 17:35 Albumin 3.5 g/dL (3.9-5) L 03/28/21 17:35 Albumin/Globulin Ratio 0.9 % 03/28/21 17:35 Triglycerides 182 mg/dL (2-149) H 03/28/21 17:35 Cholesterol 149 mg/dL (50-199) 03/28/21 17:35 LDL Cholesterol Direct 78 mg/dL (50-130) 03/28/21 17:35 HDL Cholesterol 32 mg/dL (40-59) L 03/28/21 17:35 Cholesterol/HDL Ratio 4.65 % 03/28/21 17:35 Urine Color Yellow (Yellow) 03/31/21 06:20 Urine Turbidity Clear (Clear) 03/31/21 06:20 Urine pH 5.0 (5.0-7.0) 03/31/21 06:20 Ur Specific Mat[place]y 1.013 (1.003-1.030) 03/31/21 06:20 Urine Protein 30 mg/dl mg/dL (Negative) 03/31/21 06:20 Urine Glucose (UA) 50 mg/dL (Negative) 03/31/21 06:20 Urine Ketones Neg mg/dL (Negative) 03/31/21 06:20 Urine Blood Neg (Negative) 03/31/21 06:20 Urine Nitrite Neg (Negative) 03/31/21 06:20 Urine Bilirubin Neg (Negative) 03/31/21 06:20 Urine Urobilinogen < 2.0 mg/dL (<2.0) 03/31/21 06:20 Ur Leukocyte Esterase Sm (Negative) 03/31/21 06:20 Urine WBC (Auto) 9.0 /HPF (0.0-6.0) H 03/31/21 06:20 Urine RBC (Auto) 3.0 /HPF (0.0-6.0) 03/31/21 06:20 Urine Mucus Few /HPF 03/31/21 06:20 Urine Eosinophils Rare (None Seen) 03/31/21 06:20 Urine Creatinine 111.4 mg/dL (0.1-20.0) H 03/31/21 06:20 Urine Sodium 42 mmol/L 03/31/21 06:20 Complement C3 104 mg/dL (83-193) 03/29/21 13:14 Complement C4 52 mg/dL (15-57) 03/29/21 13:14 Microbiology: Microbiology 03/28/21 17:35 Peripheral/Venous Blood Culture - Final NO GROWTH AFTER 5 DAYS 03/28/21 17:35 Peripheral/Venous Blood Culture - Final NO GROWTH AFTER 5 DAYS 03/31/21 06:20 Urine,Clean Catch Urine Culture - Final NO GROWTH AFTER 48 HOURS Cantu/IV: Voiding Method Incontinent Active Medications - Current Medications Current Medications: Generic Name Dose Route Start Last Admin Trade Name Freq PRN Reason Stop Dose Admin Acetaminophen 650 mg 03/28/21 19:23 Acetaminophen 325 Mg Tab PO Q4H PRN Pain MILD(1-3)/Fever >100.5/HILARIO Albuterol 2.5 mg 03/30/21 16:00 Albuterol 2.5 Mg/3 Ml Nebu IH Q4HRT PRN Shortness Of Breath Albuterol/Ipratropium 1 ampul 03/30/21 20:00 04/02/21 20:18 Ipratropium/Albuterol Sulfate 3 Ml Ampul.Neb IH 1 ampul TIDRT JEAN-PAUL Administration Arformoterol Tartrate 15 mcg 03/30/21 20:00 04/02/21 20:18 Arformoterol 15 Mcg/2 Ml Nebu IH 15 mcg Q12HRT JEAN-PAUL Administration Aspirin 81 mg 03/29/21 10:00 04/02/21 09:58 Aspirin 81 Mg Tab Chew PO 81 mg QDAY JEAN-PAUL Administration Budesonide 0.5 mg 03/30/21 20:00 04/02/21 20:18 Budesonide 0.5 Mg/2 Ml Nebu IH 0.5 mg Q12HRT JEAN-PAUL Administration Bupropion HCl 150 mg 03/28/21 22:00 04/02/21 21:36 Bupropion Sr 150 Mg Tab PO 150 mg BID JEAN-PAUL Administration Cetirizine HCl 10 mg 03/29/21 10:00 04/02/21 09:58 Cetirizine 10 Mg Tab PO 10 mg DAILY JEAN-PAUL Administration Hydromorphone HCl 0.5 mg 03/28/21 19:23 03/28/21 23:19 Hydromorphone 1 Mg/1 Ml Inj IV 0.5 mg Q12H PRN Administration Pain , Severe (7-10) Sodium Chloride 1,000 mls @ 100 mls/hr 03/31/21 13:30 04/01/21 06:17 Nacl 0.45% 1000 Ml IV 100 mls/hr DIRECT JEAN-PAUL Administration Ceftriaxone Sodium 1 gm in 50 mls @ 100 mls/hr 03/31/21 13:30 04/02/21 09:57 Rocephin/Ns 1 Gm/50 Ml IV 04/06/21 13:29 100 mls/hr Q24HR JEAN-PAUL Administration Protocol Montelukast Sodium 10 mg 03/28/21 22:00 04/02/21 21:35 Montelukast 10 Mg Tab PO 10 mg QHS JEAN-PAUL Administration Ondansetron HCl 4 mg 03/28/21 19:23 04/01/21 13:38 Ondansetron 4 Mg/2 Ml Inj IV 4 mg Q8H PRN Administration Nausea And Vomiting Oxycodone/Acetaminophen 1 tab 03/28/21 19:23 Oxycodone /Acetaminophen 5-325mg Tab PO Q8H PRN Pain, Moderate (4-6) Pantoprazole Sodium 40 mg 03/29/21 10:00 04/02/21 09:58 Pantoprazole 40 Mg Tab PO 40 mg DAILY JEAN-PAUL Administration Pregabalin 75 mg 03/28/21 20:00 04/02/21 20:41 Pregabalin 75 Mg Cap PO 75 mg TID JEAN-PAUL Administration Sertraline HCl 50 mg 03/29/21 10:00 04/02/21 09:58 Sertraline 50 Mg Tab PO 50 mg QDAY JEAN-PAUL Administration Sodium Chloride 10 ml 03/28/21 22:00 07/13/21 21:36 Sodium Chloride 0.9% 10 Ml Flush Syringe IV 10 ml BID JEAN-PAUL Administration Sodium Chloride 10 ml 03/28/21 19:23 Sodium Chloride 0.9% 10 Ml Flush Syringe IV PRN PRN LINE FLUSH Trazodone HCl 100 mg 03/29/21 22:00 04/02/21 21:35 Trazodone 100 Mg Tab PO 100 mg QHS JEAN-PAUL Administration Nutrition/Malnutrition Assess - Dietary Evaluation Nutrition/Malnutrition Findings: Nutrition Notes Start: 03/29/21 12:40 Freq: Status: Active Protocol: Document 04/02/21 15:51 CW (Rec: 04/02/21 15:57 CW [id number]) Nutrition Notes Initial or Follow up Reassessment Current Diagnosis Acute Kidney Injury,Diabetes, Hypertension,Heart Failure, Hyperlipidemia Other Pertinent Diagnosis demetia [facility] Labs/Tests BUN 46 Cr 4 Pertinent Medications reviewed Height 5 ft 4 in Weight 58.06 kg Usual Body Weight 77.27 kg [place] Body Weight (kg) 54.54 BMI 21.9 Weight Status Appropriate Subjective/Other Information F/u for intakes and ONS. Pt seems slightly confused but was able to report that she did noteat much of her breakfast nor the ONS. Pt encouraged to consume as much ONS as possible when she doesnt feel like eating. Per case management notes, pt likey to reutrn to hospice care. Will continue to encourage intakes. Recommend appetite stimulant. Temporal wasting noticable. Burn Absent Trauma Absent GI Symptoms None Difficulty In Chewing Current % PO Negligible Minimum of two criteria Yes Energy Intake (non-severe) <75% Estimated Energy Requirement >7 days Muscle Mass Moderate Depletion (severe) #2 Nutrition Diagnosis Malnutrition Etiology advanced age As Evidenced by Signs and Symptoms <75% Estimated Energy Requirement >7 days and Moderate Depletion (severe) #1 Nutrition Diagnosis Inadequate oral intake Diagnosis Progress(for reassessment Continues documentation) Is patient on ventilator? No Is Patient Ambulatory and/or Out of Bed No REE-([facility]-confined to bed) [phone] Calculation Used for Recommendations [facility] Additional Notes Protein: (1.25 - 1.5g/kg) 70 - 87g Fluid: 1 ml/kcal Nutrition Intervention Change Diet Order: Continue Add Supplement/Snack (indicate name/kcal Nepro BID /protein ) Provides kCal: 850 Provides Protein (gm) 38 Goal #1 Meet at least 75% of protein and energy needs via PO and ONS Anticipated Discharge Needs: Renal, mech soft with ONS daily Follow-Up By: 04/04/21 Additional Comments F/U for intakes and ONS
[2021-04-03] MEDS: PREGABALIN 75 MG CAP PO SCH ×2 (08:51→13:53)
[2021-04-03] MEDS: buPROPion SR 150 MG TAB PO SCH (09:02)
[2021-04-03] MEDS: ASPIRIN 81 MG TAB CHEW PO SCH (09:02)
[2021-04-03] MEDS: CETIRIZINE 10 MG TAB PO SCH (09:02)
[2021-04-03] MEDS: PANTOPRAZOLE 40 MG TAB PO SCH (09:02)
[2021-04-03] MEDS: SERTRALINE 50 MG TAB PO SCH (09:02)
[2021-04-03] MEDS: cefTRIAXone/NS 1 GM/50 ML 1 GM/50 ML BAG IV SCH (09:03)
[2021-04-03 09:24] LABS: Calcium 7.9 mg/dL (8.4-10.2)
--- NOTE | 2021-04-03 09:35 | Progress Note ---
Assessment and Plan Impression: * ELIZA- likely due to volume depletion, high risk atn; non-oliguric * metabolic acidosis- resolved * hyperkalemia--resolved * uremia/azotemia * volume depletion * AMS * Atrophic Right Kidney * Kidney stone Plan: * cr is stable today- 5.2->4.5->4.0->4.0->3.9 with good urine output * continue with IVF as tolerated, currently ordered for NS * off sodium bicarb gtt * replete k and mag prn * strict i/os and daily lytes * no emergent indication for head sawyer automatic today * renal diet with low k restriction * agree with urology consult, appreciate input per Dr. Todd Subjective Date of service: 04/03/21 Principal diagnosis: eliza/Atn Interval history: Resting this AM, no acute renal associated events noted. Objective - Exam Narrative Exam: Constitutional: no acute distress Head: NC/AT Neck: supple Lungs: clear to auscultation CV: RRR, no M/R/G Abdomen: soft, non-tender, bowel sounds present Back: nontender Extremities: no edema, pulses WNL Skin: intact Neuro: no focal deficits, alert and oriented x4 - Vital Signs Vital signs: Vital Signs - 12hr 04/02/21 04/03/21 04/03/21 22:00 03:07 08:53 Temperature 98.1 F Pulse Rate 78 Respiratory 16 17 Rate Blood Pressure 118/44 O2 Sat by Pulse 96 93 97 Oximetry - Lab 03/28/21 17:35 04/03/21 08:29 Most recent lab results Calcium 7.9 mg/dL (8.4-10.2) L 04/03/21 08:29 Urine Creatinine 111.4 mg/dL (0.1-20.0) H 03/31/21 06:20 Urine Sodium 42 mmol/L 03/31/21 06:20 Medications & Allergies - Medications Allergies/Adverse Reactions: Allergies No Known Allergies Allergy (Verified 03/28/21 16:27) Home Medications: Home Medications Medication Instructions Recorded Confirmed Last Taken Type Lispro Insulin [HumaLOG] 5 units SUB-Q ACHS 05/10/18 04/01/21 Unknown History Montelukast [Singulair] 10 mg PO QHS #30 tablet 03/03/19 03/28/21 Unknown Rx Pregabalin 75 mg PO TID #90 capsule 03/03/19 03/28/21 Unknown Rx amLODIPine 10 mg PO DAILY #30 tablet 03/03/19 03/28/21 Unknown Rx buPROPion SR [Wellbutrin SR] 150 mg PO BID #60 tablet 03/03/19 03/28/21 Unknown Rx Aspirin [Aspirin BABY CHEW TAB] 81 mg PO QDAY 03/28/21 03/28/21 Unknown History Donepezil HCl 10 mg PO DAILY 03/28/21 04/01/21 Unknown History Novolin 70-30 Flexpen 10 units SUB-Q QHS 03/28/21 04/01/21 Unknown History Pantoprazole [Protonix TAB] 40 mg QDAY 03/28/21 03/28/21 Unknown History Sertraline [Zoloft] 50 mg PO QDAY 03/28/21 03/28/21 Unknown History buPROPion HCL [Bupropion HCl Sr] 150 mg PO QDAY 03/28/21 03/28/21 Unknown History traZODone [Desyrel] 100 mg PO QHS 03/28/21 03/28/21 Unknown History Active Medications: Generic Name Dose Route Start Last Admin Trade Name Freq PRN Reason Stop Dose Admin Acetaminophen 650 mg 03/28/21 19:23 Acetaminophen 325 Mg Tab PO Q4H PRN Pain MILD(1-3)/Fever >100.5/HILARIO Albuterol 2.5 mg 03/30/21 16:00 Albuterol 2.5 Mg/3 Ml Nebu IH Q4HRT PRN Shortness Of Breath Albuterol/Ipratropium 1 ampul 03/30/21 20:00 04/02/21 20:18 Ipratropium/Albuterol Sulfate 3 Ml Ampul.Neb IH 1 ampul TIDRT JEAN-PAUL Administration Arformoterol Tartrate 15 mcg 03/30/21 20:00 04/02/21 20:18 Arformoterol 15 Mcg/2 Ml Nebu IH 15 mcg Q12HRT JEAN-PAUL Administration Aspirin 81 mg 03/29/21 10:00 04/03/21 09:02 Aspirin 81 Mg Tab Chew PO 81 mg QDAY JEAN-PAUL Administration Budesonide 0.5 mg 03/30/21 20:00 04/02/21 20:18 Budesonide 0.5 Mg/2 Ml Nebu IH 0.5 mg Q12HRT JEAN-PAUL Administration Bupropion HCl 150 mg 03/28/21 22:00 04/03/21 09:02 Bupropion Sr 150 Mg Tab PO 150 mg BID JEAN-PAUL Administration Cetirizine HCl 10 mg 03/29/21 10:00 04/03/21 09:02 Cetirizine 10 Mg Tab PO 10 mg DAILY JEAN-PAUL Administration Hydromorphone HCl 0.5 mg 03/28/21 19:23 03/28/21 23:19 Hydromorphone 1 Mg/1 Ml Inj IV 0.5 mg Q12H PRN Administration Pain , Severe (7-10) Sodium Chloride 1,000 mls @ 100 mls/hr 03/31/21 13:30 04/01/21 06:17 Nacl 0.45% 1000 Ml IV 100 mls/hr DIRECT JEAN-PAUL Administration Ceftriaxone Sodium 1 gm in 50 mls @ 100 mls/hr 03/31/21 13:30 04/03/21 09:03 Rocephin/Ns 1 Gm/50 Ml IV 04/06/21 13:29 100 mls/hr Q24HR JEAN-PAUL Administration Protocol Montelukast Sodium 10 mg 03/28/21 22:00 04/02/21 21:35 Montelukast 10 Mg Tab PO 10 mg QHS JEAN-PAUL Administration Ondansetron HCl 4 mg 03/28/21 19:23 04/01/21 13:38 Ondansetron 4 Mg/2 Ml Inj IV 4 mg Q8H PRN Administration Nausea And Vomiting Oxycodone/Acetaminophen 1 tab 03/28/21 19:23 Oxycodone /Acetaminophen 5-325mg Tab PO Q8H PRN Pain, Moderate (4-6) Pantoprazole Sodium 40 mg 03/29/21 10:00 04/03/21 09:02 Pantoprazole 40 Mg Tab PO 40 mg DAILY JEAN-PAUL Administration Pregabalin 75 mg 03/28/21 20:00 04/03/21 08:51 Pregabalin 75 Mg Cap PO 75 mg TID JEAN-PAUL Administration Sertraline HCl 50 mg 03/29/21 10:00 04/03/21 09:02 Sertraline 50 Mg Tab PO 50 mg QDAY JEAN-PAUL Administration Sodium Chloride 10 ml 03/28/21 22:00 04/03/21 09:03 Sodium Chloride 0.9% 10 Ml Flush Syringe IV 10 ml BID JEAN-PAUL Administration Sodium Chloride 10 ml 03/28/21 19:23 Sodium Chloride 0.9% 10 Ml Flush Syringe IV PRN PRN LINE FLUSH Trazodone HCl 100 mg 03/29/21 22:00 04/02/21 21:35 Trazodone 100 Mg Tab PO 100 mg QHS JEAN-PAUL Administration
[2021-04-03] MEDS: IPRATROPIUM/ALBUTEROL SULFATE 3 ML AMPUL.NEB IH SCH ×2 (10:25→14:35)
[2021-04-03] MEDS: BUDESONIDE 0.5 MG/2 ML NEBU IH SCH (10:25)
[2021-04-03] MEDS: ARFORMOTEROL 15 MCG/2 ML NEBU IH SCH (10:25)
--- NOTE | 2021-04-03 13:48 | Discharge Summary ---
Providers - Providers Date of Admission: 03/28/21 19:23 Date of discharge: 04/03/21 Attending physician: JOSELYN CONTRERAS 03/29/21 08:58 Consult to Physician [CONS] Routine Comment: Consulting Provider: RYAN HAIR Physician Instructions: Reason For Exam: Acute kidney injury/hyperkalemia 03/29/21 20:56 Consult to Wound/ET Nurse [CONS] Routine Reason For Exam: wound eval 04/01/21 16:36 Consult to Physician [CONS] Routine Comment: Consulting Provider: SOPHY TODD Physician Instructions: Reason For Exam: Urinary retention Primary care physician: HO TIRADO Hospitalization Reason for admission: Failure to thrive/metabolic encephalopathy Condition: Stable Pertinent studies: Chest x-ray CT abdomen and pelvis Renal nuclear scan Bladder ultrasound Hospital course: 80 YO Female with COPD, Vascular Dementia with Behavioral Disturbance, Cerebral Atherosclerosis, CVA, Diastolic CHF, DM, HTN, GERD, OA, Asthma, HLD, Seasonal Allergies imbalances was admitted through emergency room with altered level of consciousness, failure to thrive, advanced age General debility. Patient is bedbound and dependent on activities of daily living, patient was seen and evaluated in the emergency room noted to have severe metabolic encephalopathy, acute kidney injury as well as bladder outlet obstruction, patient was evaluated by urologist, catheterized and recommended frequent intermittent straight cath as needed to drain the bladder, cleared for discharge and follow-up as outpatient Patient also has acute kidney injury due to ATN and multiple electrolyte abnormalities, which were corrected promptly. UTI was promptly treated with appropriate antibiotics, urine cultures were negative to date. Symptoms slowly but gradually improved, case management and social services analyst have set up home health upon discharge. Cleared by all the consultants for discharge and follow-up as outpatient for further evaluation management. Patient is hemodynamically and clinically stable at discharge. Discharge diagnosis; --Urinary retention/bladder outlet obstruction: Urology evaluation and recommendations noted and appreciated. Urologist feels symptoms due to atrophic right kidney, nuclear scan requested and recommend outpatient urodynamics Recommend CIC [clean intermittent catheterization, to drain the bladder and remove use CIC as needed] DC Cantu, clean intermittent straight catheterization as needed to drain the bladder. --Acute kidney injury (ELIZA) with acute tubular necrosis (ATN) Gentle hydration, monitor renal function, avoid nephrotoxins. Nephrology following, trend creatinine levels Input output monitoring Patient had urinary retention, straight catheterization done relieved Again patient had urinary retention this morning, urology consulted Obstructive uropathy Abdominal CT scan findings reviewed follow urology evaluation and recommendations --Hyperkalemia; Present on admission, significantly improved Closely monitor electrolytes --Metabolic acidosis; due to acute kidney injury Treat the underlying cause, monitor closely and adjust as needed --Non-ST elevation NV; type II In the setting of acute kidney injury Patient does not have chest pain or cardiac symptoms Closely monitor --Vascular dementia with behavioral disturbance Supportive care, psych evaluation if needed --Volume depletion/ELIZA Gentle hydration monitor renal function --CHF (congestive heart failure)/fluid overload Blood pressure control, IV diuretics supportive care, fluid restriction, monitor fluid balance. LVEF 55 to 60%, congestion due to fluid overload -- COPD (chronic obstructive pulmonary disease) Oxygen titrate O2 sats to more than 90% Nebulizers, steroids as needed --DVT prophylaxis SCD to bilateral lower extremities while in bed --Full CODE STATUS Cleared by all the consultants for discharge and follow-up as outpatient Disposition: [id number] HOME UNDER HOME [facility] Final Discharge Diagnosis (Prints w/discharge instructions): Urinary retention. Hyperkalemia. Acute kidney injury. Metabolic acidosis. Vascular dementia. Volume depletion. CHF due to volume overload. Normal ejection fraction 55 to 60%. COPD Time spent for discharge: 35 min Core Measure Documentation - Palliative Care Palliative Care/ Comfort Measures: Hospice Care - Core Measures Any of the following diagnoses?: none Exam - Constitutional Vitals: Temp Pulse Resp BP Pulse Ox 98.1 F 78 17 118/44 97 04/03/21 03:07 04/03/21 03:07 04/03/21 08:53 04/03/21 03:07 04/03/21 08:53 General appearance: Present: no acute distress, well-nourished - EENT Eyes: Present: PERRL, EOM intact, scleral icterus, conjunctival injection - Neck Neck: Present: supple, normal ROM - Respiratory Respiratory effort: normal Respiratory: bilateral: diminished, negative: rales, rhonchi, wheezing - Cardiovascular Rhythm: regular Heart Sounds: Present: S1 & S2 - Extremities Extremities: no ischemia, No edema - Abdominal General gastrointestinal: Present: soft, non-tender, non-distended, distended - Integumentary Integumentary: Present: clear, warm - Musculoskeletal Musculoskeletal: strength equal bilaterally, generalized weakness - Psychiatric Psychiatric: appropriate mood/affect, other - Neurologic Neurologic: moves all extremities Plan Activity: advance as tolerated, fall precautions Diet: diabetic (As tolerated) Additional Instructions: Fall precautions. Urology advised to use CIC[clean intermittent catheterization[with straight cath] when ever patient is not able to pee. Follow urologist Dr. Todd in 1 to 2 weeks for further evaluation. Follow nephrology/kidney specialist in 1 to 2 weeks. If you have worsening symptoms contact MD or go to emergency room. Rest of the management per hospice medical referral coordinator Follow up with: HO TIRADO MD [Primary Care Provider] - 7 Days SOPHY TODD MD [Staff Physician] - 10 Days Prescriptions: donepeziL [Aricept] 10 mg PO QDAY #30 tablet Arformoterol Nebu [Brovana Nebu] 15 mcg IH Q12HRT #30 vial Aspirin EC [Halfprin EC] 81 mg PO QDAY #30 tablet. Pregabalin [Lyrica] 75 mg PO BID #30 capsule Pantoprazole [Protonix TAB] 40 mg PO DAILY #30 tablet Montelukast [Singulair] 10 mg PO QHS #30 tablet Sertraline [Zoloft] 50 mg PO QDAY #14 tablet
--- NOTE | 2021-04-03 14:14 | Nuclear Medicine Report ---
Renal Scan HISTORY: ATROPIC RT KIDNEY--EVAL SPLIT FX. TECHNIQUE: Patient was given 5.4 mCi of technetium MAG3. COMPARISON: CT abdomen/pelvis from 2 days prior FINDINGS: There is prompt radiotracer uptake in both kidneys with mild retention on the right. Split function is 54% on the left and 46% on the right. Normalized ERPF MAG3 in mL per minute is 10 o n the left and 9 on the right. The time/activity curves show gradual continuous radiotracer uptake throughout the exam without signi ficant excretion. Lasix was not administered to allow determination of time of half Lasix. Time of holder lf max is 26 minutes on the left and 27 minutes on the right. IMPRESSION: Renal findings as outlined above. Signer Name: Yan Alvarado MD Signed: 04/03/2021 2:10 PM Workstation Name: [id number]
--- NOTE | 2021-04-05 16:49 | Ultrasound Report ---
ULTRASOUND RENAL WITH PVR INDICATION / CLINICAL INFORMATION: Renal failure. COMPARISON: None available. FINDINGS: RIGHT KIDNEY: Length = 8.2 cm. - Echogenicity: Increased. -Parenchymal Thickness: Mild thinning at 1.4 cm. - Hydronephrosis: None. - Cyst / Mass: None. - Stones: None seen. LEFT KIDNEY: Length = 9.4 cm. - Echogenicity: Normal. -Parenchymal Thickness: Normal. - Hydronephrosis: None. - Cyst / Mass: None. - Stones: None seen. URINARY BLADDER: No significant abnormality. PRE-VOID VOLUME (mL): 524 mL POST-VOID VOLUME (mL): Patient was unable to void. ADDITIONAL FINDINGS: None. IMPRESSION: 1. Mild right renal parenchymal thinning. 2. The patient was unable to void for PVR images. Large volume within the bladder at 524 mL. POST-VOID RESIDUAL (PVR) GUIDELINES < 50 mL = Normal PVR < 100 mL = Normal PVR in patients > 65 > 100 mL = Consider elevated PVR > 200-300 mL = Large PVR Scribed by: Juliana Nolasco RDMS, RVT Scribed: 03/29/2021 3:32 PM I have reviewed the images, agree with this report, and edited this report as needed. Signer Name: Korey Cisse MD Signed: 03/29/2021 6:16 PM Workstation Name: [id number]
== END 2021-04-03 15:26 | disposition home health service (06) | DRG 682 ==
LOC: ED 16:26 → 3A 19:23
PROVIDERS: ADMIT Internal Medicine; ATTEND Internal Medicine
DX: N17.0 Acute kidney failure with tubular necrosis (principal); I21.A1 Myocardial infarction type 2; G93.41 Metabolic encephalopathy; F01.51 Vascular dementia, unspecified severity, with behavioral disturbance; E87.2 Acidosis; I50.32 Chronic diastolic (congestive) heart failure; I11.0 Hypertensive heart disease with heart failure; I67.2 Cerebral atherosclerosis; J44.9 Chronic obstructive pulmonary disease, unspecified; E87.5 Hyperkalemia; R33.8 Other retention of urine; N32.0 Bladder-neck obstruction; N20.0 Calculus of kidney; N26.1 Atrophy of kidney (terminal); K21.9 Gastro-esophageal reflux disease without esophagitis; E86.9 Volume depletion, unspecified; Z82.49 Family history of ischemic heart disease and other diseases of the circulatory system; Z83.3 Family history of diabetes mellitus; Z79.899 Other long term (current) drug therapy; Z86.73 Personal history of transient ischemic attack (TIA), and cerebral infarction without residual deficits
CPT/HCPCS: 36415; 71046; 74176; 76770; 78707; 80048; 80053; 80061; 81001; 82140; 82550; 82553; 82570; 84132; 84300; 84484; 85007; 85025; 86160; 87040; 87086; 89050; 93005; 94640; 94644; 96365; 96375; G0378; A9562; J0610; J0696; J1170; J1956; J2405; J3480; J7030; J7070